=== PATIENT | female | born 1945 | race Caucasian/White ===

== ENCOUNTER → 2016-11-12 | Outpatient (CLI) | payer MEDICARE ==
--- NOTE | 2016-11-12 16:31 | MR ---
EXAMINATION TYPE: MR lumbar spine wo con DATE OF EXAM: 11/12/2016 3:52 PM COMPARISON: NONE HISTORY: 71-year-old female INTERVERTEBRAL DISC DISORDER RADICULOPATHY. TECHNIQUE: Multiplanar, multisequence images of the lumbar spine were acquired. Contrast was not admi nistered as the exam was ordered without contrast. FINDINGS: Questionable large T2 hyperintense lesion partially visualized in the right hepatic lobe, axial T2 im age 30. This could be further evaluated with liver ultrasound. No prevertebral or paravertebral soft tissue abnormality. There is postsurgical change of L3-L5 posterior lumbar fusion. There is corresponding laminectomy and fixed grade 1 retrolisthesis at the fused L3-L4 level. Above the fusion at L2-L3, there is grade 1 retrolisthesis. Degenerative disc disease with bulging discs particularly above the fusion at L2-L3 and below the fus ion at L5-S1. Degenerative disc disease with desiccated and narrowed discs, particularly at L5-S1. Facet arthropathy at L2-L3 and L5-S1. Conus medullaris is normal. Vertebral body heights are preserved. Fatty matrix hemangioma within the T12 vertebral body without suspicious bone marrow replacement. At T12-L1, no spinal canal or neural foraminal stenosis. At L1-L2, minimal bulging disc without canal or foraminal stenosis. At L2-L3, there is grade 1 retrolisthesis with facet degenerative change and mild disc bulge. No sign ificant spinal canal stenosis. However, there appears to be kozq-hu-[id number] right neuroforaminal beni nosis. At L3, difficult to exclude some of the right transpedicular screw extending outside of the bone. Thi s appearance may be artifactual. At L3-L4, there is fixed retrolisthesis. Facet degenerative change with lateral disc osteophyte compl ex. This results in mild left and moderate right neuroforaminal stenosis. No spinal canal stenosis. L4, difficult to exclude some of the right transpedicular screw extending outside of the bone. It has a slight superior course and may minimally extend into the superior aspect of the right L4-L5 neurof oramen. At L4-L5, there is facet degenerative change with mild to moderate right and mild left neuroforaminal stenosis. No spinal canal stenosis. At L5, the left transpedicular screw may extend laterally outside of the bone and may extend into the superior aspect of the L5-S1 neuroforamen. At L5-S1, there is large diffuse disc bulge with ligamentum flavum thickening and facet degenerative change. Changes result in mild right and moderate left neural foraminal stenosis with mild spinal can al stenosis. IMPRESSION: 1. Status post L3-L5 posterior and interbody fusion with corresponding laminectomies. 2. Unable to adequately assess the hardware positioning by MRI. Some of the transpedicular screws may be extend slightly outside of the bone and a couple of the screws may minimally extend into the supe rior aspect of the neuroforamina. This appearance may be artifactual. CT could further evaluate if in dicated. 3. Degenerative changes above and below the fusion at L2-L3 and L5-S1. At L2-L3, there is a grade 1 r etrolisthesis with mild to moderate right neuroforaminal stenosis. 4. At L5-S1, there is mild spinal canal stenosis with moderate left neuroforaminal stenosis. 5. At the fused L3-L4 level, there is moderate right neuroforaminal stenosis and trau-ih-aslvythu on the right at the fused L4-L5 level. 6. There may be a large T2 hyperintense lesion within the right hepatic lobe only partially visualize d on the last image. Liver ultrasound recommended.
== END | disposition home or self-care (01) ==
LOC: RADMRIMAIN 15:02
PROVIDERS: ATTEND Emergency Medicine
DX: M48.07 Spinal stenosis, lumbosacral region (principal); M99.73 Connective tissue and disc stenosis of intervertebral foramina of lumbar region; M51.17 Intervertebral disc disorders with radiculopathy, lumbosacral region; M43.16 Spondylolisthesis, lumbar region; M47.27 Other spondylosis with radiculopathy, lumbosacral region; M43.26 Fusion of spine, lumbar region; Z98.890 Other specified postprocedural states; Z98.1 Arthrodesis status
CPT/HCPCS: 72148

== ENCOUNTER → 2016-11-18 | Outpatient (CLI) | payer MEDICARE ==
--- NOTE | 2016-11-18 14:00 | US ---
EXAMINATION TYPE: US abdomen limited DATE OF EXAM: 11/18/2016 12:37 PM COMPARISON: MRI lumbar spine 11/12/2016. CT abdomen and pelvis June 27, 2016 CLINICAL HISTORY: R93.8 ABN FINDINGS ON IMAGING/BODY STRUCTURES. EXAM MEASUREMENTS: Liver Length: 12.6 cm Gallbladder Wall: 0.2 cm CBD: 0.6 cm Right Kidney: 9.3 x 4.6 x 5.5 cm Pancreas: wnl Liver: Slight hyperechoic area right lobe; ?hemangioma vs technical artifact; borders are not well defined Gallbladder: No stones seen Evidence for sonographic Barton's sign: no CBD: wnl Right Kidney: No hydronephrosis or masses seen Pancreas is suboptimally evaluated on images saved secondary to shadowing from overlying bowel gas. V isualized liver is heterogeneous in appearance without evidence of worrisome intrahepatic mass or int rahepatic ductal dilatation. Evaluation for focal masses slightly suboptimal due to the heterogeneity . No large cyst is seen to correspond to the well-defined T2 hyperintense area on MRI, I suspect this likely reflects artifact as is only present on single axial image. IMPRESSION: No worrisome intrahepatic mass or intrahepatic ductal dilatation is seen to correlate to area of MRI concern inferior right hepatic lobe.
== END | disposition home or self-care (01) ==
LOC: RADUSWWP 12:12
PROVIDERS: ATTEND Internal Medicine
DX: R93.8 Abnormal findings on diagnostic imaging of other specified body structures (principal)
CPT/HCPCS: 76705

== ENCOUNTER → 2016-12-14 | Outpatient (CLI) | payer MEDICARE ==
--- NOTE | 2016-12-15 08:20 | CT ---
EXAMINATION TYPE: CT lumbar spine wo con DATE OF EXAM: 12/14/2016 6:59 PM COMPARISON: MRI 11/12/2016 HISTORY: Bilateral leg numbness after lumbar laminectomy CT DLP: 930 mGycm. Automated exposure control for dose reduction was used. TECHNIQUE: Unenhanced CT of the lumbar spine was performed. Bone and soft tissue window settings are submitted as well as coronal and sagittal reconstructions. FINDINGS: The bilateral pedicle fixation screws and spinal hardware is intact, without periprosthesis lucencies. The paraspinal soft tissues are negative for acute or subacute findings. There are no foc al skeletal lesions. No incidental extraspinal findings. Degenerative examination: L1-L2: Normal disc space height. No disc herniation protrusion or central stenosis. No facet joint arthropathy. No evidence for foraminal encroachment. L2-L3: The mild L2 retrolisthesis upon L3 which was seen on the November 12, 2016 MRI is unaltered. Modera tely diminished disc space height, with moderate circumferential disc bulge. Mild facet joint arthrop athy. No evidence for foraminal encroachment. L3-L4: Metallic disc spacer present. Moderate-marked loss of disc height. No focal disc extrusion/ pr otrusion, and no central stenosis. No evidence for foraminal encroachment. L4-L5: Metallic disc spacer present. Moderate-marked loss of disc height. No focal disc extrusion/ pr otrusion, and no central stenosis. No evidence for foraminal encroachment. L5-S1: There is marked disc space narrowing with moderate marked circumferential disc bulge and with bilateral ligamentum flavum hypertrophy and bilateral facet osteophytic spurring; these changes produ ce lateral recess and central canal stenosis at the lumbosacral junction. The disc bulge causes a bro ad-based anterior epidural defect, abutting the S1 nerve roots within their lateral recesses bilatera lly. There is also narrowing of the bilateral L5 neural foramen due to osteophytic spurring and disc bulging. Overall appearance is similar when compared to the MRI of November 12, 2016. IMPRESSION: 1. NO ACUTE PROCESS. 2. L5-S1 DEGENERATIVE DISC AND FACET CHANGES
== END | disposition home or self-care (01) ==
LOC: RADCTMAIN 18:38
PROVIDERS: ATTEND Specialist
DX: M51.17 Intervertebral disc disorders with radiculopathy, lumbosacral region (principal); M46.07 Spinal enthesopathy, lumbosacral region; M96.1 Postlaminectomy syndrome, not elsewhere classified
CPT/HCPCS: 72131

== ENCOUNTER → 2017-05-10 | Outpatient (CLI) | payer MEDICARE ==
--- NOTE | 2017-05-10 16:04 | XR ---
EXAMINATION TYPE: XR chest 2V DATE OF EXAM: 05/10/2017 COMPARISON: Chest x-ray 06/26/2016 HISTORY: Presurgical, lumbar radiculopathy TECHNIQUE: Frontal and lateral views of the chest are obtained. FINDINGS: Patient is post median sternotomy and cardiac valve replacement. Surgical clips present in the right paratracheal location. Postop change noted in the lumbar spine. Strand-like densities in t he left midlung are stable and likely represents scar. There is no evident pneumonia, pneumothorax, o r pleural effusion. Cardiac mediastinal silhouette, pulmonary vascularity and manuel are stable. IMPRESSION: No acute cardiopulmonary process.
== END | disposition home or self-care (01) ==
LOC: RADXRMAIN 15:03
PROVIDERS: ATTEND Physical Medicine & Rehabilitation
DX: Z01.810 Encounter for preprocedural cardiovascular examination (principal); M54.16 Radiculopathy, lumbar region
CPT/HCPCS: 71020; 93005

== ENCOUNTER → 2017-05-12 | Outpatient (CLI) | payer MEDICARE ==
[2017-05-12 11:45] LABS: CH 29.7; CHCM 32.2; HCT 40.4 % (34.0-46.0); HDW 2.24; HGB 13.1 gm/dL (11.4-16.0); MCH 29.9 pg (25.0-35.0); MCHC 32.3 g/dL (31.0-37.0); MCV 92.6 fL (80.0-100.0); Mean Platelet Volume 7.7; RBC 4.36 m/uL (3.80-5.40); RDW 14.2 % (11.5-15.5)
[2017-05-12 11:48] LABS: Appearance,Urine Clear (Clear); Bilirubin,Urine Negative (Negative); Glucose,Urine (UA) Negative (Negative); Ketones,Urine Negative (Negative); Leukocyte Esterase,Urine Negative (Negative); Nitrite,Urine Negative (Negative); PH, Urine 6.5 (5.0-8.0); Protein,Urine Negative (Negative); Specific Gravity,Urine 1.014 (1.001-1.035); UA Billing (MACRO vs. MICRO) CHEM; Urobilinogen,Urine <2.0 mg/dL (<2.0)
[2017-05-12 11:52] LABS: Prothrombin Time 9.9 sec (9.0-12.0)
[2017-05-12 11:57] LABS: Blood Urea Nitrogen 13 mg/dL (7-17); Non-African American GFR(MDRD) >60 (>60 ml/min/1.73 sqM)
[2017-05-12 14:17] LABS: Anion Gap 9 mmol/L; Carbon Dioxide 25 mmol/L (22-30); Chloride 106 mmol/L (98-107); Glucose 92 mg/dL (74-99); Potassium 4.2 mmol/L (3.5-5.1); Sodium 140 mmol/L (137-145)
[2017-05-12 14:48] LABS: Nucleated Red Blood Cells 0 /100 WBC (0-0); Total Cells Counted 100
[2017-05-12 14:49] LABS: RBC Morphology Normal
== END | disposition home or self-care (01) ==
LOC: LABWHC1 10:45
PROVIDERS: ATTEND Specialist
DX: Z01.812 Encounter for preprocedural laboratory examination (principal); M54.16 Radiculopathy, lumbar region
CPT/HCPCS: 36415; 80051; 81003; 82565; 82947; 84520; 85027; 85610; 85730; 87070; 87086

== ENCOUNTER → 2017-12-22 | Outpatient (CLI) | payer MEDICARE ==
--- NOTE | 2017-12-22 14:52 | BD ---
EXAMINATION TYPE: Axial Bone Density DATE OF EXAM: 12/22/2017 COMPARISON: 2001 CLINICAL HISTORY: post menopausal Height: 5'1 Weight: 128 FRAX RISK QUESTIONS: History of Fracture in Adulthood: y L spine : surgery 2014 Secondary Osteoporosis: 3. Menopause before 43: y RISK FACTORS HISTORY OF: Postmenopausal woman: y Lost more than 2 inches in height since high school: y MEDICATIONS: Additional Medications: reflux, heart, Additional History: drop foot EXAM MEASUREMENTS: Bone mineral densitometry was performed using the [employer] System. Bone mineral density about the R hip (g/cm2): 0.800 Bone mineral density about the L hip (g/cm2): 0.827 T Score values are as follows: -----R Neck: -1.7 -----L Neck: -1.5 -----R Total: -0.9 -----L Total: -1.0 Bone mineral density has: Decreased -14.5% since study of: 10/04/2001 Bone mineral density about the L Wrist (g/cm2): 0.491 T Score values are as follows: -----Dist. R+U: -2.7 -----Prox. R+U: -2.6 -----Radius total: -3.0 IMPRESSION: Osteoporosis (T Score less than -2.5). There is increased fracture risk and therapy is usually indicated based on age. Re-Screen 1-2 years. NOTE: T-SCORE=SD OF THE YOUNG ADULT MEAN.
--- NOTE | 2017-12-23 14:17 | MM ---
Reason for exam: screening (asymptomatic). Last mammogram was performed 1 year and 10 months ago. History: Patient is postmenopausal. Family history of premenopausal breast cancer in mother at age 38. Benign stereotactic core biopsy of the right breast, April 06, 2003. Took estrogen for 20 years 9 months. Physical Findings: A clinical breast exam by your physician is recommended on an annual basis and results should be correlated with mammographic findings. MG Screening Mammo w CAD Bilateral CC and MLO view(s) were taken. Prior study comparison: February 14, 2016, bilateral MG screening mammo w CAD. February 07, 2015, bilateral MG screening mammo w CAD. The breast tissue is extremely dense which could obscure a lesion on mammography. Previous mammotome biopsy in the right breast, stable adjacent grouped calcifications. No significant changes when compared with prior studies. ASSESSMENT: Benign, BI-RAD 2 RECOMMENDATION: Routine screening mammogram of both breasts in 1 year.
== END | disposition home or self-care (01) ==
LOC: RADMAMWWP 10:17
PROVIDERS: ATTEND Internal Medicine
DX: Z12.31 Encounter for screening mammogram for malignant neoplasm of breast (principal); M81.0 Age-related osteoporosis without current pathological fracture; Z78.0 Asymptomatic menopausal state
CPT/HCPCS: 77067; 77080

== ENCOUNTER 2018-09-19 10:24 | Observation (INO) | payer MEDICARE ==
[2018-09-19] MEDS ORDERED: ASPIRIN 81 MG PO STA (11:17)
[2018-09-19] MEDS ORDERED: NITROGLYCERIN OINT 1 INCH/GM PACKET TOPICAL STA (11:17)
[2018-09-19] MEDS ORDERED: HEPARIN SODIUM,PORCINE 5,000 UNIT/ML 1 ML VIAL IV STA (11:17)
[2018-09-19] MEDS ORDERED: DILTIAZEM 125 MG in SODIUM CHLORIDE 0.9% 100 ML IV SCH (11:30)
[2018-09-19] MEDS ORDERED: HEPARIN SOD,PORK IN 0.45% NACL 25,000 UNIT in 0.45% NACL 1 250ML.BAG IV SCH (11:30)
[2018-09-19 11:53] LABS: Basophils % (A) 1 %; Eosinophils # (A) 0.1 k/uL (0-0.7); Eosinophils % (A) 2 %; HCT 48.2 % (34.0-46.0); HGB 15.5 gm/dL (11.4-16.0); Lymphocytes # (A) 2.1 k/uL (1.0-4.8); Lymphocytes % (A) 39 %; MCH 29.1 pg (25.0-35.0); MCHC 32.1 g/dL (31.0-37.0); MCV 90.7 fL (80.0-100.0); Mean Platelet Volume 6.6; Monocytes # (A) 0.2 k/uL (0-1.0); Monocytes % (A) 5 %; Neutrophils # (A) 2.8 k/uL (1.3-7.7); Neutrophils % (A) 53 %; Platelet Count 210 k/uL (150-450); RBC 5.32 m/uL (3.80-5.40); RDW 14.6 % (11.5-15.5); WBC 5.3 k/uL (3.8-10.6)
--- NOTE | 2018-09-19 12:02 | ED ---
Chest Pain HPI - General Chief Complaint: Chest Pain Stated Complaint: chest pain/SOB Source: patient Mode of arrival: ambulatory - History of Present Illness Initial Comments: This 73-year-old white female presents with a complaint of some intermittent chest pain over the last week. She states that it feels like a pressure type sensation in her left chest that usually only lasts several seconds. It will occur with exertion but will also occur at rest. It does not radiate. It is associated with some shortness of breath but she denies any palpitations. She does relate a history of previous coronary artery disease as well as valve replacement and atrial fibrillation. She states that she has had 2 ablations done for atrial fibrillation. She is not normally in atrial fibrillation. She previously was on blood thinners but these were stopped as she became anemic. She sees Dr. Bolivar from cardiology. She denies any leg pain or swelling. No other complaints or modifying factors. - Related Data Home Medications Medication Instructions Recorded Confirmed Diltiazem HCl [Cardizem Cd] 360 mg PO DAILY 08/02/15 09/19/18 Temazepam 30 mg PO HS PRN 02/26/16 09/19/18 Ibandronate Sodium 150 mg PO Q30D 09/19/18 09/19/18 Omeprazole [PriLOSEC] 20 mg PO DAILY 09/19/18 09/19/18 Red Yeast Rice 600 mg PO DAILY 09/19/18 09/19/18 Allergies Allergy/AdvReac Type Severity Reaction Status Date / Time atenolol Allergy VERY LOW Verified 09/19/18 12:25 PULSE, LOW BLOOD PRESSURE Influenza Virus Vaccines AdvReac Severe Rapid Verified 09/19/18 12:25 Heart Rate sertraline [From Zoloft] AdvReac Mild bad dreams Verified 09/19/18 12:25 BETA BLOCKERS Allergy LOW BLOOD Uncoded 10/08/16 10:18 PRESSURE,LOW HEART RATE Review of Systems ROS Statement: Those systems with pertinent positive or pertinent negative responses have been documented in the HPI. ROS Other: All systems not noted in ROS Statement are negative. Past Medical History Past Medical History: Atrial Fibrillation, Coronary Artery Disease (CAD), GERD/Reflux, Hyperlipidemia, Musculoskeletal Disorder, Osteoarthritis (OA), Supraventricular Tachycardia (SVT) Additional Past Medical History / Comment(s): Recent admission to [facility] w/ Hbg of 5,Coronary artery disease, aortic valve replacement for aortic stenosis, migraine headaches, GI bleed,nephrolithiasis History of Any Multi-Drug Resistant Organisms: None Reported Past Surgical History: Back Surgery, Coronary Bypass/CABG, Hysterectomy, Orthopedic Surgery Additional Past Surgical History / Comment(s): LEFT HAND SURGERY, BACK SURGERY X2, coronary artery bypass surgery and aortic valve replacement and repair of a cardiac hole/defect, probably a PFO, EGD and colonoscopy that was done in June 2016 Past Anesthesia/Blood Transfusion Reactions: No Reported Reaction Additional Past Anesthesia/Blood Transfusion Reaction / Comment(s): Was confused when waking up from open-heart surgery. Past Psychological History: No Psychological Hx Reported Smoking Status: Former smoker Past Alcohol Use History: None Reported Past Drug Use History: None Reported - Past Family History Mother Family Medical History: No Reported History Father Additional Family Medical History / Comment(s): embolism General Exam - General Exam Comments Initial Comments: GENERAL: The patient is well nourished and well hydrated. VITAL SIGNS: Heart rate, blood pressure, respiratory rate reviewed as recorded in nurse's notes. EYES: Pupils are round and reactive. Extraocular movements are intact. No conjunctival / lid redness or swelling. ENT: No external evidence of injury, swelling, or ecchymosis. Airway is patent. Throat is clear. NECK: Nontender. No swelling or evidence of injury. No subcutaneous emphysema. Trachea is midline. No thyroid mass. HEART: Tachycardic irregular rhythm noted at 110. Good peripheral pulses. LUNGS/CHEST: Breath sounds clear and equal bilaterally. No rales, rhonchi, or wheezes. No ecchymosis, subcutaneous emphysema, or tenderness. ABDOMEN: Abdomen soft without tenderness. No palpable masses or organomegaly. No peritoneal signs. No abdominal wall swelling or ecchymosis. EXTREMITIES: No extremity tenderness. Normal muscle tone and function. No thoracolumbar tenderness. NEUROLOGIC: Sensation is grossly intact. Cranial nerve exam reveals face is symmetrical, tongue is midline, speech is clear. SKIN: No abrasions or ecchymosis is noted. No induration or masses noted. PSYCHIATRIC: Alert and oriented. Appropriate behavior and judgment. Course Vital Signs 09/19/18 09/19/18 09/19/18 10:34 10:56 11:00 Temperature 97.4 F L Pulse Rate 81 125 H 90 Pulse Rate [ Scientific Editor ] Respiratory 18 15 19 Rate Blood Pressure 115/70 145/92 O2 Sat by Pulse 99 98 99 Oximetry 09/19/18 09/19/18 09/19/18 11:32 11:34 12:00 Temperature Pulse Rate 93 96 Pulse Rate [ 105 H Scientific Editor ] Respiratory 18 16 Rate Blood Pressure 109/81 O2 Sat by Pulse 99 99 Oximetry 09/19/18 13:00 Temperature Pulse Rate 78 Pulse Rate [ Scientific Editor ] Respiratory 16 Rate Blood Pressure 141/89 O2 Sat by Pulse 96 Oximetry Chest Pain MDM - MDM The patient was seen and examined. All diagnostics were reviewed. EKG shows atrial fibrillation at a rate of 109. There is no acute ST-T wave changes noted. The QRS duration is 82 and the QTc interval is 476. An IV is established and she does receive heparin intravenously. She was going to have Cardizem started but her heart rate came down spontaneously to between 70-80 bpm. The laboratories reviewed and is unremarkable. The chest x-ray does not show any acute processes. She is doing well on recheck and is chest pain-free. The case is discussed with Dr. Reveles and he is agreeable with admission with cardiology to consult. Disposition Clinical Impression: Atrial fibrillation with rapid ventricular response, Chest pain, Dyspnea, Unstable angina Disposition: ADMITTED IP TO THIS HOSP Condition: Fair Is patient prescribed a controlled substance at d/c from ED?: No Referrals: Enoch Reveles MD [Primary Care Provider] - 1-2 days Time of Disposition: 13: Decision Date: 09/19/18 Decision Time: :34
[2018-09-19 12:03] LABS: Albumin 4.8 g/dL (3.5-5.0); Calcium 9.7 mg/dL (8.4-10.2); Magnesium 2.1 mg/dL (1.6-2.3); Potassium 4.4 mmol/L (3.5-5.1); Total Bilirubin 0.7 mg/dL (0.2-1.3); Total Protein 8.4 g/dL (6.3-8.2)
[2018-09-19 12:15] LABS: INR 0.9 (<1.2); Partial Thromboplastin Time 22.8 sec (22.0-30.0); Prothrombin Time 9.8 sec (9.0-12.0)
--- NOTE | 2018-09-19 13:15 | XR ---
EXAMINATION TYPE: XR chest 1V portable DATE OF EXAM: 09/19/2018 COMPARISON: Prior chest x-ray 05/10/2017 HISTORY: Chest pain, irregular heartbeat TECHNIQUE: Single frontal view of the chest is obtained. FINDINGS: There is been interval placement of a thoracic cord stimulator is overlying the midthoraci c spine. Patient is post median sternotomy, paratracheal density surgical clips are again noted. No e vident airspace disease, pneumothorax, or pleural effusion. Postop changes are noted to the lumbar sp ine. Stimulator is present over the right abdomen. 2 metallic density superimposed over the approxima te T10 vertebral body. Patient is rotated. There are cardiac leads. IMPRESSION: No acute process.
[2018-09-19] MEDS ORDERED: NITROGLYCERIN SL TABS 0.4 MG TAB SUBLINGUAL PRN (13:35)
[2018-09-19] MEDS ORDERED: TEMAZEPAM 30 MG CAP PO PRN (13:39)
[2018-09-19] MEDS: NITROGLYCERIN OINT 1 INCH/GM PACKET TOPICAL SCH (20:44)
--- NOTE | 2018-09-19 21:43 | HP ---
HISTORY AND PHYSICAL Lakesha is a 73-year-old female who presented with chief complaint of chest pain. HISTORY OF PRESENT ILLNESS: The patient who does have cardiac history, 73, presented with intermittent chest discomfort, mostly left-sided. The pain though came and went fairly quickly, usually over the past 24-48 hours. The day before on the morning of admission though she was also complaining of lightheadedness, weakness, shortness of breath along with this pain. The pain did come on with exertion and rest. It did not seem to escalate further with exertion though and not associated with any nausea, vomiting. The patient did not have any palpitations. PAST MEDICAL HISTORY: Patient does have a history of previous atrial fibrillation and previous ablated therapies and with a history of previous gastrointestinal bleeding. She was able to be taken off of her blood thinners and seemed to be remaining in sinus rhythm. Other significant past medical history: She does have history of replacement of bicuspid aortic valve and has had some surgery previously for atrial septal defect which was closed also in the past wound. She has had some bypass surgery for coronary artery disease with the HARPER to the LAD and a patch angioplasty with repair of the right-sided superior vena cava. This procedure was done back in 2016 in [place]. She has a history of hypertension and hyperlipidemia. She has also had previous lumbar surgeries for which she has had problems with some chronic pain and history of underlying depression. No history of diabetes or stroke. HOME MEDICATIONS: She does have insomnia and takes temazepam 30 mg at HS that works to some extent. She is also on red yeast rice as she has had problems with statins for cholesterol and she is on 600 mg daily, omeprazole 200 mg daily, ibandronate sodium 150 mg every month for osteoporosis and Cardizem CD 360 mg daily. ALLERGIES: She has had increased sensitivity with low heart rates and blood pressure with atenolol. She has had rapid heart rates with influenza virus vaccine. Sertraline, she has had problems with nightmares. REVIEW OF SYSTEMS: As mentioned in the history of present illness with no unusual headache or no nausea, vomiting. No fever, chills, or cough. No urinary or bowel symptoms. No blood per stool. She does have some chronic trace to 1+ edema intermittently. FAMILY HISTORY: Noncontributory. SOCIAL HISTORY: She is a former smoker, but quit over 20 years ago. She does live locally with her in the [facility]. Only occasional alcohol and once again she does not smoke at this time. PHYSICAL EXAMINATION: She is sitting up in bed in her room. Does not appear to be in any acute distress at this time. VITAL SIGNS: Show a temperature of 97.4 with a pulse of 82 now, which is regular. Respirations are 18. In the emergency room her pulse had gone up to 110 and was irregular and showed atrial fib on the monitor and EKG. Her blood pressure is 143/75, and she is 96% saturated on room air. HEENT is unremarkable. Extraocular movements are intact. Neck is not stiff. There is no definite bruits or adenopathy detected. Lungs were clear. Heart tones were at this time, regular. No definite murmurs or rubs appreciated. Breasts and pelvic exam is deferred. Abdomen is soft and nontender without rebound, guarding, or masses. Extremities reveal some trace pedal edema. The legs are warm. No ulcerations. Neurologically she is alert and oriented. Cranial nerves intact. No focal weakness of the peripheral extremities noted. LABORATORY TESTING: Revealed a white count of 5.3, hemoglobin 15.5 and a platelet count of 210. Her INR was 0.9. Sodium 141 with potassium 4.4. CO2 content of 23. Random blood sugar was 100. She has had troponins done x2 which have been less than 0.012. Total protein is slightly high at 8.4 and albumin 4.8. Liver function tests were good. Chest x-ray showed no acute process. The EKG shows atrial fibrillation rhythm with a very rapid ventricular response but no definite ischemic changes noted in ST-T wave. IMPRESSION: Overall impression is this 73-year-old female presented with chest pain, dizziness, weakness, some increasing shortness of breath over the past 24-48 hours and found to be in atrial fibrillation with a rapid ventricular response which has presently converted to sinus. She did have some left-sided chest pain which has been rather fleeting in nature. There is no reproducible tenderness to the chest wall at this time. She does have a past medical history as stated above with a history of aortic valve replacement and coronary artery disease with bypass surgery along with closure of atrial septal defect and history of hypercholesterolemia and hypertension in the past. as risk factors presently. At this time plans are to monitor the patient. She has been placed on heparin. We will continue her troponin evaluations and cardiology consult has been placed for further evaluation and recommendations regarding her paroxysmal atrial fibrillation. MMODL / IJN: [id number] / CONCEPCION
[2018-09-20] MEDS: NITROGLYCERIN OINT 1 INCH/GM PACKET TOPICAL SCH ×2 (00:18→06:15)
[2018-09-20 01:14] LABS: Cholesterol 239 mg/dL (<200); HDL Cholesterol 78 mg/dL (40-60); LDL Cholesterol,Calculated 138 mg/dL (0-99); Triglycerides 114 mg/dL (<150)
[2018-09-20] MEDS ORDERED: IBANDRONATE SODIUM 150 MG PO SCH (06:00)
[2018-09-20] MEDS ORDERED: PANTOPRAZOLE 40 MG TABLET PO SCH (07:30)
--- NOTE | 2018-09-20 07:40 | P.PN ---
Progress Note - Text Patient is a 73 year old female who presented with chest pain along with increasing shortness of breath and dizziness. She was found to be in atrial fibrillation with a rapid ventricular response. The patient yesterday evening did convert to a sinus rhythm. She is not complaining of any further chest pain at this point. She is easily aroused and in no acute distress this morning. Vital signs show temperature 97.9 with a pulse in the 50s up to 67. Sinus rhythm on monitor pattern. Respiratory rate of 14 and blood pressure 118/78. She is 97% saturated on room air. Lungs are generally clear. Heart tones were regular. No unusual edema. No focal neurological changes. Laboratory Patient is on heparin and her PTT is 67. Troponins less than 0.012. Impression and plans Patient did present with recurrence of her atrial fibrillation but is now in sinus rhythm. She does have underlying coronary artery disease along with previous septal defect closure and other risk factors as delineated in the H&P. She has had previous aortic valve replacement. We'll await for further recommendations from cardiology today regarding further evaluation, treatment and disposition.
[2018-09-20 07:58] VITALS: BP 94/54; PULSE 63; RESP 18; TEMP 97.6
[2018-09-20] MEDS ORDERED: APIXABAN 2.5 MG TABLET PO SCH (09:00)
[2018-09-20] MEDS ORDERED: NON-FORMULARY DRUG (Red Yeast Rice [Red Yeast Rice] 600 MG) PO SCH (09:00)
[2018-09-20] MEDS ORDERED: ASPIRIN 325 MG TAB PO SCH (09:00)
[2018-09-20] MEDS ORDERED: ATORVASTATIN 20 MG TAB PO SCH (09:00)
[2018-09-20] MEDS ORDERED: DILTIAZEM CD 180 MG CAP.ER.24H PO SCH (09:00)
--- NOTE | 2018-09-20 11:17 | CONS ---
CONSULTATION Mrs. Lakesha Sebastian is a 73-year-old lady with a known history of a bicuspid aortic valve and atrial septal defect. Several years ago, she underwent closure of atrial septal defect, but bicuspid aortic valve was addressed about 5 years ago, approximately when she underwent aortic valve replacement with a tissue valve with some repair and enlargement of the aortic outflow tract as well. She also had at that time a MAZE procedure performed as well and a single-vessel bypass to LAD was performed. This lady has history of atrial fibrillation for which she underwent ablation on [address] Soto. She is severely intolerant of beta blockers. She has also had severe GI bleeding requiring multiple units of blood transfusion and since then her anticoagulation was withheld. Her cardiac catheterization was performed in 2014 and she underwent aortocoronary bypass surgery at that time at [facility] with aortic valve replacement as well. She had a single graft placed at the LAD, which was the HARPER graft. She came in yesterday with a 2-day history of having uncomfortable feeling in the chest with a sensation of palpitations and also some chest discomfort. She was found to be in atrial fibrillation with a moderate ventricular rate and she was has been hospitalized. Her [place] troponins are negative, and after she came into the ER while they were preparing to give her Cardizem intravenously, she had a slower heart rate and then converted to sinus rhythm. She feels well has no chest pain at this time. She is in sinus rhythm, asymptomatic at the time of my evaluation. PAST MEDICAL HISTORY: 1. Remarkable for bicuspid aortic valve in ASD. More than 20 years ago she had a ASD repair performed. She had aortic valve replacement and a HARPER to LAD performed in 2014 at [facility]. 2. History of atrial fibrillation status post ablation. 3. Severe intolerance to beta blockers. 4. History of GI bleeding and had anticoagulation was held about 1-1/2 or 2 years ago. MEDICATIONS: At home include Cardizem CD 360 mg daily, she takes Prilosec 20 mg daily. She also takes some temazepam 30 mg at bedtime. ALLERGIES: She is allergic or intolerant of BETA BLOCKERS. She is allergic to ZOLOFT. PHYSICAL EXAMINATION: Blood pressure is 118/70, pulse rate is about 70, sinus. HEENT: Unremarkable. Fundus was not examined by me. Neck is supple. No JVD. I do not hear a carotid bruit. Heart exam reveals S1, S2 with a short systolic murmur at the base. Second heart sound is preserved. Lungs revealed decent air entry. Abdomen is soft, nontender. Lower extremities reveal palpable pulses. No edema. Central nervous system is normal. EKG revealed initially atrial fib moderate ventricular rate. Repeat EKG revealed a sinus mechanism with nonspecific ST changes. IMPRESSION: 1. Paroxysmal atrial fibrillation, back in sinus rhythm. 2. History of aortic valve replacement and single-vessel bypass surgery for bicuspid aortic valve as well as repair of ASD performed surgically more than 25 years ago. 3. History of atrial fibrillation, status post pulmonary vein isolation by Dr. Soto on 2 occasions. 4. Intolerance to beta blockers. RECOMMENDATIONS: Patient is back in sinus rhythm. I am recommending that we start her on Eliquis and after much discussion I will start it at a lower dose of 2.5 mg b.i.d. mainly because of patient's concern about GI bleeding and previous significant bleeding requiring transfusion, which is more than 2 years ago. I will not add any other medications. She has been intolerant of amiodarone and also beta blockers. I will leave her on Cardizem CD 360 mg daily, Eliquis 2.5 mg b.i.d., stop aspirin. She can be discharged and I will see her in the office in 2 weeks. I discussed my thoughts in detail with the patient and we will provide her with some Eliquis samples. Thank you very much for the consult. DAPHNIEL / IJN: [id number] /
--- NOTE | 2018-09-20 11:53 | ECHOF ---
Referral Reason:cp, a-fib MEASUREMENTS -------- HEIGHT: 160.0 cm WEIGHT: 59.0 kg BP: 141/89 RVIDd: 2.8 cm (< 3.3) IVSd: 1.0 cm (0.6 - 1.1) LVIDd: 3.7 cm (3.9 - 5.3) LVPWd: 1.0 cm (0.6 - 1.1) IVSs: 1.5 cm LVIDs: 2.6 cm LVPWs: 1.5 cm LA Diam: 4.3 cm (2.7 - 3.8) LAESV Index (A-L): 35.27 ml/m Ao Diam: 2.6 cm (2.0 - 3.7) MV EXCURSION: 13.536 mm (> 18.000) MV EF SLOPE: 46 mm/s (70 - 150) EPSS: 0.3 cm AV maxP.95 mmHg AV meanP.03 mmHg RAP: 5.00 mmHg RVSP: 29.26 mmHg FINDINGS -------- Atrial fibrillation. This was a technically adequate study. The left ventricular size is normal. Left ventricular wall thickness is normal. Overall left vent ricular systolic function is normal with, an EF between 60 - 65 %. The right ventricle is normal in size. LA is moderately dilated 34-39 ml/m2 The right atrium is normal in size. Peak/mean gradient across the Aortic Valve is 37.95mmHg / 17.03mmHg. There is mild stenosis of the bioprosthetic aortic valve. There is trace mitral regurgitation. Mild tricuspid regurgitation present. Right ventricular systolic pressure is normal at < 35 mmHg. The pulmonic valve was not well visualized. The aortic root size is normal. Normal inferior vena cava with normal inspiratory collapse consistent with estimated right atrial pre ssure of 5 mmHg. There is no pericardial effusion. CONCLUSIONS -------- 1. Atrial fibrillation. 2. This was a technically adequate study. 3. The left ventricular size is normal. 4. Left ventricular wall thickness is normal. 5. Overall left ventricular systolic function is normal with, an EF between 60 - 65 %. 6. The right ventricle is normal in size. 7. LA is moderately dilated 34-39 ml/m2 8. The right atrium is normal in size. 9. Peak/mean gradient across the Aortic Valve is 37.95mmHg / 17.03mmHg. 10. There is mild stenosis of the bioprosthetic aortic valve. 11. There is trace mitral regurgitation. 12. Mild tricuspid regurgitation present. 13. Right ventricular systolic pressure is normal at < 35 mmHg. 14. The pulmonic valve was not well visualized. 15. The aortic root size is normal. 16. Normal inferior vena cava with normal inspiratory collapse consistent with estimated right atrial pressure of 5 mmHg. 17. There is no pericardial effusion. CASING MAN: Ann Marie Fernandes RDCS
--- NOTE | 2018-09-21 09:42 | DS ---
DISCHARGE SUMMARY Mrs. Sebastian is a 73-year-old female who presented to [facility] Emergency Room with chest pain, shortness of breath and dizziness with lightheadedness. She was found to be in atrial fibrillation with a rapid ventricular response requiring IV heparin therapy and further management of her medications. She was seen in consultation with Cardiology. The patient did convert to sinus rhythm. Chest pain and shortness of breath and lightheadedness cleared. She was able to be ambulated. The laboratory values were fairly unremarkable with normal troponins, somewhat elevated BNP value in the , but otherwise were essentially unremarkable. She did have the echocardiogram that was consistent with atrial fibrillation, normal LV size and thickness. The ejection fraction was 60%-65%. Peak gradient across the aortic valve was 37.9 mm and there was mild stenosis across the cyst that she has had. No effusion noted. Patient as mentioned was seen by Cardiology and please refer to their consultation. The plan was for patient to resume taking Eliquis 2.5 twice a day and also lovastatin for cholesterol 10 mg tablets half-tablet daily. Other medications will be her diltiazem or Cardizem 360 mg daily for her osteoporosis. She is on ibandronate 150 mg every 30 days, Prilosec 20 mg daily for reflux. She is on red yeast rice 600 mg daily, temazepam 30 mg at bedtime for sleep. Her cholesterol values revealed a cholesterol of 239. LDL cholesterol was 138 and HDL was 78. Her albumin was 4.8, sodium 141 with potassium 4.1, BUN of 16, with creatinine 1.02, given her GFR of 54, blood sugar was 100. Liver function tests were satisfactory and as mentioned troponins x3 were less than 0.012. CBC unremarkable with a white count 5 3, hemoglobin 15.5, and a platelet count of 210. Chest x-ray revealed no acute disease. Her EKG showed atrial fibrillation with a rapid ventricular response. FINAL DISCHARGE DIAGNOSES: 1. Atrial fibrillation with a rapid ventricular response with resulting shortness of breath, chest pain, and lightheadedness with dizziness. 2. History of a previous atrial septal defect and subsequent aortic bio prosthesis and single-vessel bypass to the LAD with history of previous atrial fibrillation and difficult tolerance to beta blockers. 3. History of gastrointestinal bleeding 1-2 years ago for which anticoagulants were initially held at that time. Previous pulmonary vein isolation by Cardiology. 4. Hypertension. 5. Hyperlipidemia. 6. Previous lumbar surgeries and chronic pain syndrome. 7. History of depression. Patient will follow up with myself and Cardiology and associates over this and next week and return to the ER for any worsening symptoms or call office. Prognosis overall is fair. DAPHNIEL / IJN: [id number] / MTDD
== END 2018-09-20 11:00 | disposition home or self-care (01) ==
LOC: EC 10:24 → 1SOBS 13:42
PROVIDERS: ADMIT Internal Medicine; ATTEND Internal Medicine
DX: I48.0 Paroxysmal atrial fibrillation (principal); Z87.19 Personal history of other diseases of the digestive system; I10 Essential (primary) hypertension; E78.5 Hyperlipidemia, unspecified; G89.4 Chronic pain syndrome; F32.9 Major depressive disorder, single episode, unspecified; Z95.2 Presence of prosthetic heart valve; I25.10 Atherosclerotic heart disease of native coronary artery without angina pectoris; M81.0 Age-related osteoporosis without current pathological fracture; G47.00 Insomnia, unspecified; K21.9 Gastro-esophageal reflux disease without esophagitis; M19.90 Unspecified osteoarthritis, unspecified site; I47.1 Supraventricular tachycardia; Z79.899 Other long term (current) drug therapy; Z88.8 Allergy status to other drugs, medicaments and biological substances; Z88.7 Allergy status to serum and vaccine; Z87.442 Personal history of urinary calculi; Z95.1 Presence of aortocoronary bypass graft; Z87.891 Personal history of nicotine dependence; Z83.2 Family history of diseases of the blood and blood-forming organs and certain disorders involving the immune mechanism
CPT/HCPCS: 96366 ×3; 96376; 96365; 99285; 36415; 93005; 93306; 83880; 80061; 80053; 83735; 84484; 85025; 85610; 85730 ×2; 71045; G0378 ×2; J1644 ×2

== ENCOUNTER → 2019-08-03 | Outpatient (CLI) | payer MEDICARE ==
--- NOTE | 2019-08-03 12:36 | CT ---
EXAMINATION TYPE: CT brain wo con DATE OF EXAM: 08/03/2019 HISTORY: Right sided shooting pain today. Recent tooth biopsy CT DLP: 1054.2 mGycm. Automated Exposure Control for Dose Reduction was Utilized. TECHNIQUE: CT scan of the head is performed without contrast. COMPARISON: CT brain August 02, 2015. FINDINGS: There is no acute intracranial hemorrhage or midline shift identified. There is diffuse v entricular and sulcal prominence consistent with diffuse age-related cerebral atrophy. There is low- attenuation in the periventricular white matter consistent with chronic small vessel ischemic change. The globes are intact and the visualized sinuses are clear. Patchy opacification right mastoid air cells redemonstrated similar to prior. IMPRESSION: No acute intracranial hemorrhage or midline shift. There is mild diffuse age-related ce rebral atrophy and chronic small vessel ischemic change redemonstrated. Possible right-sided mastoid itis versus retained fluid. Correlate clinically. No significant change from prior study.
== END | disposition home or self-care (01) ==
LOC: RADCTMAIN 12:00
PROVIDERS: ATTEND Family Medicine
DX: G31.1 Senile degeneration of brain, not elsewhere classified (principal); I67.82 Cerebral ischemia
CPT/HCPCS: 70450

== ENCOUNTER → 2020-06-18 | Outpatient (CLI) | payer MEDICARE ==
[2020-06-18 11:55] VITALS: BP 161/73; PULSE 50; RESP 18; TEMP 98.3
--- NOTE | 2020-06-18 12:19 | P.GSHP ---
History of Present Illness H&P Date: 06/18/20 Chief Complaint: mass right breast Lakesha is a 75 year old white female with a complaint of a mass in her right breast, last mammogram was approximately 2 and half years ago. She was noting some discomfort in her left breast and therefore the mammogram was done. On mammogram she was noted to have some distortion and an ultrasound was performed on the ultrasound approximately 1-1.2 cm lesion in the right breast was identified. She does complain of some left breast pain which has been present for approximately 3 months. The pain starts in the upper inner area of the breast and radiates laterally. She has not had any fever or chills. she has not changed any medications. She does not feel any lumps masses or nodules in either breast. The pain is annoying aching in nature. It is at 3 which goes up to about a 5. Nothing seems to make it better but movement makes it worse. She was scheduled for a computed tomography scan tomorrow to evaluate whether this may be musculoskeletal in nature. Family History Mother of breast cancer when patient was to Brother colon cancer Hormonal history: Menarche: 14 , breast fed positive First. H 20 Menopause in her 40s, hysterectomy at 23 was removed was left Control pills approximately 5 years Medical history: 1. Congenital heart defect Aortic stenosis Reflux High cholesterol Surgical history: Congenital heart defect patch 2016 repair aortic valve Back surgery 2 4 cardiac ablations for atrial fib Social history: Smokes stopped 40 years ago Alcohol: Social not now Drugs: Negative - Constitutional Constitutional: Denies chills, Denies fever - EENT Eyes: denies blurred vision, denies pain Ears: bilateral: decreased hearing, deny: tinnitus Ears, nose, mouth and throat: Reports headache, Denies sore throat - Breasts Breasts: bilateral: as per HPI - Cardiovascular Cardiovascular: Reports as per HPI - Respiratory Respiratory: Denies cough, Denies 7 - Gastrointestinal Gastrointestinal: Denies abdominal pain, Denies diarrhea, Denies nausea, Denies vomiting - Genitourinary (Female) Comment: kidney stones seen on x ray in past but not treated Genitourinary: Reports kidney stones, Denies dysuria, Denies hematuria - Menstruation Menstruation: Reports post hysterectomy - Musculoskeletal Comment: Osteoarthritis, osteoporosis Musculoskeletal: Reports leg numbness/tingling - Integumentary Integumentary: Reports pruritus, Denies rash - Neurological Neurological: Reports numbness, Reports weakness - Psychiatric Psychiatric: Reports anxiety, Reports depression - Endocrine Endocrine: Reports weight change - Hematologic/Lymphatic Comment: on eliquis Hematologic/Lymphatic: Reports as per HPI - Allergic/Immunologic Allergic/Immunologic: Reports as per HPI Past Medical History Past Medical History: Atrial Fibrillation, Coronary Artery Disease (CAD), GERD/Reflux, Hyperlipidemia, Musculoskeletal Disorder, Osteoarthritis (OA), Supraventricular Tachycardia (SVT) Additional Past Medical History / Comment(s): Recent admission to [facility] w/ [facility] 5,Coronary artery disease, aortic valve replacement for aortic stenosis, migraine headaches, GI bleed,nephrolithiasis History of Any Multi-Drug Resistant Organisms: None Reported Past Surgical History: Back Surgery, Coronary Bypass/CABG, Hysterectomy, Orthopedic Surgery Additional Past Surgical History / Comment(s): LEFT HAND SURGERY, BACK SURGERY X2, coronary artery bypass surgery and aortic valve replacement and repair of a cardiac hole/defect, probably a PFO, EGD and colonoscopy that was done in June 2016 Past Anesthesia/Blood Transfusion Reactions: No Reported Reaction Additional Past Anesthesia/Blood Transfusion Reaction / Comment(s): Was confused when waking up from open-heart surgery. Past Psychological History: No Psychological Hx Reported Past Alcohol Use History: None Reported Additional Past Alcohol Use History / Comment(s): Quit smoking 1979,started smoking as a teenager. Smoked less than 1 PPD. Past Drug Use History: None Reported - Past Family History Mother Family Medical History: No Reported History Father Additional Family Medical History / Comment(s): embolism Medications and Allergies Home Medications Medication Instructions Recorded Confirmed Type Diltiazem HCl [Cardizem Cd] 360 mg PO DAILY 08/02/15 09/19/18 History Temazepam 30 mg PO HS PRN 02/26/16 09/19/18 History Ibandronate Sodium 150 mg PO Q30D 09/19/18 09/19/18 History Omeprazole [PriLOSEC] 20 mg PO DAILY 09/19/18 09/19/18 History Red Yeast Rice 600 mg PO DAILY 09/19/18 09/19/18 History Apixaban [Eliquis] 2.5 mg PO BID #30 tab 09/20/18 Rx Rosuvastatin [Crestor] 5 mg PO DAILY #30 tablet 09/20/18 Rx Allergies Allergy/AdvReac Type Severity Reaction Status Date / Time atenolol Allergy VERY LOW Verified 09/19/18 12:25 PULSE, LOW BLOOD PRESSURE Influenza Virus Vaccines AdvReac Severe Rapid Verified 09/19/18 12:25 Heart Rate sertraline [From Zoloft] AdvReac Mild bad dreams Verified 09/19/18 12:25 BETA BLOCKERS Allergy LOW BLOOD Uncoded 10/08/16 10:18 PRESSURE,LOW HEART RATE Surgical - Exam BMI 27.1 - General well developed, well nourished, no distress - Eyes normal ocular movement - ENT normal pinna, normal nares - Neck no masses, trachea midline - Respiratory normal expansion, normal respiratory effort, clear to auscultation - Cardiovascular Systolic ejection murmur, atrial fib Heart Sounds: normal: S1, S2 - Abdomen Abdomen: soft, non tender, bowel sounds, no guarding, no rigid, no rebound - Integumentary well healed scar from heart surgery - Neurologic no disoriented, no combative - Musculoskeletal normal gait, normal posture - Psychiatric oriented to time, oriented to person, oriented to place, speech is normal, mem ory intact breast exam: BRA 34B Inspection: Grade 2 ptosis bilaterally Palpation: Right breast: Multi-positional exam fibrocystic changes, approximately 1 cm fullness in the upper outer quadrant area corresponding to that seen radiographically Right axilla: No adenopathy of concern Left breast: Multiple positional exam fibrocystic changes no dominant masses or nodules of concern Left axilla: No adenopathy of concern Results Mammogram and ultrasound reviewed with Dr. Hopper Assessment and Plan Assessment: Impression: 1. Palpable mass right breast upper quadrant 2. Radiographic abnormality right breast BIRADS 5 3. Mastodynia left breast/chest wall 4. Atrial fibrillation 5. Patient on our course 6. Congenital heart defect status post surgery Plan: 1. Cardiac clearance, ultrasound biopsy right breast 2. Follow-up after ultrasound core biopsy right breast 3. Patient will check with blood bank booking clerk as to whether they would recommend any antibiotic prophylaxis Risk and benefits of the procedure discussed with the patient. She understands she was given a prescription for Valium Mrs. makes her anxious and she will proceed with the biopsy and follow-up afterwards Cc: Dr. Rojas encounter 50 minutes, > 50% of time in planning and counselling
== END | disposition home or self-care (01) ==
LOC: WWCWWP 11:31
PROVIDERS: ATTEND Surgery
DX: Z53.9 Procedure and treatment not carried out, unspecified reason (principal)

== ENCOUNTER → 2020-06-18 | Outpatient (CLI) | payer MEDICARE ==
--- NOTE | 2020-06-18 14:49 | MM ---
Reason for exam: clinical finding. Last mammogram was performed 2 years and 6 months ago. History: Patient is postmenopausal. Family history of premenopausal breast cancer in mother at age 38. Benign stereotactic core biopsy of the right breast, April 06, 2003. Took estrogen for 20 years 9 months. Physical Findings: Nurse Summary: 1 x 1.5cm nodule in the right breast at 11 o'clock (nurse ts). MG 3D Diag Mammo W/Cad JUAN Bilateral CC and MLO view(s) were taken. XCCL view(s) were taken of the left breast. Prior study comparison: December 22, 2017, bilateral MG screening mammo w CAD. February 14, 2016, bilateral MG screening mammo w CAD. The breast tissue is heterogeneously dense. This may lower the sensitivity of mammography. Developing distortion upper outer quadrant. Patient complains of left breast. Ultrasound recommended. These results were verbally communicated with the patient and result sheet given to the patient on 06/18/20. ASSESSMENT: Incomplete: need additional imaging evaluation, BI-RAD 0 RECOMMENDATION: Ultrasound of both breasts.
--- NOTE | 2020-06-18 14:52 | USB ---
Reason for exam: additional evaluation requested from abnormal screening. History: Patient is postmenopausal. Family history of premenopausal breast cancer in mother at age 38. Benign stereotactic core biopsy of the right breast, April 06, 2003. Took estrogen for 20 years 9 months. US Breast Limited BILAT Technologist: Kaleigh Grier Right limited breast ultrasound including focal area of concern, retroareolar and axilla demonstrates a 1.1 x 1.5 x 1.1cm spiculated lesion at 11 o'clock. Left limited breast ultrasound including focal area of concern, retroareolar and axilla demonstrates no cystic or solid lesion seen. Negative for cystic or solid lesion at area of pain. These results were verbally communicated with the patient and result sheet given to the patient on 06/18/20. ASSESSMENT: Highly suggestive of malignancy, BI-RAD 5 RECOMMENDATION: Ultrasound core biopsy of the right breast. (11 o'clock zone B/C) Called Dr. Steiner's office with mammographic findings and has scheduled an appointment for the patient for 06/18/[address] Nair. Biopsy scheduled for 07/01/20 at 10:30. PRELIMINARY REPORT CALLED AND FAXED TO DR. NAIR ON 06/18/20. [facility]
== END | disposition home or self-care (01) ==
LOC: RADMAMWWP 09:31
PROVIDERS: ATTEND Family Medicine
DX: N64.4 Mastodynia (principal); R92.8 Other abnormal and inconclusive findings on diagnostic imaging of breast
CPT/HCPCS: 77066; 76642; G0279; 77062

== ENCOUNTER → 2020-06-19 | Outpatient (CLI) | payer MEDICARE ==
--- NOTE | 2020-06-19 15:02 | CT ---
EXAMINATION TYPE: CT chest wo con DATE OF EXAM: 06/19/2020 COMPARISON: Chest CT February 28, 2015 HISTORY: Dyspnea, chest pain CT DLP: 173.4 mGycm. Automated Exposure Control for Dose Reduction was Utilized. TECHNIQUE: CT scan of the thorax is performed without IV contrast. FINDINGS: LUNGS: There is azygos lobe/fissure redemonstrated. Focal mild to moderate anterior right middle lob e and lingular scarring is redemonstrated. Focal mild bibasilar linear scarring is again seen. No ple ural effusion or pneumothorax noted bilaterally. No suspicious nodules or masses. MEDIASTINUM: Post CABG changes with mediastinal clips and sternal wires is redemonstrated Lack of IV contrast is noted to limit evaluation for mediastinal and especially hilar adenopathy. There are no d efinitive new greater than 1 cm hilar or mediastinal lymph nodes. There is new metallic aortic valve from 2015 CT. No cardiomegaly or pericardial effusion is seen. Ascending aorta measures up to 3.5 cm diameter axial image 25 OTHER: Mild overall fat replaced atrophy of pancreas with more moderate atrophy in the head. S shaped scoliosis. Spinal stimulator posterior to thoracic spinal canal noted on current exam. There is pers istent hemangioma involving the T12 vertebra. IMPRESSION: Chronic changes without new suspicious acute pulmonary process.
== END | disposition home or self-care (01) ==
LOC: RADCTMAIN 14:19
PROVIDERS: ATTEND Family Medicine
DX: R06.00 Dyspnea, unspecified (principal)
CPT/HCPCS: 71250

== ENCOUNTER → 2020-07-01 | Day surgery (SDC) | payer MEDICARE ==
[2020-07-01 09:47] VITALS: BP 130/74; PULSE 57; RESP 16; TEMP 97.6
--- NOTE | 2020-07-01 11:31 | USB ---
EXAMINATION TYPE: US biopsy breast VAD RT, MG diagnostic mammo RT wo CAD DATE OF EXAM: 07/01/2020 CLINICAL HISTORY: R92.8 Abnormal Mammogram. Abnormal ultrasound. TECHNIQUE: Ultrasound guided core biopsy of right breast with clip placement and follow-up diagnostic two-view mammogram. COMPARISON: Prior mammogram and ultrasound June 18, 2020 and older studies. FINDINGS: The procedure of ultrasound guided core biopsy was explained to the patient. Benefits, alternatives, and risks were discussed. An informed consent was then obtained. The patient was placed in supine positioning for imaging and for the procedure. Preprocedure ultrasound redemonstrates irregular hypoechoic shadowing roughly 1.5 cm lesion in the 11 o'clock position zone BC right breast. The overlying skin was prepped and draped in usual sterile fashion. Lidocaine is used as anesthetic into the skin and subcutaneous tissue. Lidocaine is used as anesthetic in the deeper tissue up to area of concern in the right breast. Under ultrasound guidance, a 12-gauge vacuum assisted biopsy gun device was used to obtain 3 core samples. Following this, a biopsy clip was left in lesion. The patient tolerated the procedure well without any immediate complication. The patient was kept in the radiology department for short stay after the procedure and then discharged home in stable condition. Postprocedure mammogram shows successful deployment of clip corresponding to area of mammogram abnormality. IMPRESSION: Successful, uncomplicated ultrasound guided core biopsy of area of concern in the right breast, full pathology results to follow. High index of suspicion noted at time of procedure. Pathology Results: Malignant RIGHT BREAST, 11:00, ULTRASOUND GUIDED CORE BIOPSY: Invasive lobular carcinoma. See Surgical Pathology Cancer Case Summary and Comment. Recommendation Surgical consult of the right breast. CONCEPCION
== END ==
LOC: RADUSWWP 09:29
PROVIDERS: ATTEND Surgery
DX: C50.911 Malignant neoplasm of unspecified site of right female breast (principal); Z17.0 Estrogen receptor positive status [ER+]; Z88.7 Allergy status to serum and vaccine; Z88.8 Allergy status to other drugs, medicaments and biological substances
CPT/HCPCS: 19083; 88305; 88342; 88341; 77065; A4648; J2001

== ENCOUNTER → 2020-07-11 | Outpatient (CLI) | payer MEDICARE ==
[2020-07-11 14:28] VITALS: BP 124/62; PULSE 58; RESP 18; TEMP 98.7
--- NOTE | 2020-07-11 15:15 | P.PN ---
Subjective Progress Note Date: 07/11/20 Principal diagnosis: right breast cancer Lakesha is a 75 year old white female status post ultrasound-guided core biopsy of the right breast at the 11 o'clock position. This revealed invasive lobular carcinoma. This is a grade 1 ER/ID positive HER-2/mario - lesion. The patient alonso d a CAT scan of the chest performed on [id number] which did not show any new suspicious acute pulmonary process. The patient post core biopsy of the right breast did have some ecchymosis and a small hematoma at the site. 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 The patient is presently on eloquis. Objective - Vital Signs Vital signs: Vital Signs Temp 98.7 F 07/11/20 14:23 Pulse 58 L 07/11/20 14:23 Resp 18 07/11/20 14:23 BP 124/62 07/11/20 14:23 Pulse Ox 97 07/11/20 14:23 Intake & Output 07/10/20 07/11/20 07/11/20 18:59 06:59 18:59 Weight 67.132 kg - Exam BMI 27.5 - Constitutional General appearance: Present: average body habitus - EENT Eyes: Present: EOMI ENT: Present: hearing grossly normal - Neck Neck: Present: normal ROM - Respiratory Respiratory: bilateral: CTA - Cardiovascular Rhythm: regular - Gastrointestinal General gastrointestinal: Present: normal bowel sounds, soft - Integumentary Integumentary: Present: normal turgor - Musculoskeletal Musculoskeletal: Present: gait normal - Psychiatric Psychiatric: Present: A&O x's 3 - Additional findings Additional findings: right breast: Mild ecchymosis at biopsy site Assessment and Plan Assessment: Impression: 1. Stage IA right breast invasive lobular carcinoma 2. Mastodynia left breast/chest wall computed tomography scan was negative 3. Atrial fibrillation 4. Patient on anticoagulation/L [place] 5. Congenital heart defect status post surgery Plan: 1. Cardiac clearance 2. Needle localization partial mastectomy right breast, sentinel node biopsy, sentinel node injection, possible axillary node dissection, possible hyperplastic tissue transfer, possible mastopexy incision 3. Cardiac recommendation as to whether antibiotics would be necessary, and when to stop the anticoagulation 4. Presentation of case at tumor board. Options of lumpectomy versus mastectomy were discussed with the patient. Risks and benefits of both were discussed. Risks include but are not limited to bleeding, infection, reaction to the anesthetic. Additionally the patient understands if margins were to be positive on a lumpectomy may be necessary for a further resection. We discussed sentinel node biopsy discussed with the patient. As well as risk of axillary dissection. Risks include bleeding, inf ection, reaction to the anesthetic. The also include the possibility of numbness to the inner arm, injury to the thoracodorsal or long thoracic nerve, or lymphedema. The patient understands and wishes to proceed. Of concern is the patient's anxiety regarding needle localization before she is asleep. We will recommend patient be given something prior to this being done.
== END | disposition home or self-care (01) ==
LOC: WWCWWP 13:46
PROVIDERS: ATTEND Surgery
DX: Z53.9 Procedure and treatment not carried out, unspecified reason (principal)

== ENCOUNTER 2020-07-30 09:19 | Day surgery (SDC) | payer MEDICARE ==
--- NOTE | 2020-07-25 16:37 | P.PN ---
Subjective Progress Note Date: 07/25/20 Principal diagnosis: right breast stage 1A invasive lobular cancer Lakesha is a 75 year old white female with a complaint of a mass in her right breast, last mammogram was approximately 2 and half years ago. She was noting some discomfort in her left breast and therefore the mammogram was done. On mammogram she was noted to have some distortion and an ultrasound was performed on the ultrasound approximately 1-1.2 cm lesion in the right breast was identified. She does complain of some left breast pain which has been present for approximately 3 months. The pain starts in the upper inner area of the breast and radiates laterally. She has not had any fever or chills. she has not changed any medications. She does not feel any lumps masses or nodules in either breast. The pain is annoying aching in nature. It is at least a 3 which goes up to about a 5. Nothing seems to make it better but movement makes it worse. She was scheduled for a computed tomography scan tomorrow to evaluate whether this may be musculoskeletal in nature. She underwent ultrasound-guided core biopsy of the right breast at the 11 o'clock position. This revealed an invasive lobular carcinoma. It was a grade 1 year. Positive HER-2 and negative lesion. She had a CAT scan of the chest performed on [id number] which did not show any new suspicious acute pulmonary process. The patient post core biopsy of the right breast has some ecchymosis and a small hematoma at this site. Of importance is the fact that the patient has a congenital heart defect and in 2016 she had repair of an aortic valve and has had 4 cardiac ablations for atrial fibrillation. The patient presently is on eloquis. Treatment options were discussed in detail with the patient and initially she was considering a lumpectomy. However she called back and states she would like to have a bilateral mastectomy. Her case was presented at tumor board and again I recommendation was for lumpectomy. The patient was contacted with Marquita monique and after extensive conversation she is very adamant about wanting bilateral mastectomy. She understands that it is a bigger operation and that she would require hospitalization afterwards and despite this she wishes a bilateral mastectomy with a right breast SNB. Family History Mother of breast cancer when patient was to Brother colon cancer Hormonal history: Menarche: 14 , breast fed positive First. H 20 Menopause in her 40s, hysterectomy at 23 was removed was left Control pills approximately 5 years Medical history: 1. Congenital heart defect Aortic stenosis Reflux High cholesterol Surgical history: Congenital heart defect patch 2016 repair aortic valve Back surgery 2 4 cardiac ablations for atrial fib Social history: Smokes stopped 40 years ago Alcohol: Social not now Drugs: Negative - Constitutional Constitutional: Denies chills, Denies fever - EENT Eyes: denies blurred vision, denies pain Ears: bilateral: decreased hearing, deny: tinnitus Ears, nose, mouth and throat: Reports headache, Denies sore throat - Breasts Breasts: bilateral: as per HPI - Cardiovascular Cardiovascular: Reports as per HPI - Respiratory Respiratory: Denies cough - Gastrointestinal Gastrointestinal: Denies abdominal pain, Denies diarrhea, Denies nausea, Denies vomiting - Genitourinary (Female) Comment: kidney stones seen on x ray in past but not treated Genitourinary: Reports kidney stones, Denies dysuria, Denies hematuria - Menstruation Menstruation: Reports post hysterectomy - Musculoskeletal Comment: Osteoarthritis, osteoporosis Musculoskeletal: Reports leg numbness/tingling - Integumentary Integumentary: Reports pruritus, Denies rash - Neurological Neurological: Reports numbness, Reports weakness - Psychiatric Psychiatric: Reports anxiety, Reports depression - Endocrine Endocrine: Reports weight change - Hematologic/Lymphatic Comment: on eliquis Hematologic/Lymphatic: Reports as per HPI - Allergic/Immunologic Allergic/Immunologic: Reports as per HPI Objective - Exam BMI 27.1 - Constitutional General appearance: Present: average body habitus - EENT Eyes: Present: EOMI ENT: Present: hearing grossly normal - Neck Neck: Present: normal ROM - Respiratory Respiratory: bilateral: CTA - Cardiovascular Heart sounds: normal: S1, S2 Abnormal Heart Sounds: Present: systolic murmur - Gastrointestinal Gastrointestinal Comment(s): no guarding or rebound General gastrointestinal: Present: soft - Integumentary Integumentary: Present: normal turgor - Musculoskeletal Musculoskeletal: Present: gait normal - Psychiatric Psychiatric: Present: A&O x's 3, appropriate affect, intact judgment & insight - Additional findings Additional findings: Breast exam: BRA: 34B inspection: 2 ptosis bilateral Palpation: Right breast: multi-positional exam fibrocystic changes, approximately 1 cm fullness in the upper outer quadrant area corresponding to what was seen radiographically, mild ecchymosis at biopsy site Right axilla: No adenopathy of concern Left breast: Multi-positional exam fibrocystic changes no dominant masses or nodules of concern Left axilla: No adenopathy of concern Assessment and Plan Assessment: Impression: 1. Stage IA right breast invasive lobular carcinoma 2. Mastodynia left breast/chest wall CAT scan was negative 3. Atrial fibrillation 4. Patient on anticoagulation 5. Congenital heart defect Plan: 1. Cardiac clearance 2. After discussion with patient she wishes bilateral mastectomy with a right sentinel node biopsy possible axillary node dissection 3. Cardiac recommendation as to whether antibiotics are necessary and when to stop the anticoagulation 5. Case has been presented at tumor board recommendation was for lumpectomy patient is aware of this however she is adamant about wanting bilateral maste ctomy risk and benefits of the procedure have been discussed with the patient. Risk include but are not limited to bleeding, infection, reaction to the anesthetic. She understands she'll have drains in place there required to have a hospital stay. She also understands risk of the possibility of numbness to the inner arm, injury to the thoracodorsal and long thoracic nerve, or lymphedema. The patient was given the option of meeting with radiation oncology prior to surgery to further discuss a possible lumpectomy and she refused. CC: Crystal
[2020-07-26 09:19] VITALS: BMI 27.5
[~2020-07-30 09:19] MED LIST: DEXAMETHASONE SOD PHOSPHATE 4 MG/ML 1 ML VIAL IV ONE; HEPARIN SODIUM,PORCINE 5,000 UNIT/ML 1 ML VIAL SQ PRN; HYDROmorphone 0.5 MG/0.5 ML SYRINGE IVP PRN; LACTATED RINGERS 1,000 ML IV SCH; LIDOCAINE 1% (10MG/ML) FOR IV START INTRADERMA PRN; MIDAZOLAM 2 MG/2 ML VIAL IV PRN; ONDANSETRON 4 MG/2 ML VIAL IVP ONE; Pre Op ABX Message 1 EACH MISC MISCELLANE ONE
--- NOTE | 2020-07-30 10:35 | P.NAPBC ---
NAPBC Queries - NAPBC Queries Was patient's case review presented at [facility] tumor board? If no, comment.: Yes Was patient's pathology reviewed at [facility]? If no, comment.: Yes Was breast conservation surgery offered? If no, comment.: Yes (PPatient insisted on bilateral mastecotomy. ) Was sentinel node biopsy offered? If no, comment.: Yes Was diagnosis confirmed by percutaneous core biopsy? If no, comment.: Yes Is patient mastectomy patient?: Yes Was a preop referral to reconstructive surgeon offered?: Yes Clinical Stage: stage IA invasive lobular
[2020-07-30] MEDS ORDERED: PROPOFOL 10 MG/ML 20 ML VIAL IV ONE (11:11)
[2020-07-30] MEDS ORDERED: LIDOCAINE 1% INJ 10MG/ML (20 ML MDV) ONE (11:11)
[2020-07-30] MEDS ORDERED: HYDROmorphone (PF) 1 MG/ML ONE (11:11)
[2020-07-30] MEDS ORDERED: ePHEDrine SULFATE/0.9% NACL/PF 50 MG/5 ML SYRINGE IV ONE (11:11)
[2020-07-30] MEDS ORDERED: fentaNYL (PF) 50 MCG/ML 2 ML AMP ONE (11:11)
[2020-07-30] MEDS ORDERED: SUCCINYLCHOLINE CHLORIDE VIAL 200 MG/10 ML VIAL IV ONE (11:11)
[2020-07-30] MEDS ORDERED: SODIUM CHLORIDE 0.9% 100 ML with ceFAZolin 2,000 MG IV ONE ×2 (11:30)
--- NOTE | 2020-07-30 12:01 | NM ---
EXAMINATION TYPE: NM sentinel node injection DATE OF EXAM: 07/30/2020 COMPARISON: NONE HISTORY: RIGHT BREAST CANCER TECHNIQUE AND FINDINGS: The procedure of sentinel lymph node injection was explained to the patient. The benefits, alternatives, and risks were discussed. An informed consent was then obtained. Overlying skin is cleaned with sterile alcohol. Following this, 509 uCi Tc99m Tilmanocept was inject ed in the upper outer aspect of the right nipple intradermally. The patient tolerated the procedure well without any immediate complication. The patient was kept in the radiology department for short stay after the procedure and then taken to surgery for surgical p rocedure what is presumed intraoperative gamma probe will be used for sentinel lymph node detection. IMPRESSION: RIGHT breast radiotracer injection for sentinel node localization as above.
[2020-07-30] MEDS ORDERED: LACTATED RINGERS 1,000 ML IV ONE (12:36)
[2020-07-30] MEDS ORDERED: HYDROmorphone 1 MG/ML 1 ML SYRINGE IVP PRN (14:41)
[2020-07-30] MEDS ORDERED: NALOXONE 0.4 MG/ML 1 ML VIAL IV PRN (14:41)
[2020-07-30] MEDS ORDERED: ONDANSETRON 4 MG/2 ML VIAL IVP PRN (14:41)
[2020-07-30] MEDS ORDERED: HYDROcodone/APAP 5-325MG 1 EACH TAB PO PRN (14:41)
--- NOTE | 2020-07-30 14:41 | P.OP ---
Date of Procedure: 07/30/20 Preoperative Diagnosis: Right breast invasive lobular carcinoma Postoperative Diagnosis: Right breast invasive lobular carcinoma Procedure(s) Performed: Bilateral mastectomy, right sentinel node biopsy Anesthesia: ALEX Surgeon: Marguerite Nair Estimated Blood Loss (ml): 25 IV fluids (ml): 1,100 Pathology: other (Bilateral breast, right sentinel node) Condition: stable Disposition: floor Indications for Procedure: Right breast invasive lobular carcinoma, patient encouraged to undergo lumpectomy but she was very interested in having bilateral mastectomy Operative Findings: Fibrofatty breast tissue, sentinel lymph node negative for metastatic disease Description of Procedure: The patient is a 75-year-old white female diagnosed with invasive lobular carcinoma of the right breast. She was encouraged undergo a lumpectomy however she was insistent undergoing bilateral mastectomy with sentinel node biopsy. Risks and benefits of the procedure were discussed with the patient and she wished to proceed. The patient was taken to the operating room, and following induction of general anesthesia the neoprobe was utilized to interrogate the axilla and increased radioactivity was identified. The left breast was approached first. The skin was marked for superior and inferior skin flaps. The superior flap was developed down to the chest wall. The inferior flap was then developed. The breast was brought off the pectoralis muscle from medial to lateral using the electrocautery device as well as the Harmonic scalpel. Any vessels of concern were suture ligated. Additional skin was removed from a superior and inferior flap. The wound was well examined for hemostasis. The wound was irrigated and after we were assured that hemostasis was attained Surgicel in powder form was placed. Following this 2 HELADIO drains were placed. The drains were secured using nylon suture. The subcutaneous tissues were closed using 3-0 Vicryl suture. The skin was reapproximated using a 4-0 Monocryl. Following this the right breast was approached The right breast was marked for superior and inferior skin flaps. The superior flap was developed down to the chest wall. The inferior flap was then developed. The breast was taken off the pectoralis muscle using the electrocautery device as well as ligating any vessels of concern. The axilla was approached. Using the neoprobe the area of greatest radioactivity was identified. The lymph node was identified and removed using the Harmonic scalpel. This was sent for frozen section evaluation and this was negative for malignancy. The wound was well irrigated and examined for hemostasis. 2 HELADIO drains were placed. 3-0 Vicryl sutures were placed in the subcutaneous tissue. 4-0 Monocryl sutures were placed in the subcuticular tissue. Steri-Strips were placed on each side. The breasts were marked with a short suture superiorly and long suture laterally for each side. The specimens were sent to pathology. The patient tolerated the procedure in stable condition. All instrument and sponge counts were correct at the end of the case.
[2020-07-30] MEDS ORDERED: diphenhydrAMINE 50 MG/ML 1 ML VIAL IVP ONE (15:23)
[2020-07-30] MEDS ORDERED: LABETALOL SYRINGE 5 MG/ML IVP ONE (15:38)
[2020-07-30] MEDS ORDERED: LABETALOL 5 MG/ML VIAL MDV IVP SCH (15:45)
[2020-07-30] MEDS ORDERED: GABAPENTIN 400 MG CAP PO PRN (17:09)
[2020-07-30] MEDS: SODIUM CHLORIDE 0.9% 1,000 ML IV SCH (17:28)
[2020-07-30] MEDS: HEPARIN SODIUM,PORCINE 5,000 UNIT/ML 1 ML VIAL SQ SCH (18:13)
[2020-07-30] MEDS ORDERED: ZOLPIDEM 5 MG TAB PO SCH (21:00)
[2020-07-31] MEDS ORDERED: ZOLPIDEM 5 MG TAB PO PRN (00:13)
[2020-07-31] MEDS: SODIUM CHLORIDE 0.9% 1,000 ML IV SCH ×2 (01:09→10:55)
[2020-07-31] MEDS: HEPARIN SODIUM,PORCINE 5,000 UNIT/ML 1 ML VIAL SQ SCH ×2 (01:14→10:01)
--- NOTE | 2020-07-31 03:47 | P.CONS ---
History of Present Illness - Reason for Consult Consult date: 07/30/20 medical management post op Requesting physician: Marguerite Nair - Chief Complaint scheduled for bialteral mastectomy - History of Present Illness 75 year old female with hypertension , afib on eliquis s/p ablation , history of CAD s/p CABG, she comes in for scheduled bilateral mastectomy due to recent diagnosis of right breast cancer. she tolerated procedure well, with no observed immediate complications, she is happy that pain is well tolerated and controlled, she is breathing comfortably denies any chest pain or fever, she tolerated PO intake . she has held her eliquis for 5 days in anticipation for surgery currently has no physical complaints, and requesting her night time medications to help her sleep patient denies any URI symptoms , denies any GI symptoms, denies any GI bleeding Review of Systems Pertinent positives as noted in HPI. All other systems were reviewed and are negative Past Medical History Past Medical History: Atrial Fibrillation, Coronary Artery Disease (CAD), Cancer, GERD/Reflux, Hyperlipidemia, Musculoskeletal Disorder, Osteoarthritis (OA), Supraventricular Tachycardia (SVT) Additional Past Medical History / Comment(s): breast ca, aortic valve replacement for aortic stenosis, hx migraine headaches, hx of low HBG, possible GI bleed, hx of kidney stone on xray, no tx for it. Has nerve stimulator rt side of back with remote control, neuropathy wil feet, insomnia History of Any Multi-Drug Resistant Organisms: None Reported Past Surgical History: Back Surgery, Breast Surgery, Cardiac Ablation, Coronary Bypass/CABG, Hysterectomy, Orthopedic Surgery Additional Past Surgical History / Comment(s): LEFT HAND SURGERY, BACK SURGERY X2, (laminectomy and fusion) coronary artery bypass surgery and aortic valve replacement 2016, and repair of a cardiac hole/defect, probably a PFO with a patch, EGD and colonoscopy, sx to remove "black spot on lip" benign, breast bx, wil cataracts Past Anesthesia/Blood Transfusion Reactions: Previous Problems w/ Anesthesia Additional Past Anesthesia/Blood Transfusion Reaction / Comm: after heart sx "had delirium for 3 days post op" (12 hr surgery, lots of pain and pain meds) states "very hard IV start" Past Psychological History: No Psychological Hx Reported Smoking Status: Former smoker Past Alcohol Use History: None Reported Additional Past Alcohol Use History / Comment(s): Quit smoking 1979,started smoking as a teenager. Smoked less than 1 PPD. Past Drug Use History: None Reported - Past Family History Mother Family Medical History: Cancer Additional Family Medical History / Comment(s): breast ca Father Family Medical History: Deep Vein Thrombosis (DVT) Additional Family Medical History / Comment(s): embolism, Medications and Allergies Home Medications Medication Instructions Recorded Confirmed Type Ibandronate Sodium 150 mg PO Q30D 09/19/18 07/30/20 History Omeprazole [PriLOSEC] 20 mg PO QAM 09/19/18 07/30/20 History Apixaban [Eliquis] 2.5 mg PO BID #30 tab 09/20/18 07/30/20 Rx Acetaminophen-Codeine 300-30mg 1 - 2 tab PO DAILY PRN 06/18/20 07/30/20 History [Tylenol w/codeine #3] Cholecalciferol [Vitamin D3 (25 2,000 unit PO QAM 06/18/20 07/30/20 History Mcg = 1000 Iu)] Furosemide [Lasix] 40 mg PO QAM PRN 06/18/20 07/30/20 History Gabapentin [Neurontin] 400 mg PO QID PRN 06/18/20 07/30/20 History Multivitamins, Thera [Multivitamin 1 tab PO QAM 06/18/20 07/30/20 History (formulary)] Potassium Chloride [Klor-Con 10] 10 meq PO QAM PRN 06/18/20 07/30/20 History Rosuvastatin [Crestor] 5 mg PO QAM 06/18/20 07/30/20 History Zolpidem Tartrate [Zolpidem 12.5 mg PO HS 06/18/20 07/30/20 History Tartrate ER] Calcium Carbonate [Calcium] 1,200 mg PO DAILY 07/26/20 07/30/20 History Cholecalciferol [Vitamin D3 (25 50 mcg PO DAILY 07/26/20 07/30/20 History Mcg = 1000 Iu)] Diltiazem HCl [Diltiazem HCl 24Hr 360 mg PO QAM 07/26/20 07/30/20 History ER] Vitamin B-12 1 oz PO QAM 07/26/20 07/30/20 History Allergies Allergy/AdvReac Type Severity Reaction Status Date / Time atenolol Allergy VERY LOW Verified 07/30/20 09:51 PULSE, LOW BLOOD PRESSURE Influenza Virus Vaccines AdvReac Severe Rapid Verified 07/30/20 09:51 Heart Rate sertraline [From Zoloft] AdvReac Mild bad dreams Verified 07/30/20 09:51 BETA BLOCKERS Allergy Intermediate LOW BLOOD Uncoded 07/30/20 09:51 PRESSURE,LOW HEART RATE Physical Exam Vitals: Vital Signs Temp Pulse Resp BP BP BP BP 07/31/20 02:00 98 F 66 16 153/73 07/30/20 19:25 68 18 159/68 07/30/20 18:25 82 18 174/75 07/30/20 17:55 75 18 171/74 07/30/20 17:25 85 18 175/73 07/30/20 17:10 73 18 164/61 07/30/20 16:55 79 18 173/76 07/30/20 16:40 98.7 F 80 18 157/81 07/30/20 15:59 67 16 148/77 07/30/20 15:43 61 14 154/76 07/30/20 15:33 197/83 07/30/20 15:30 83 16 159/71 07/30/20 15:15 86 14 150/68 07/30/20 15:00 84 16 147/66 07/30/20 14:50 97.0 F L 103 H 16 144/66 07/30/20 10:51 58 L 16 115/69 07/30/20 10:16 98.3 F 110 H 18 187/81 Pulse Ox 07/31/20 02:00 96 07/30/20 19:25 98 07/30/20 18:25 98 07/30/20 17:55 97 07/30/20 17:25 97 07/30/20 17:10 97 07/30/20 16:55 97 07/30/20 16:40 97 07/30/20 15:59 100 07/30/20 15:43 96 07/30/20 15:33 07/30/20 15:30 98 07/30/20 15:15 95 07/30/20 15:00 96 07/30/20 14:50 94 L 07/30/20 10:51 96 07/30/20 10:16 99 Intake and Output 07/30/20 07/30/20 07/31/20 14:59 22:59 06:59 Intake Total 1500 120 Output Total 25 375 260 Balance 6359 -448 -217 Intake: IV 1500 Oral 120 Output: Drainage 60 B 30 D 30 Urine 375 200 Estimated Blood Loss 25 Other: Voiding Method Toilet # Voids 1 Weight 67.4 kg 67.4 kg Constitutional: No acute distress, conversant, pleasant Eyes: Anicteric sclerae, moist conjunctiva, Pupils equal round reactive to light ENMT: NC/AT Oropharynx clear, no erythema, or exudates Neck: Supple, FROM, no masses, or JVD No carotid bruits No thyromegaly Lungs: Clear to auscultation Clear to percussion Normal respiratory effort, no accessory muscle use Cardiovascular: Heart regular in rate and rhythm, loud systolic murmur , no gallops, or rubs No peripheral edema Abdominal: Soft Nontender, no guarding, rebound or rigidity Abdomen moving with respiration Normoactive bowel sounds No hepatomegaly, No splenomegaly No palpable mass No abdominal wall hernia noted Skin: Normal temperature, tone, texture, turgor No induration No subcutaneous nodules No rash, lesions No ulcers Extremities: No digital cyanosis No clubbing Pedal pulses intact and symmetrical Radial pulses intact and symmetrical No calf tenderness Psychiatric: Alert and oriented to person, place and time Appropriate affect fair judgement Neuro Muscles Strength 4/5 in all 4 extremities Sensation to light touch grossly present throughout Cranial nerves II-XII grossly intact No focal sensory deficits Lymphatics: no palpable cervical or supraclavicular , or inguinal lymph nodes HELADIO drain in place post surgery Assessment and Plan Assessment: right breast cancer , s/p bilateral mastectomy POD zero management per surgery pain control and DVT ppx chronic conditions P. afib s/p ablation , eliquis on hold for surgery , resume when cleared by surgery hypertension , resume home meds GERD , on PPI PRN ambien for insomnia history of CAD s/p CABG HLD , resume statin follow up CBC, and CMP encourage to use incentive spirometry Thank you for allowing us to participate in the care of this patient. Do not hesitate to contact us with questions. Someone can be reached from the [facility] hospitalist group at all hours of the day at [phone].
[2020-07-31] MEDS ORDERED: LORazepam 2 MG/ML INJ IV STA (03:50)
[2020-07-31 05:15] LABS: Basophils % (A) 0 %; Eosinophils # (A) 0.1 k/uL (0-0.7); Eosinophils % (A) 0 %; HCT 34.8 % (34.0-46.0); HGB 11.9 gm/dL (11.4-16.0); Lymphocytes # (A) 1.7 k/uL (1.0-4.8); Lymphocytes % (A) 14 %; MCH 31.4 pg (25.0-35.0); MCHC 34.2 g/dL (31.0-37.0); MCV 91.8 fL (80.0-100.0); Mean Platelet Volume 7.7; Monocytes # (A) 0.6 k/uL (0-1.0); Monocytes % (A) 5 %; Neutrophils % (A) 81 %; Platelet Count 147 k/uL (150-450); RBC 3.79 m/uL (3.80-5.40); RDW 13.4 % (11.5-15.5); WBC 12.3 k/uL (3.8-10.6)
[2020-07-31 05:35] LABS: ALT 15 U/L (4-34); AST 28 U/L (14-36); African American GFR (CKD) >90 (>60 ml/min/1.73 sqM); Albumin 3.6 g/dL (3.5-5.0); Alkaline Phosphatase 72 U/L (38-126); Anion Gap 5 mmol/L; Blood Urea Nitrogen 14 mg/dL (7-17); Calcium 8.7 mg/dL (8.4-10.2); Carbon Dioxide 27 mmol/L (22-30); Chloride 105 mmol/L (98-107); Glucose 142 mg/dL (74-99); Non-African American GFR(CKD) 85 (>60 ml/min/1.73 sqM); Sodium 137 mmol/L (137-145); Total Bilirubin 0.4 mg/dL (0.2-1.3); Total Protein 6.6 g/dL (6.3-8.2)
[2020-07-31] MEDS ORDERED: PANTOPRAZOLE 40 MG TABLET PO SCH (07:30)
--- NOTE | 2020-07-31 08:35 | P.PN ---
Subjective Progress Note Date: 07/31/20 Principal diagnosis: right breast stage 1A invasive lobular cancer, postop day #1 bilateral mastectomy with sentinel node biopsy Patient is a 75-year-old white female postop day #1 bilateral mastectomy and right sentinel node biopsy. Postoperatively she is doing well without complaints. Her pain is well-controlled. She is tolerating her diet without difficulty. Her HELADIO output bilateral is serous in nature. Hemoglobin 11.9. She was seen in consultation by medicine follow-up CBC and CMP recommended and encouraged to use incentive spirometry Objective - Vital Signs Vital signs: Vital Signs Temp 98 F 07/31/20 02:00 Pulse 66 07/31/20 02:00 Resp 16 07/31/20 02:00 BP 153/73 07/31/20 02:00 Pulse Ox 96 07/31/20 02:00 Intake & Output 07/30/20 07/31/20 07/31/20 18:59 06:59 18:59 Intake Total 1620 Output Total 400 260 Balance 1220 -260 Weight 67.4 kg Intake: IV 1500 Oral 120 Output: Drainage 60 B 30 D 30 Urine 375 200 Estimated Blood Loss 25 Other: Voiding Method Toilet Toilet # Voids 1 - Constitutional General appearance: Present: average body habitus - EENT Eyes: Present: EOMI ENT: Present: hearing grossly normal - Neck Neck: Present: normal ROM - Respiratory Respiratory: bilateral: CTA - Cardiovascular Heart sounds: normal: S1, S2 - Integumentary Integumentary Comment(s): Incisions clean and dry bilateral No evidence of infection or hematoma HELADIO drainage 30 mL from each side serous in nature for a total of 60 mL documented, two of the HELADIO drains have minimal output - Labs CBC & Chem 7: 07/31/20 04:34 07/31/20 04:34 Labs: Abnormal Lab Results - Last 24 Hours (Table) 07/31/20 07/31/20 Range/Units 04:34 04:34 WBC 12.3 H (3.8-10.6) k/uL RBC 3.79 L (3.80-5.40) m/uL Plt Count 147 L (150-450) k/uL Neutrophils # 10.0 H (1.3-7.7) k/uL Glucose 142 H (74-99) mg/dL Assessment and Plan Assessment: Impression: 1. Stage IA right breast invasive lobular carcinoma 2. Mastodynia left breast/chest wall CAT scan was negative 3. Atrial fibrillation 4. Patient on anticoagulation 5. Congenital heart defect 6. Postop day #1 bilateral mastectomy with right sentinel node biopsy patient doing well Plan: 1. Dressing changed at bedside 2. Patient ready for discharge if okay with medicine and cardiology 3. Teach patient drain care 4. Home health care to help with dressing change and drain care
--- NOTE | 2020-07-31 08:40 | P.DS ---
Providers Date of admission: 07-30-20 Expected date of discharge: 07/31/20 Attending physician: Marguerite Nair Consults: 07/30/20 14:47 Consult Physician Routine Consulting Provider: Luke Mullen Consult Reason/Comments: cardiac managment Do you want consulting provider notified?: Yes 07/31/20 07:28 Consult Physician Routine Consulting Provider: Antonio Mcelroy Consult Reason/Comments: med management Do you want consulting provider notified?: Yes Primary care physician: [place] Hospital Course: Patient is a 75-year-old white female status post bilateral mastectomy and right sentinel node biopsy. She is postop day #1. She has done well with no complaints. She is seen postoperatively by medicine and will be seen by cardiology prior to discharge. She is followed by cardiology and has been on eliquis preoperatively and this will be started as per cardiology and surgery postoperatively. Procedures: Bilateral mastectomy with right sentinel node biopsy Plan - Discharge Summary Discharge Rx Participant: No New Discharge Prescriptions: No Action Omeprazole [PriLOSEC] 20 mg PO QAM Ibandronate Sodium 150 mg PO Q30D Apixaban [Eliquis] 2.5 mg PO BID #30 tab Rosuvastatin [Crestor] 5 mg PO QAM Acetaminophen-Codeine 300-30mg [Tylenol w/codeine #3] 1 - 2 tab PO DAILY PRN PRN Reason: Pain Furosemide [Lasix] 40 mg PO QAM PRN PRN Reason: Edema Potassium Chloride [Klor-Con 10] 10 meq PO QAM PRN PRN Reason: Hypokalemia Multivitamins, Thera [Multivitamin (formulary)] 1 tab PO QAM Cholecalciferol [Vitamin D3 (25 Mcg = 1000 Iu)] 2,000 unit PO QAM Gabapentin [Neurontin] 400 mg PO QID PRN PRN Reason: Pain Zolpidem Tartrate [Zolpidem Tartrate ER] 12.5 mg PO HS Cholecalciferol [Vitamin D3 (25 Mcg = 1000 Iu)] 50 mcg PO DAILY Calcium Carbonate [Calcium] 1,200 mg PO DAILY Diltiazem HCl [Diltiazem HCl 24Hr ER] 360 mg PO QAM Vitamin B-12 1 oz PO QAM Discharge Medication List Ibandronate Sodium 150 mg PO Q30D 09/19/18 [History] Omeprazole [PriLOSEC] 20 mg PO QAM 09/19/18 [History] Apixaban [Eliquis] 2.5 mg PO BID #30 tab 09/20/18 [Rx] Acetaminophen-Codeine 300-30mg [Tylenol w/codeine #3] 1 - 2 tab PO DAILY PRN 06/18/20 [History] Cholecalciferol [Vitamin D3 (25 Mcg = 1000 Iu)] 2,000 unit PO QAM 06/18/20 [History] Furosemide [Lasix] 40 mg PO QAM PRN 06/18/20 [History] Gabapentin [Neurontin] 400 mg PO QID PRN 06/18/20 [History] Multivitamins, Thera [Multivitamin (formulary)] 1 tab PO QAM 06/18/20 [History] Potassium Chloride [Klor-Con 10] 10 meq PO QAM PRN 06/18/20 [History] Rosuvastatin [Crestor] 5 mg PO QAM 06/18/20 [History] Zolpidem Tartrate [Zolpidem Tartrate ER] 12.5 mg PO HS 06/18/20 [History] Calcium Carbonate [Calcium] 1,200 mg PO DAILY 07/26/20 [History] Cholecalciferol [Vitamin D3 (25 Mcg = 1000 Iu)] 50 mcg PO DAILY 07/26/20 [History] Diltiazem HCl [Diltiazem HCl 24Hr ER] 360 mg PO QAM 07/26/20 [History] Vitamin B-12 1 oz PO QAM 07/26/20 [History] Follow up Appointment(s)/Referral(s): Marguerite Nair MD [STAFF PHYSICIAN] - 1 Week Activity/Diet/Wound Care/Special Instructions: teach patient drain care, drain and record HELADIO output twice a day and as needed Dressing change daily Do not drive until seen by Dr. Montgomery Patient may shower after 48 hours Discharge Disposition: HOME WITH HOME HEALTH SERVICES
[2020-07-31] MEDS ORDERED: MULTIVITAMINS, THERA 1 EACH TAB PO SCH (09:00)
[2020-07-31] MEDS ORDERED: ATORVASTATIN 10 MG TAB PO SCH (09:00)
[2020-07-31] MEDS ORDERED: DILTIAZEM CD 180 MG CAP.ER.24H PO SCH (09:00)
[2020-07-31 09:07] VITALS: RESP 20; TEMP 98.3
--- NOTE | 2020-07-31 09:59 | P.CRDCN ---
History of Present Illness Consult date: 07/31/20 History of present illness: CHIEF COMPLAINT: Cardiac management HISTORY OF PRESENT ILLNESS: This is a 75-year-old female with a past medical history significant for atrial fibrillation with previous ablations, closure of atrial septal defect, coronary artery disease with previous CABG with HARPER to LAD and aortic valve replacement secondary to bicuspid aortic valve, GERD, hyperlipidemia, and former nicotine dependence. Patient follows in the office with Dr. Mullen. We have been asked to see the patient in consultation for cardiac management. Patient is status post bilateral mastectomy secondary to right breast carcinoma with Dr. Nair. Postop day #1. Patient examined this morning at the bedside. Patient reports chest discomfort secondary to surgery but states she has not been having any chest pain prior to her surgical intervention. She denies shortness of breath. Denies dizziness or lightheadedness. Vital signs stable. She is on room air with oxygen saturations greater than 92%. DIAGNOSTICS: Laboratory data: WBC 12.3. Hemoglobin 11.9. Platelet count 147. Sodium 137. Potassium 4.0. B UN 14. Creatinine 0.67. Current home cardiac medications include Crestor 5 mg daily, Lasix 40 mg daily as needed, diltiazem ER 360 mg daily, Eliquis 2.5 mg twice a day Echocardiogram completed in 2019 revealed ejection fraction 60-65%, mild stenosis of bioprosthetic aortic valve, trace mitral regurgitation, mild tricuspid regurgitation REVIEW OF SYSTEMS: At the time of my exam: CONSTITUTIONAL: Denies fever or chills. HEENT: Denies blurred vision, vision changes, or eye pain. Denies hemoptysis CARDIOVASCULAR: Denies chest pain, orthopnea, PND or palpitations RESPIRATORY: No shortness of breath. GASTROINTESTINAL: Denies abdominal pain. Denies nausea or vomiting. HEMATOLOGIC: Denies bleeding disorders. GENITOURINARY: Denies any blood in urine. SKIN: Denies pruitis. Denies rash. PHYSICAL EXAM: VITAL SIGNS: Reviewed. GENERAL: Well-developed in no acute distress. HEENT: Head is normocephalic. Pupils are equal, round. Sclerae anicteric. Mucous membranes of the mouth are moist. Neck supple. No JVD or thyromegaly LUNGS: Respirations even and unlabored. Lungs essentially clear to auscultation bilaterally. HEART: Regular rate and rhythm. S1 and S2 heard. Systolic murmur noted. Dressing noted to chest clean dry intact. Bilateral HELADIO drains with evidence of old blood. ABDOMEN: Soft. Nondistended. Nontender. EXTREMITIES: Normal range of motion. No clubbing or cyanosis. Peripheral pulses intact. No lower extremity edema NEUROLOGIC: Awake and alert. Oriented x 3. ASSESSMENT: Right breast cancer, status post bilateral mastectomy Paroxysmal atrial fibrillation, on anticoagulation with Eliquis History of cardiac ablations History of closure of atrial septal defect Coronary artery disease with previous CABG 1, HARPER to LAD History of aortic valve replacement secondary to bicuspid aortic valve Hyperlipidemia GERD Former nicotine dependence PLAN: Patient is stable for discharge from a cardiac perspective. She is to resume all of her previous cardiac medications. Patient instructed to hold her Eliquis for today and resume it tomorrow morning. This was discussed with Dr. Ulises Haley at the bedside as well. She is to follow up outpatient with Dr. Mullen. Nurse practitioner note has been reviewed by physician. Signing provider agrees with the documented findings, assessment, and plan of care. Past Medical History Past Medical History: Atrial Fibrillation, Coronary Artery Disease (CAD), Cancer, GERD/Reflux, Hyperlipidemia, Musculoskeletal Disorder, Osteoarthritis (OA), Supraventricular Tachycardia (SVT) Additional Past Medical History / Comment(s): breast ca, aortic valve replacement for aortic stenosis, hx migraine headaches, hx of low HBG, possible GI bleed, hx of kidney stone on xray, no tx for it. Has nerve stimulator rt side of back with remote control, neuropathy wil feet, insomnia History of Any Multi-Drug Resistant Organisms: None Reported Past Surgical History: Back Surgery, Breast Surgery, Cardiac Ablation, Coronary Bypass/CABG, Hysterectomy, Orthopedic Surgery Additional Past Surgical History / Comment(s): LEFT HAND SURGERY, BACK SURGERY X2, (laminectomy and fusion) coronary artery bypass surgery and aortic valve replacement 2016, and repair of a cardiac hole/defect, probably a PFO with a patch, EGD and colonoscopy, sx to remove "black spot on lip" benign, breast bx, wil cataracts Past Anesthesia/Blood Transfusion Reactions: Previous Problems w/ Anesthesia Additional Past Anesthesia/Blood Transfusion Reaction / Comment(s): after heart sx "had delirium for 3 days post op" (12 hr surgery, lots of pain and pain med s) states "very hard IV start" Past Psychological History: No Psychological Hx Reported Smoking Status: Former smoker Past Alcohol Use History: None Reported Additional Past Alcohol Use History / Comment(s): Quit smoking 1979,started smoking as a teenager. Smoked less than 1 PPD. Past Drug Use History: None Reported - Past Family History Mother Family Medical History: Cancer Additional Family Medical History / Comment(s): breast ca Father Family Medical History: Deep Vein Thrombosis (DVT) Additional Family Medical History / Comment(s): embolism, Medications and Allergies Home Medications Medication Instructions Recorded Confirmed Type Ibandronate Sodium 150 mg PO Q30D 09/19/18 07/30/20 History Omeprazole [PriLOSEC] 20 mg PO QAM 09/19/18 07/30/20 History Apixaban [Eliquis] 2.5 mg PO BID #30 tab 09/20/18 07/30/20 Rx Acetaminophen-Codeine 300-30mg 1 - 2 tab PO DAILY PRN 06/18/20 07/30/20 History [Tylenol w/codeine #3] Cholecalciferol [Vitamin D3 (25 2,000 unit PO QAM 06/18/20 07/30/20 History Mcg = 1000 Iu)] Furosemide [Lasix] 40 mg PO QAM PRN 06/18/20 07/30/20 History Gabapentin [Neurontin] 400 mg PO QID PRN 06/18/20 07/30/20 History Multivitamins, Thera [Multivitamin 1 tab PO QAM 06/18/20 07/30/20 History (formulary)] Potassium Chloride [Klor-Con 10] 10 meq PO QAM PRN 06/18/20 07/30/20 History Rosuvastatin [Crestor] 5 mg PO QAM 06/18/20 07/30/20 History Zolpidem Tartrate [Zolpidem 12.5 mg PO HS 06/18/20 07/30/20 History Tartrate ER] Calcium Carbonate [Calcium] 1,200 mg PO DAILY 07/26/20 07/30/20 History Cholecalciferol [Vitamin D3 (25 50 mcg PO DAILY 07/26/20 07/30/20 History Mcg = 1000 Iu)] Diltiazem HCl [Diltiazem HCl 24Hr 360 mg PO QAM 07/26/20 07/30/20 History ER] Vitamin B-12 1 oz PO QAM 07/26/20 07/30/20 History Allergies Allergy/AdvReac Type Severity Reaction Status Date / Time atenolol Allergy VERY LOW Verified 07/30/20 09:51 PULSE, LOW BLOOD PRESSURE Influenza Virus Vaccines AdvReac Severe Rapid Verified 07/30/20 09:51 Heart Rate sertraline [From Zoloft] AdvReac Mild bad dreams Verified 07/30/20 09:51 BETA BLOCKERS Allergy Intermediate LOW BLOOD Uncoded 07/30/20 09:51 PRESSURE,LOW HEART RATE Physical Exam Vitals: Vital Signs Temp Pulse Resp BP BP BP BP 07/31/20 08:36 98.3 F 59 L 20 07/31/20 02:00 98 F 66 16 153/73 07/30/20 19:25 68 18 159/68 07/30/20 18:25 82 18 174/75 07/30/20 17:55 75 18 171/74 07/30/20 17:25 85 18 175/73 07/30/20 17:10 73 18 164/61 07/30/20 16:55 79 18 173/76 07/30/20 16:40 98.7 F 80 18 157/81 07/30/20 15:59 67 16 148/77 07/30/20 15:43 61 14 154/76 07/30/20 15:33 197/83 07/30/20 15:30 83 16 159/71 07/30/20 15:15 86 14 150/68 07/30/20 15:00 84 16 147/66 07/30/20 14:50 97.0 F L 103 H 16 144/66 07/30/20 10:51 58 L 16 115/69 07/30/20 10:16 98.3 F 110 H 18 187/81 Pulse Ox 07/31/20 08:36 96 07/31/20 02:00 96 07/30/20 19:25 98 07/30/20 18:25 98 07/30/20 17:55 97 07/30/20 17:25 97 07/30/20 17:10 97 07/30/20 16:55 97 07/30/20 16:40 97 07/30/20 15:59 100 07/30/20 15:43 96 07/30/20 15:33 07/30/20 15:30 98 07/30/20 15:15 95 07/30/20 15:00 96 07/30/20 14:50 94 L 07/30/20 10:51 96 07/30/20 10:16 99 Intake and Output 07/30/20 07/31/20 07/31/20 22:59 06:59 14:59 Intake Total 120 540 Output Total 375 260 Balance -255 -260 540 Intake: Oral 120 540 Output: Drainage 60 B 30 D 30 Urine 375 200 Other: Voiding Method Toilet # Voids 1 1 Weight 67.4 kg Results 07/31/20 04:34 07/31/20 04:34 Cardiac Enzymes 07/31/20 Range/Units 04:34 AST 28 (14-36) U/L CBC 07/31/20 Range/Units 04:34 WBC 12.3 H (3.8-10.6) k/uL RBC 3.79 L (3.80-5.40) m/uL Hgb 11.9 (11.4-16.0) gm/dL Hct 34.8 (34.0-46.0) % Plt Count 147 L (150-450) k/uL Comprehensive Metabolic Panel 07/31/20 Range/Units 04:34 Sodium 137 (137-145) mmol/L Potassium 4.0 (3.5-5.1) mmol/L Chloride 105 (98-107) mmol/L Carbon Dioxide 27 (22-30) mmol/L BUN 14 (7-17) mg/dL Creatinine 0.67 (0.52-1.04) mg/dL Glucose 142 H (74-99) mg/dL Calcium 8.7 (8.4-10.2) mg/dL AST 28 (14-36) U/L ALT 15 (4-34) U/L Alkaline Phosphatase 72 (38-126) U/L Total Protein 6.6 (6.3-8.2) g/dL Albumin 3.6 (3.5-5.0) g/dL Current Medications Generic Name Dose Route Start Last Admin Trade Name Freq PRN Reason Stop Dose Admin Hydrocodone Bitart/Acetaminophen 1 each 07/30/20 14:41 07/30/20 23:28 Hydrocodone/Apap 5-325mg 1 Each Tab PO 08/29/20 14:42 1 each Q4HR PRN Administration Moderate Pain Atorvastatin Calcium 10 mg 07/31/20 09:00 Atorvastatin 10 Mg Tab PO QAM RAYMON Diltiazem HCl 360 mg 07/31/20 09:00 Diltiazem Cd 180 Mg Cap.Er.24h PO QAM RAYMON Gabapentin 400 mg 07/30/20 17:09 Gabapentin 400 Mg Cap PO QID PRN Pain Heparin Sodium (Porcine) 5,000 unit 07/30/20 18:00 07/31/20 01:14 Heparin Sodium,Porcine 5,000 Unit/Ml 1 Ml Vial SQ 08/29/20 18:01 5,000 unit Q8H RAYMON Administration Hydromorphone HCl 1 mg 07/30/20 14:41 07/31/20 00:06 Hydromorphone 1 Mg/Ml 1 Ml Syringe IVP 08/29/20 14:42 1 mg Q3HR PRN Administration Severe Pain Sodium Chloride 1,000 mls @ 100 mls/hr 07/30/20 14:45 07/31/20 01:09 Saline 0.9% IV 08/29/20 14:46 100 mls/hr .Q10H RAYMON Administration Cefazolin Sodium 1,000 mg/ 50 mls @ 100 mls/hr 07/30/20 20:00 07/31/20 04:34 Sodium Chloride IVPB 100 mls/hr Q8H RAYMON Administration Lidocaine HCl 0.1 ml 07/30/20 05:48 07/30/20 10:19 Lidocaine 1% (10mg/Ml) For Iv Start INTRADERMA 08/29/20 05:49 0.1 ml PER PROTOCOL PRN Administration IV Start Multivitamins 1 each 07/31/20 09:00 Multivitamins, Thera 1 Each Tab PO QAM RAYMON Naloxone HCl 0.2 mg 07/30/20 14:41 Naloxone 0.4 Mg/Ml 1 Ml Vial IV 08/29/20 14:42 Q2M PRN Opioid Reversal Ondansetron HCl 4 mg 07/30/20 14:41 Ondansetron 4 Mg/2 Ml Vial IVP 08/29/20 14:42 Q8HR PRN Nausea And Vomiting Pantoprazole Sodium 40 mg 07/31/20 07:30 07/31/20 06:35 Pantoprazole 40 Mg Tablet PO 40 mg [id number] RAYMON Administration Zolpidem Tartrate 5 mg 07/30/20 21:00 07/30/20 21:14 Zolpidem 5 Mg Tab PO 5 mg HS RAYMON Administration Zolpidem Tartrate 7.5 mg 07/31/20 00:13 07/31/20 01:08 Zolpidem 5 Mg Tab PO 08/01/20 00:00 7.5 mg ONCE PRN Administration Insomnia Intake and Output 07/30/20 07/31/20 07/31/20 22:59 06:59 14:59 Intake Total 120 540 Output Total 375 260 Balance -255 -260 540 Intake: Oral 120 540 Output: Drainage 60 B 30 D 30 Urine 375 200 Other: Voiding Method Toilet # Voids 1 1 Weight 67.4 kg 07/31/20 04:34 07/31/20 04:34
[2020-07-31 10:03] VITALS: BP 173/80; PULSE 76
--- NOTE | 2020-07-31 11:36 | P.PN ---
Subjective Progress Note Date: 07/31/20 Principal diagnosis: Bilateral mastectomy secondary to right breast carcinoma Hospital course: Patient is a 75-year-old female with a past medical history of CAD with CABG HARPER to LAD, atrial fibrillation on Eliquis status post ablation, hyperlipidemia, and right breast carcinoma. Patient is status post a double m astectomy completed yesterday by Dr. Georgiana Nair for right-sided breast carcinoma with sentinel node biopsy. We have been asked to see the patient for consultation for medical management. Today is postoperative day 1, patient was seen and fully evaluated at the bedside. She reports feeling great this morning. She is ambulatory in her room without difficulties. Surgical dressing was just changed and is intact with no signs of seepage. HELADIO drains x [address] with serosanguineous fluid in collection chambers. Pt reports experiencing mild post-operative pain worse with movement, but states it is currently controlled. Pt denies any dizzines, lightheadedness, nausea/vomiting, chest pain /palpitations, shortness of breath, dyspnea with exertion, or experiencing any swelling/numbness/weakness/tingling in extremities. Patient discharged by primary surgical team this morning and after evaluation, pt is stable and medically cleared for discharge at this time. Physical exam: General: non toxic, no distress, appears at stated age Derm: Skin is warm and dry with pink undertones. Surgical incision reported to be intact and closed with sutures and Steri-Strips. Postsurgical Dressing just changed and currently intact with no signs of seepage. [address] with serosanguineous fluid in collection chambers. Head: Atraumatic, normocephalic, symmetric Eyes: no lid lag, anicteric sclera Mouth: no lip lesion, mucus membranes moist Cardiovascular: Regular rate and rhythm, positive murmur. Positive posterior tibial pulses bilaterally, cap refill < 2 seconds. Lungs: Respirations even, regular, and unlabored on room air. Lungs CTA bilaterally, no rhonchi, no rales, no wheezes no accessory muscle useage. Abdominal: soft, nontender to palpation, no guarding, no appreciable organomegaly Ext: no gross muscle atrophy, no edema, no contractures Neuro: CN II-XI grossly intact, no focal neuro deficits Psych: Alert, oriented, appropriate affect Assessment and Plan of Care: Status post Bilateral mastectomy secondary to right breast carcinoma -Dressing changes, wound care and drain management as per primary surgical team. -Pain management per primary surgical team. -DVT prophylaxis per primary surgical team. -Follow up with PCP, oncology, and Gen. surgery as directed upon discharge. Insomnia -Continue daily medication regimen with Ambien 12.5 mg nightly. GERD -Continue daily omeprazole 20 mg each morning. Chronic conditions: CAD with CABG, Atrial fibrillation, and hyperlipidemia. -Per cardiology, resume Eliquis on 08/01/20. -Patient to continue her simvastatin, Lasix, and Cardizem as prescribed. -Continue to follow up outpatient as scheduled with cardiology. Discussed with: Patient and RN Anticipated discharge date: today Anticipated discharge place: Home with home care A total of 35 minutes was spent on the care of this complex patient more than 50% of the time was spent in counseling and care coordination. Thank you for allowing us to participate in the care of this pleasant patient. Someone can be reached from the [facility] hospitalist group all hours of the day at [phone] or via [facility]. Objective - Vital Signs Vital signs: Vital Signs Temp 98.3 F 07/31/20 08:36 Pulse 76 07/31/20 10:02 Resp 20 07/31/20 08:36 BP 173/80 07/31/20 10:02 Pulse Ox 96 07/31/20 08:36 Intake & Output 07/30/20 07/31/20 07/31/20 18:59 06:59 18:59 Intake Total 1620 540 Output Total 400 260 Balance 1220 -260 540 Weight 67.4 kg Intake: IV 1500 Oral 120 540 Output: Drainage 60 B 30 D 30 Urine 375 200 Estimated Blood Loss 25 Other: Voiding Method Toilet Toilet # Voids 1 1 - Labs CBC & Chem 7: 07/31/20 04:34 07/31/20 04:34 Labs: Abnormal Lab Results - Last 24 Hours (Table) 07/31/20 07/31/20 Range/Units 04:34 04:34 WBC 12.3 H (3.8-10.6) k/uL RBC 3.79 L (3.80-5.40) m/uL Plt Count 147 L (150-450) k/uL Neutrophils # 10.0 H (1.3-7.7) k/uL Glucose 142 H (74-99) mg/dL
== END 2020-07-31 11:33 | disposition home health service (06) ==
LOC: OR 09:19 → 6PED 14:50 → OR 07-31 11:33
PROVIDERS: ATTEND Surgery
DX: C50.911 Malignant neoplasm of unspecified site of right female breast (principal); Z98.890 Other specified postprocedural states; N64.4 Mastodynia; I48.0 Paroxysmal atrial fibrillation; I25.10 Atherosclerotic heart disease of native coronary artery without angina pectoris; Z95.1 Presence of aortocoronary bypass graft; Z95.2 Presence of prosthetic heart valve; K21.9 Gastro-esophageal reflux disease without esophagitis; E78.5 Hyperlipidemia, unspecified; G62.9 Polyneuropathy, unspecified; E87.6 Hypokalemia; I10 Essential (primary) hypertension; R60.0 Localized edema; G47.00 Insomnia, unspecified; M19.90 Unspecified osteoarthritis, unspecified site; Z87.891 Personal history of nicotine dependence; I47.1 Supraventricular tachycardia; G43.909 Migraine, unspecified, not intractable, without status migrainosus; Z96.82 Presence of neurostimulator; Z87.442 Personal history of urinary calculi; Z90.710 Acquired absence of both cervix and uterus; Z98.1 Arthrodesis status; Z98.42 Cataract extraction status, left eye; Z98.41 Cataract extraction status, right eye; Z80.3 Family history of malignant neoplasm of breast; Z82.49 Family history of ischemic heart disease and other diseases of the circulatory system; Z97.2 Presence of dental prosthetic device (complete) (partial); Z79.01 Long term (current) use of anticoagulants; Z79.891 Long term (current) use of opiate analgesic; Z79.899 Other long term (current) drug therapy; Z88.7 Allergy status to serum and vaccine; Z88.8 Allergy status to other drugs, medicaments and biological substances
CPT/HCPCS: 80053; 85025; 38792; 19303; 38525; A9520; J2250; J1200; J1644 ×2; J1100; J2405; J0690 ×2; J1170 ×2

== ENCOUNTER → 2020-08-09 | Outpatient (CLI) | payer MEDICARE ==
[2020-08-09 13:26] VITALS: BP 132/76; PULSE 69; RESP 16; TEMP 97.8
--- NOTE | 2020-08-09 13:48 | P.PN ---
Progress Note - Text Progress Note Date: 08/09/20 Lakesha is a 75-year-old white female status post bilateral mastectomy and sentinel node biopsy. The patient's left breast simple mastectomy was benign the patient's right breast simple mastectomy had a 1.8 cm invasive lobular carcinoma. There was multifocal lobular carcinoma present. All margins were negative. The uninvolved breast focal atypical ductal hyperplasia and focal flat epithelial atypia. The closest margin to the cancer was the posterior margins and it was 5 mm. The patient is doing well postoperative with no complaints. HELADIO drains: drain A: No output drain B: < 20 cc/day drain C: no drainage drain D: < 20 cc/day Physical Exam: Lungs: Clear Heart: S1 and S2, systolic ejection murmur Incisions bilateral clean and dry no evidence of infection or seroma Impression: Patient status post bilateral mastectomy with sentinel node biopsy on the right Patient doing well at this time she will follow with medical oncology she will follow here in 3 months Cc:
== END | disposition home or self-care (01) ==
LOC: WWCWWP 13:01
PROVIDERS: ATTEND Surgery
DX: Z53.9 Procedure and treatment not carried out, unspecified reason (principal)

== ENCOUNTER → 2020-11-07 | Outpatient (CLI) | payer MEDICARE ==
[2020-11-07 12:52] VITALS: BP 135/74; PULSE 67; RESP 16; TEMP 97.9
--- NOTE | 2020-11-07 13:23 | P.PN ---
Subjective Progress Note Date: 11/07/20 Principal diagnosis: bilateral mastectomy, right breast invasive lobular cancer Lakesha is a 75-year-old white female status post bilateral mastectomy and sentinel node biopsy. The patient's left breast simple mastectomy was benign in the right breast simple mastectomy had a 1.8 cm invasive lobular carcinoma. This was multifocal lobular carcinoma. All margins were negative. The uninvolved breast had focal atypical ductal hyperplasia. The patient is doing well at this time with no complaints. She is presently on an aromatase inhibitor, letrazole as per medical oncology. She is not having any problems related to this. She did not have any radiation therapy. She is going to have her bone density closely followed as per medical oncology. She had an oncotype test done and was told she did not need chemotherapy. Family History Mother of breast cancer when patient was 1 Brother colon cancer Hormonal history: Menarche: 14 , breast fed positive First. H 20 Menopause in her 40s, hysterectomy at 23 was removed was left Control pills approximately 5 years Medical history: 1. Congenital heart defect Aortic stenosis Reflux High cholesterol Surgical history: Congenital heart defect patch 2016 repair aortic valve Back surgery 2 4 cardiac ablations for atrial fib Social history: Smokes stopped 40 years ago Alcohol: Social not now Drugs: Negative - Constitutional Constitutional: Denies chills, Denies fever - EENT Eyes: denies blurred vision, denies pain Ears: bilateral: decreased hearing, deny: tinnitus Ears, nose, mouth and throat: Reports headache, Denies sore throat - Breasts Breasts: bilateral: as per HPI - Cardiovascular Cardiovascular: Reports as per HPI - Respiratory Respiratory: Denies cough - Gastrointestinal Gastrointestinal: Denies abdominal pain, Denies diarrhea, Denies nausea, Denies vomiting - Genitourinary (Female) Comment: kidney stones seen on x ray in past but not treated Genitourinary: Reports kidney stones, Denies dysuria, Denies hematuria - Menstruation Menstruation: Reports post hysterectomy - Musculoskeletal Comment: Osteoarthritis, osteoporosis Musculoskeletal: Reports leg numbness/tingling - Integumentary Integumentary: Reports pruritus, Denies rash - Neurological Neurological: Reports numbness, Reports weakness - Psychiatric Psychiatric: Reports anxiety, Reports depression - Endocrine Endocrine: Reports weight change - Hematologic/Lymphatic Comment: on eliquis Hematologic/Lymphatic: Reports as per HPI - Allergic/Immunologic Allergic/Immunologic: Reports as per HPI Objective - Vital Signs Vital signs: Vital Signs Temp 97.9 F 11/07/20 12:48 Pulse 67 11/07/20 12:48 Resp 16 11/07/20 12:48 BP 135/74 11/07/20 12:48 Pulse Ox 97 11/07/20 12:48 Intake & Output 11/06/20 11/07/20 11/07/20 18:59 06:59 18:59 Weight 63.503 kg - Exam BMI 26.9 - Constitutional General appearance: Present: average body habitus - EENT Eyes: Present: EOMI ENT: Present: hearing grossly normal - Respiratory Respiratory: bilateral: CTA - Cardiovascular Rhythm: regular Heart sounds: normal: S1, S2 Abnormal Heart Sounds: Present: systolic murmur - Integumentary Integumentary: Present: normal turgor - Musculoskeletal Musculoskeletal: Present: gait normal - Psychiatric Psychiatric: Present: A&O x's 3, appropriate affect, intact judgment & insight - Additional findings Additional findings: Chest wall: Bilateral incisions clean and dry no evidence of any recurrent disease or tumor on the chest wall Right axilla: No adenopathy of concern Left axilla: No adenopathy of concern Assessment and Plan Assessment: Impression: Congenital heart defect Aortic stenosis Reflux High cholesterol Right breast invasive lobular carcinoma/1.8 cm in greatest size, patient also had multifocal lobular carcinoma in situ No evidence of recurrent cancer Patient on an aromatase inhibitor Follow-up bone density as per medical oncology Plan: 1. Follow-up in 4 months for surveillance 2. Continue to follow with medical oncology 2. Follow up sooner if any questions or concerns Time 20 minutes, time spent physical examination, reviewing medical records, and counseling. Cc: Dr. Steiner, Dr. Graff
== END ==
LOC: WWCWWP 12:31
PROVIDERS: ATTEND Surgery
DX: C50.911 Malignant neoplasm of unspecified site of right female breast (principal); Q21.8 Other congenital malformations of cardiac septa; I35.0 Nonrheumatic aortic (valve) stenosis; K21.9 Gastro-esophageal reflux disease without esophagitis; E78.00 Pure hypercholesterolemia, unspecified; Z79.811 Long term (current) use of aromatase inhibitors; Z87.891 Personal history of nicotine dependence

== ENCOUNTER 2021-03-14 11:49 | Emergency (ER) | payer MEDICARE ==
--- NOTE | 2021-03-14 12:13 | ED ---
General Adult HPI - General Source: patient, RN notes reviewed Mode of arrival: ambulatory Limitations: no limitations <Luis Carlos Luu - Last Filed: 03/14/21 12:12> <Lacie Hinkle - Last Filed: 03/14/21 14:27> - General Stated complaint: High HR Time Seen by Provider: 03/14/21 12:12 - History of Present Illness Initial comments: This a 76-year-old female presents emergency Department chief complaint of high heart rate. Patient was sent in by Dr. Ulises Haley today after she was found to have a heart rate elevated in the 130s. Patient's does have a history of A. fib and is on Eliquis currently. Patient states she's felt symptoms since yesterday. Denies any chest pain denies any abdominal pain no leg swelling no leg pain (Luis Carlos Luu) The patient is a 76-year-old female that presents to the emergency department from Dr. Naik office for rapid heart rate. She has had a double mastecomy and was in the office for routine follow-up when they took her vital signs and her heart rate was elevated. She has a history of A. fib on Eliquis and Cardizem. She has had 2 ablations - last of which was possibly a decade ago. States she takes her medications as directed but continues to have episodes once per month of palpiations. She sees Dr. Mullen. Begin having palpitations yesterday morning. States that this is the longest her palpitations have lasted. She has felt wildly dizzy. Denies any chest pain. Patient also history of replacement and single coronary bypass. No recent illnesses. No medication changes. States she normally does not come in for an episode like this but Dr. Ulises haley made her. No other alleviating, precipitating or modifying factors (Lacie Hinkle) - Related Data Home Medications Medication Instructions Recorded Confirmed Ibandronate Sodium 150 mg PO Q30D 09/19/18 03/14/21 Omeprazole [PriLOSEC] 20 mg PO DAILY 09/19/18 03/14/21 Cholecalciferol [Vitamin D3 (25 2,000 unit PO DAILY 06/18/20 03/14/21 Mcg = 1000 Iu)] Furosemide [Lasix] 40 mg PO DAILY PRN 06/18/20 03/14/21 Gabapentin [Neurontin] 400 mg PO TID 06/18/20 03/14/21 Multivitamins, Thera [Multivitamin 1 tab PO DAILY 06/18/20 03/14/21 (formulary)] Potassium Chloride [Klor-Con 10 ER] 10 meq PO DAILY PRN 06/18/20 03/14/21 Zolpidem Tartrate [Zolpidem 12.5 mg PO HS PRN 06/18/20 03/14/21 Tartrate ER] Calcium Carbonate [Calcium] 1,200 mg PO DAILY 07/26/20 03/14/21 Diltiazem HCl [Diltiazem HCl 24Hr 360 mg PO DAILY 07/26/20 03/14/21 ER] Vitamin B-12 1 oz PO DAILY 07/26/20 03/14/21 Letrozole [Femara] 2.5 mg PO DAILY 11/07/20 03/14/21 Apixaban [Eliquis] 2.5 mg PO BID 03/14/21 03/14/21 Escitalopram [Lexapro] 5 mg PO DAILY 03/14/21 03/14/21 Losartan Potassium [Cozaar] 25 mg PO DAILY 03/14/21 03/14/21 Rosuvastatin Calcium [Crestor] 5 mg PO DAILY 03/14/21 03/14/21 Allergies Allergy/AdvReac Type Severity Reaction Status Date / Time atenolol Allergy VERY LOW Verified 03/14/21 13:20 PULSE, LOW BLOOD PRESSURE Influenza Virus Vaccines AdvReac Severe Rapid Verified 03/14/21 13:20 Heart Rate sertraline [From Zoloft] AdvReac Mild bad dreams Verified 03/14/21 13:20 BETA BLOCKERS Allergy Intermediate LOW BLOOD Uncoded 03/14/21 12:16 PRESSURE,LOW HEART RATE Review of Systems ROS Other: All systems not noted in ROS Statement are negative. <Luis Carlos Luu - Last Filed: 03/14/21 12:12> ROS Other: All systems not noted in ROS Statement are negative. <Lacie Hinkle - Last Filed: 03/14/21 14:27> ROS Statement: Those systems with pertinent positive or pertinent negative responses have been documented in the HPI. Past Medical History Past Medical History: Atrial Fibrillation, Coronary Artery Disease (CAD), Cancer, GERD/Reflux, Hyperlipidemia, Musculoskeletal Disorder, Osteoarthritis (OA), Supraventricular Tachycardia (SVT) Additional Past Medical History / Comment(s): breast ca; aortic valve replacement for aortic stenosis; hx migraine headaches; hx of low HBG; possible GI bleed; hx of kidney stone on xray no tx for it; Has nerve stimulator rt side of back with remote control; neuropathy wil feet; insomnia; History of Any Multi-Drug Resistant Organisms: None Reported Past Surgical History: Back Surgery, Breast Surgery, Cardiac Ablation, Coronary Bypass/CABG, Hysterectomy, Orthopedic Surgery Additional Past Surgical History / Comment(s): LEFT HAND SURGERY; BACK SURGERY X2 (laminectomy and fusion); coronary artery bypass surgery and aortic valve replacement 2015 and repair of a cardiac hole/defect; probably a PFO with a patch; EGD and colonoscopy; sx to remove "black spot on lip" benign; breast bx; wil cataracts; bilateral mastectomy 07/30/20; Past Anesthesia/Blood Transfusion Reactions: Previous Problems w/ Anesthesia Additional Past Anesthesia/Blood Transfusion Reaction / Comment(s): after heart sx "had delirium for 3 days post op" (12 hr surgery, lots of pain and pain meds) states "very hard IV start" Past Psychological History: No Psychological Hx Reported Smoking Status: Former smoker Past Alcohol Use History: None Reported Additional Past Alcohol Use History / Comment(s): Quit smoking 1979, started smoking as a teenager. Smoked less than 1 PPD. Past Drug Use History: None Reported - Past Family History Mother Family Medical History: Cancer Additional Family Medical History / Comment(s): breast ca Father Family Medical History: Deep Vein Thrombosis (DVT) Additional Family Medical History / Comment(s): embolism, <Luis Carlos Luu - Last Filed: 03/14/21 12:12> General Exam General appearance: alert, in no apparent distress Head exam: Present: atraumatic, normocephalic, normal inspection Eye exam: Present: normal appearance, PERRL, EOMI. Absent: scleral icterus, conjunctival injection, periorbital swelling ENT exam: Present: normal exam, mucous membranes moist Neck exam: Present: normal inspection. Absent: tenderness, meningismus, lymphad enopathy Respiratory exam: Present: normal lung sounds bilaterally. Absent: respiratory distress, wheezes, rales, rhonchi, stridor Cardiovascular Exam: Present: tachycardia, irregular rhythm, normal heart sounds. Absent: systolic murmur, diastolic murmur, rubs, gallop, clicks GI/Abdominal exam: Present: soft, normal bowel sounds. Absent: distended, tenderness, guarding, rebound, rigid Extremities exam: Present: normal inspection, full ROM, normal capillary refill. Absent: tenderness, pedal edema, joint swelling, calf tenderness Back exam: Present: normal inspection Neurological exam: Present: alert, oriented X3, CN II-XII intact Psychiatric exam: Present: normal affect, normal mood Skin exam: Present: warm, dry, intact, normal color. 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 fib with a rapid ventricular rate. Rate of 125. QRS 80. QTC of 476. No acute ST segment elevations or depressions <Lacie Hinkle - Last Filed: 03/14/21 14:27> Medical Decision Making - Lab Data Result diagrams: 03/14/21 12:44 03/14/21 12:44 <Lacie Hinkle - Last Filed: 03/14/21 14:27> - Medical Decision Making Upon arrival patient is placed in room 28. A thorough history and physical exam was performed. IV is established. Laboratory studies are conducted. Chest x- rays performed. I did review the patient's labs which are within normal limits. Chest x-ray demonstrates COPD changes. The patient is reevaluated and has converted to a normal rhythm. She remains in A. fib with a controlled rate. I did discuss diagnosis, differential and treatment options. Patient has a follow-up appointment with Dr. Mullen next week. States that she would prefer to follow up with him in regards to possible medication changes. I did offer to make a call to the on-call tack driller however the patient is not bothered by today's episode and states that she can speak with Dr. Mullen next week. I asked the patient to return for any new or worsening symptoms. Patient was discharged home in stable condition (Lacie Hinkle) - Lab Data Lab Results 03/14/21 03/14/21 03/14/21 Range/Units 12:44 12:44 12:44 WBC 8.2 (3.8-10.6) k/uL RBC 4.99 (3.80-5.40) m/uL Hgb 16.0 (11.4-16.0) gm/dL Hct 46.4 H (34.0-46.0) % MCV 92.9 (80.0-100.0) fL MCH 32.1 (25.0-35.0) pg MCHC 34.5 (31.0-37.0) g/dL RDW 12.9 (11.5-15.5) % Plt Count 209 (150-450) k/uL MPV 7.6 Neutrophils % 62 % Lymphocytes % 31 % Monocytes % 4 % Eosinophils % 1 % Basophils % 0 % Neutrophils # 5.0 (1.3-7.7) k/uL Lymphocytes # 2.5 (1.0-4.8) k/uL Monocytes # 0.4 (0-1.0) k/uL Eosinophils # 0.1 (0-0.7) k/uL Basophils # 0.0 (0-0.2) k/uL PT 10.0 (9.0-12.0) sec INR 0.9 (<1.2) APTT 24.2 (22.0-30.0) sec Sodium 137 (137-145) mmol/L Potassium 4.8 (3.5-5.1) mmol/L Chloride 104 (98-107) mmol/L Carbon Dioxide 23 (22-30) mmol/L Anion Gap 10 mmol/L BUN 15 (7-17) mg/dL Creatinine 0.91 (0.52-1.04) mg/dL Est GFR (CKD-EPI)AfAm 70 (>60 ml/min/1.73 sqM) Est GFR (CKD-EPI)NonAf 61 (>60 ml/min/1.73 sqM) Glucose 100 H (74-99) mg/dL Calcium 9.7 (8.4-10.2) mg/dL Magnesium 2.2 (1.6-2.3) mg/dL Total Bilirubin 0.9 (0.2-1.3) mg/dL AST 41 H (14-36) U/L ALT 16 (4-34) U/L Alkaline Phosphatase 111 (38-126) U/L Troponin I (0.000-0.034) ng/mL Total Protein 8.3 H (6.3-8.2) g/dL Albumin 4.6 (3.5-5.0) g/dL TSH 1.760 (0.465-4.680) mIU/L 03/14/21 Range/Units 12:44 WBC (3.8-10.6) k/uL RBC (3.80-5.40) m/uL Hgb (11.4-16.0) gm/dL Hct (34.0-46.0) % MCV (80.0-100.0) fL MCH (25.0-35.0) pg MCHC (31.0-37.0) g/dL RDW (11.5-15.5) % Plt Count (150-450) k/uL MPV Neutrophils % % Lymphocytes % % Monocytes % % Eosinophils % % Basophils % % Neutrophils # (1.3-7.7) k/uL Lymphocytes # (1.0-4.8) k/uL Monocytes # (0-1.0) k/uL Eosinophils # (0-0.7) k/uL Basophils # (0-0.2) k/uL PT (9.0-12.0) sec INR (<1.2) APTT (22.0-30.0) sec Sodium (137-145) mmol/L Potassium (3.5-5.1) mmol/L Chloride (98-107) mmol/L Carbon Dioxide (22-30) mmol/L Anion Gap mmol/L BUN (7-17) mg/dL Creatinine (0.52-1.04) mg/dL Est GFR (CKD-EPI)AfAm (>60 ml/min/1.73 sqM) Est GFR (CKD-EPI)NonAf (>60 ml/min/1.73 sqM) Glucose (74-99) mg/dL Calcium (8.4-10.2) mg/dL Magnesium (1.6-2.3) mg/dL Total Bilirubin (0.2-1.3) mg/dL AST (14-36) U/L ALT (4-34) U/L Alkaline Phosphatase (38-126) U/L Troponin I <0.012 (0.000-0.034) ng/mL Total Protein (6.3-8.2) g/dL Albumin (3.5-5.0) g/dL TSH (0.465-4.680) mIU/L Disposition <Luis Carlos Luu - Last Filed: 03/14/21 12:12> Is patient prescribed a controlled substance at d/c from ED?: No Time of Disposition: 14:14 <Lacie Hinkle - Last Filed: 03/14/21 14:27> Clinical Impression: Atrial fibrillation with RVR, Palpitations Disposition: HOME SELF-CARE Condition: Stable Instructions (If sedation given, give patient instructions): A-fib (Atrial Fibrillation) (ED) Additional Instructions: Please follow up with Dr. Mullen at your scheduled appointment next week. Tell him that you have having episodes of fast heart rate. He may want to make some medications changes. For now, take your same medications as directed. Return to the ED for any new or worsening symptoms. Referrals: Silvana Steiner MD [Primary Care Provider] - 1-2 days Luke Mullen MD [STAFF PHYSICIAN] - 1-2 days
[2021-03-14 13:03] LABS: Basophils % (A) 0 %; Eosinophils # (A) 0.1 k/uL (0-0.7); Eosinophils % (A) 1 %; HCT 46.4 % (34.0-46.0); Lymphocytes # (A) 2.5 k/uL (1.0-4.8); Lymphocytes % (A) 31 %; MCH 32.1 pg (25.0-35.0); MCHC 34.5 g/dL (31.0-37.0); MCV 92.9 fL (80.0-100.0); Mean Platelet Volume 7.6; Monocytes # (A) 0.4 k/uL (0-1.0); Monocytes % (A) 4 %; Neutrophils % (A) 62 %; Platelet Count 209 k/uL (150-450); RBC 4.99 m/uL (3.80-5.40); RDW 12.9 % (11.5-15.5); WBC 8.2 k/uL (3.8-10.6)
--- NOTE | 2021-03-14 13:06 | XR ---
EXAMINATION TYPE: XR chest 2V DATE OF EXAM: 03/14/2021 COMPARISON: 09/19/2018 TECHNIQUE: PA and lateral views submitted. HISTORY: Dysrhythmia FINDINGS: The lungs are clear and there is no pneumothorax, pleural effusion, or focal pneumonia. Hyperinflat ion suggests COPD. Stimulator device noted overlying the thoracic spine. Postsurgical changes noted. No overt failure. Hypertrophic and degenerative change of the spine. IMPRESSION: 1. No acute process. Correlate for COPD.
[2021-03-14 13:18] LABS: Albumin 4.6 g/dL (3.5-5.0); Calcium 9.7 mg/dL (8.4-10.2); Magnesium 2.2 mg/dL (1.6-2.3); Total Bilirubin 0.9 mg/dL (0.2-1.3); Total Protein 8.3 g/dL (6.3-8.2)
[2021-03-14 13:23] LABS: INR 0.9 (<1.2); Partial Thromboplastin Time 24.2 sec (22.0-30.0)
[2021-03-14 13:43] LABS: Potassium 4.8 mmol/L (3.5-5.1)
[2021-03-14 15:13] VITALS: BP 128/89; PULSE 59; RESP 19; TEMP 98
== END 2021-03-14 15:16 | disposition home or self-care (01) ==
LOC: EC 11:49
DX: I48.20 Chronic atrial fibrillation, unspecified (principal); R00.2 Palpitations; I25.10 Atherosclerotic heart disease of native coronary artery without angina pectoris; K21.9 Gastro-esophageal reflux disease without esophagitis; E78.5 Hyperlipidemia, unspecified; M19.90 Unspecified osteoarthritis, unspecified site; Z79.01 Long term (current) use of anticoagulants; Z88.7 Allergy status to serum and vaccine; Z85.3 Personal history of malignant neoplasm of breast; Z87.442 Personal history of urinary calculi; Z90.710 Acquired absence of both cervix and uterus; Z95.1 Presence of aortocoronary bypass graft; Z87.891 Personal history of nicotine dependence
CPT/HCPCS: 36415; 71046; 80053; 83735; 84443; 84484; 85025; 85610; 85730; 93005; 99285

== ENCOUNTER → 2021-03-14 | Outpatient (CLI) | payer MEDICARE ==
[2021-03-14 11:12] VITALS: BP 150/67; PULSE 65; RESP 18; TEMP 98
--- NOTE | 2021-03-14 11:47 | P.PN ---
Subjective Progress Note Date: 03/14/21 Principal diagnosis: Invasive lobular carcinoma right breast [id number]; stage IA Lakesha is a 76-year-old white female status post bilateral mastectomy and sentinel node biopsy on 07-30-20. The patient's left breast simple mastectomy was benign in the right breast simple mastectomy had a 1.8 cm invasive lobular carcinoma. This was multifocal lobular carcinoma. All margins were negative. The uninvolved breast had focal atypical ductal hyperplasia. The patient is doing well at this time with no complaints. She is presently on an aromatase inhibitor, letrazole as per medical oncology. She is not having any problems related to this. She did not have any radiation therapy. She is going to have her bone density closely followed as per medical oncology. She had an oncotype test done and was told she did not need chemotherapy. She has no complaints of any lumps masses or nodules of concern on her chest wall. The patient has had some intermittent episodes of palpitations and tachycardia since yesterday. Family History Mother of breast cancer when patient was 1 Brother colon cancer Hormonal history: Menarche: 14 , breast fed positive First. H 20 Menopause in her 40s, hysterectomy at 23 was removed was left Control pills approximately 5 years Medical history: 1. Congenital heart defect Aortic stenosis Reflux High cholesterol Surgical history: Congenital heart defect patch 2016 repair aortic valve Back surgery 2 4 cardiac ablations for atrial fib Social history: Smokes stopped 40 years ago Alcohol: Social not now Drugs: Negative - Constitutional Constitutional: Denies chills, Denies fever - EENT Eyes: denies blurred vision, denies pain Ears: bilateral: decreased hearing, deny: tinnitus Ears, nose, mouth and throat: Reports headache, Denies sore throat - Breasts Breasts: bilateral: as per HPI - Cardiovascular Cardiovascular: Reports as per HPI - Respiratory Respiratory: Denies cough - Gastrointestinal Gastrointestinal: Denies abdominal pain, Denies diarrhea, Denies nausea, Denies vomiting - Genitourinary (Female) Comment: kidney stones seen on x ray in past but not treated Genitourinary: Reports kidney stones, Denies dysuria, Denies hematuria - Menstruation Menstruation: Reports post hysterectomy - Musculoskeletal Comment: Osteoarthritis, osteoporosis Musculoskeletal: Reports leg numbness/tingling - Integumentary Integumentary: Reports pruritus, Denies rash - Neurological Neurological: Reports numbness, Reports weakness - Psychiatric Psychiatric: Reports anxiety, Reports depression - Endocrine Endocrine: Reports weight change - Hematologic/Lymphatic Comment: on eliquis Hematologic/Lymphatic: Reports as per HPI - Allergic/Immunologic Allergic/Immunologic: Reports as per HPI Objective - Vital Signs Vital signs: Vital Signs Temp 98.0 F 03/14/21 11:08 Pulse 65 03/14/21 11:08 Resp 18 03/14/21 11:08 BP 150/67 03/14/21 11:08 Pulse Ox 98 03/14/21 11:08 Intake & Output 03/13/21 03/14/21 03/14/21 18:59 06:59 18:59 Weight 62.142 kg - Exam BMI 26.3 - Constitutional General appearance: Present: cooperative - EENT Eyes: Present: EOMI ENT: Present: hearing grossly normal - Neck Neck: Present: normal ROM - Respiratory Respiratory: bilateral: CTA - Cardiovascular Rhythm: irregularly irregular Heart sounds: normal: S1, S2 - Gastrointestinal General gastrointestinal: Present: soft - Integumentary Integumentary: Present: normal turgor - Musculoskeletal Musculoskeletal: Present: gait normal - Psychiatric Psychiatric: Present: A&O x's 3, appropriate affect, intact judgment & insight - Additional findings Additional findings: Chest wall: Incision clean and dry bilateral No evidence of any recurrent cancer Right axilla: No adenopathy of concern Left axilla: No adenopathy Assessment and Plan Assessment: Impression: Congenital heart defect Aortic stenosis Reflux High cholesterol invasive lobular carcinoma Plan: 1. no recurrent cancer 2. tachycardia today with irregular heart beat 3. continue letrazole 4. follow up medical oncology 5. follow up in [address] Rojas with tachycardia recommend go the the ER CC: Dr. Steiner
== END ==
LOC: WWCWWP 11:04
PROVIDERS: ATTEND Surgery
DX: C50.911 Malignant neoplasm of unspecified site of right female breast (principal); Q21.9 Congenital malformation of cardiac septum, unspecified; K21.9 Gastro-esophageal reflux disease without esophagitis; E78.00 Pure hypercholesterolemia, unspecified; I35.0 Nonrheumatic aortic (valve) stenosis; Z87.891 Personal history of nicotine dependence; Z88.8 Allergy status to other drugs, medicaments and biological substances; Z88.7 Allergy status to serum and vaccine

== ENCOUNTER → 2021-04-10 | Outpatient (CLI) | payer MEDICARE ==
--- NOTE | 2021-04-10 15:22 | BD ---
EXAMINATION TYPE: Axial Bone Density DATE OF EXAM: 04/10/2021 COMPARISON: 2018 CLINICAL HISTORY: Postmenopausal screening Height: 61 Weight: 137.7 FRAX RISK QUESTIONS: Alcohol (3 or more units per day): no Family History (Parent hip fracture): no Glucocorticoids (More than 3mos): no (Ex: prednisone, prednisolone, methylprednisolone, dexamethasone, and hydrocortisone). History of Fracture in Adulthood: yes Secondary Osteoporosis: 1. Type 1 Diabetes: no 2. Hyperthyroidism: no 3. Menopause before 45: yes 4. Malnutrition: no 5. Chronic liver disease: no Rheumatoid Arthritis: no Current Tobacco Use: no RISK FACTORS HISTORY OF: Surgery to Spine/Hip(right/left)/Wrist (right/left): lumbar spine Family History of Osteoporosis: no Active: no Diet low in dairy products/other sources of calcium: yes Postmenopausal woman: yes Lost more than 2 inches in height since high school: yes MEDICATIONS: see pacs for list Additional History: pt has had breast cancer EXAM MEASUREMENTS: Bone mineral densitometry was performed using the [employer]. Bone mineral density about the R hip (g/cm2): 0.840 Bone mineral density about the L hip (g/cm2): 0.859 T Score values are as follows: -----R Neck: -1.4 -----L Neck: -1.3 -----R Total: -0.7 -----L Total: -0.8 Bone mineral density has: increased 3.1 % since study of: 12.22.2017 Bone mineral density about the L Wrist (g/cm2): 0.471 T Score values are as follows: -----Dist. R+U: -2.5 -----Prox. R+U: -3.0 -----Radius total: -3.4 Bone mineral density has: decreased -5.1 % since study of: 12.22.2017 IMPRESSION: Osteoporosis (T Score less than -2.5). There is increased fracture risk and therapy is usually indicated based on age. Re-Screen 1-2 years. NOTE: T-SCORE=SD OF THE YOUNG ADULT MEAN.
== END | disposition home or self-care (01) ==
LOC: RADBDWWP 09:43
PROVIDERS: ATTEND Internal Medicine Hematology & Oncology
DX: M81.0 Age-related osteoporosis without current pathological fracture (principal); M85.89 Other specified disorders of bone density and structure, multiple sites; Z78.0 Asymptomatic menopausal state
CPT/HCPCS: 77080

== ENCOUNTER → 2021-10-30 | Outpatient (CLI) | payer MEDICARE ==
[2021-10-30 13:23] VITALS: BP 163/88; PULSE 89; RESP 18; TEMP 98.6
--- NOTE | 2021-10-30 13:37 | P.PN ---
Subjective Progress Note Date: 10/30/21 Principal diagnosis: Invasive lobular carcinoma right breast [id number]; stage IA Invasive lobular carcinoma right breast [id number]; stage IA Lakesha is a 76-year-old white female status post bilateral mastectomy and sentinel node biopsy on 07-30-20. The patient's left breast simple mastectomy was benign in the right breast simple mastectomy had a 1.8 cm invasive lobular carcinoma. This was multifocal lobular carcinoma. All margins were negative. The uninvolved breast had focal atypical ductal hyperplasia. The patient is doing well at this time with no complaints. She is presently on an aromatase inhibitor, letrazole as per medical oncology. She is not having any problems related to this. She did not have any radiation therapy. She is going to have her bone density closely followed as per medical oncology. She had an oncotype test done and was told she did not need chemotherapy. She has no complaints of any lumps masses or nodules of concern on her chest wall. The patient was sent to the ER at her last visit and diagnosed with atrial fib., she was seen by Dr. Mullen and her medication was changed. She is doing well at this time. note from Dr. Graff 03-05-21 reviewed Family History Mother of breast cancer when patient was 1 Brother colon cancer Hormonal history: Menarche: 14 , breast fed positive First. H 20 Menopause in her 40s, hysterectomy at 23 was removed was left Control pills approximately 5 years Medical history: 1. Congenital heart defect Aortic stenosis Reflux High cholesterol atrial fibrillation on eliquis Surgical history: Congenital heart defect patch 2016 repair aortic valve Back surgery 2 4 cardiac ablations for atrial fib Social history: Smokes stopped 40 years ago Alcohol: Social not now Drugs: Negative - Constitutional Constitutional: Denies chills, Denies fever - EENT Eyes: denies blurred vision, denies pain Ears: bilateral: decreased hearing, deny: tinnitus Ears, nose, mouth and throat: Reports headache, Denies sore throat - Breasts Breasts: bilateral: as per HPI - Cardiovascular Cardiovascular: Reports as per HPI - Respiratory Respiratory: Denies cough - Gastrointestinal Gastrointestinal: Denies abdominal pain, Denies diarrhea, Denies nausea, Denies vomiting - Genitourinary (Female) Comment: kidney stones seen on x ray in past but not treated Genitourinary: Reports kidney stones, Denies dysuria, Denies hematuria - Menstruation Menstruation: Reports post hysterectomy - Musculoskeletal Comment: Osteoarthritis, osteoporosis Musculoskeletal: Reports leg numbness/tingling - Integumentary Integumentary: Reports pruritus, Denies rash - Neurological Neurological: Reports numbness, Reports weakness - Psychiatric Psychiatric: Reports anxiety, Reports depression - Endocrine Endocrine: Reports weight change - Hematologic/Lymphatic Comment: on eliquis Hematologic/Lymphatic: Reports as per HPI - Allergic/Immunologic Allergic/Immunologic: Reports as per HPI Objective - Vital Signs Vital signs: Vital Signs Temp 98.6 F 10/30/21 13:18 Pulse 89 10/30/21 13:18 Resp 18 10/30/21 13:18 BP 163/88 10/30/21 13:18 Pulse Ox 96 10/30/21 13:18 Intake & Output 10/29/21 10/30/21 10/30/21 18:59 06:59 18:59 Weight 83.915 kg - Exam BMI: 35.5 - Constitutional General appearance: Present: cooperative - EENT Eyes: Present: EOMI ENT: Present: hearing grossly normal - Neck Neck: Present: normal ROM - Respiratory Respiratory: bilateral: CTA - Cardiovascular Heart sounds: normal: S1, S2 Abnormal Heart Sounds: Present: systolic murmur - Integumentary Integumentary: Present: normal turgor - Musculoskeletal Musculoskeletal: Present: gait normal - Psychiatric Psychiatric: Present: A&O x's 3, appropriate affect, intact judgment & insight - Additional findings Additional findings: Chest Wall Exam: inspection: Incisions clean and dry bilateral well-healed Palpation: Right chest wall: No evidence of any disease Right axilla: No adenopathy of concern Left chest wall: No evidence of any disease Left axilla: No adenopathy of concern Assessment and Plan Assessment: Impression: Congenital heart defect Aortic stenosis Reflux High cholesterol atrial fibrillation on eliquis Bilateral mastectomy, left breast negative for cancer, right breast 1.8 cm invasive lobular carcinoma grade 1 margins negative, sentinel lymph node biopsy negative, Oncotype DX 11%, patient on resolved Plan: Follow up evaluation in 6 months continue to follow up with medical oncology CC: Kaleigh Boss
== END ==
LOC: WWCWWP 13:03
PROVIDERS: ATTEND Surgery
DX: C50.911 Malignant neoplasm of unspecified site of right female breast (principal); Q24.9 Congenital malformation of heart, unspecified; I35.0 Nonrheumatic aortic (valve) stenosis; K21.9 Gastro-esophageal reflux disease without esophagitis; E78.00 Pure hypercholesterolemia, unspecified; I48.91 Unspecified atrial fibrillation; Z79.01 Long term (current) use of anticoagulants; Z87.891 Personal history of nicotine dependence; Z90.13 Acquired absence of bilateral breasts and nipples; Z17.0 Estrogen receptor positive status [ER+]; Z88.7 Allergy status to serum and vaccine; Z88.8 Allergy status to other drugs, medicaments and biological substances

== ENCOUNTER → 2021-12-04 | Outpatient (CLI) | payer MEDICARE ==
[2021-12-04 18:14] LABS: HGB 12.9 g/dL (12.0-15.0); MCH 30.2 pg (27.0-32.0); MCHC 32.3 g/dL (32.0-37.0); MCV 93.7 fL (80.0-97.0); NRBC Per 100 WBC 0 /100 WBCS (0.0-0.0); Platelet Count 195 X 10*3/uL (140-440); RBC 4.27 X 10*6/uL (4.10-5.20); RDW 13.6 % (11.5-14.5); WBC 7.19 X 10*3/uL (4.50-10.00)
[2021-12-04 18:44] LABS: ALT 15 U/L (8-44); AST 23 U/L (13-35); Albumin 4.3 g/dL (3.8-4.9); Albumin/Globulin Ratio 1.59 (1.60-3.17); Alkaline Phosphatase 93 U/L (41-126); BUN/Creat Ratio 14.67 Ratio (12.00-20.00); Blood Urea Nitrogen 13.2 mg/dL (9.0-27.0); Calcium 9.3 mg/dL (8.7-10.3); Carbon Dioxide 22.5 mmol/L (20.0-27.5); Chloride 104 mmol/L (96-109); Chol/HDL Ratio 2.26 Ratio; Globulin 2.7 g/dL (1.6-3.3); Glucose 92 mg/dL (70-110); LDL Cholesterol,Calculated 77.1 mg/dL (0.0-131.0); Non-African American GFR(CKD) 61.2 (60.0-200.0); Potassium 4.3 mmol/L (3.5-5.5); Sodium 139 mmol/L (135-145); VLDL Calculation 13.78 mg/dL (5.00-40.00)
== END | disposition home or self-care (01) ==
LOC: LABWHC1 12:37
PROVIDERS: ATTEND Physician Assistant
DX: I10 Essential (primary) hypertension (principal); E78.5 Hyperlipidemia, unspecified; R73.02 Impaired glucose tolerance (oral); G62.9 Polyneuropathy, unspecified
CPT/HCPCS: 36415; 80053; 80061; 82607; 83036; 84443; 85027

== ENCOUNTER 2022-08-01 12:43 | Emergency (ER) | payer MEDICARE ==
[2022-08-01] MEDS ORDERED: SODIUM CHLORIDE 0.9% 2,000 ML IV STA (13:41)
[2022-08-01] MEDS ORDERED: PANTOPRAZOLE 40 MG/10 ML VIAL IVP STA (13:41)
[2022-08-01 14:15] LABS: Basophils % (A) 1 %; Eosinophils % (A) 0 %; HCT 44.5 % (34.0-46.0); HGB 14.9 gm/dL (11.4-16.0); Lymphocytes % (A) 26 %; MCH 30.2 pg (25.0-35.0); MCHC 33.6 g/dL (31.0-37.0); MCV 89.8 fL (80.0-100.0); Monocytes # (A) 0.3 k/uL (0-1.0); Monocytes % (A) 4 %; Neutrophils # (A) 5.1 k/uL (1.3-7.7); Neutrophils % (A) 67 %; Platelet Count 161 k/uL (150-450); RBC 4.95 m/uL (3.80-5.40); RDW 13.3 % (11.5-15.5); WBC 7.6 k/uL (3.8-10.6)
[2022-08-01 14:25] LABS: Albumin 4.2 g/dL (3.5-5.0); Calcium 9.3 mg/dL (8.4-10.2); Total Bilirubin 0.6 mg/dL (0.2-1.3); Total Protein 7.4 g/dL (6.3-8.2)
[2022-08-01 14:30] LABS: Partial Thromboplastin Time 22.5 sec (22.0-30.0); Prothrombin Time 10.5 sec (9.0-12.0)
--- NOTE | 2022-08-01 14:30 | XR ---
EXAMINATION TYPE: XR chest 2V DATE OF EXAM: 08/01/2022 2:11 PM COMPARISON: Chest x-ray 03/14/2021 TECHNIQUE: XR chest 2V CT chest 06/19/2020. CLINICAL INDICATION:Female, 77 years old with history of abdominal pain; FINDINGS: Lungs/Pleura: Prominent interstitial lung markings are seen scattered throughout the lungs. No eviden ce of focal consolidation, pneumothorax or pleural effusion. Emphysematous changes of the lung apices bilaterally. Pulmonary vascularity: Unremarkable. Heart/mediastinum: Cardiomediastinal silhouette is unremarkable. Postoperative changes are present i n the mediastinum. Sternotomy wires present. Musculoskeletal: No acute osseous pathology. Other findings: Spinal cord stimulator posterior to the mid thoracic vertebra. IMPRESSION: Chronic changes without acute pulmonary process. No significant change from prior.
--- NOTE | 2022-08-01 15:22 | ED ---
General Adult HPI - General Source: patient, family, RN notes reviewed, old records reviewed Mode of arrival: ambulatory Limitations: no limitations <Lennox Iraheta - Last Filed: 08/01/22 15:30> <Juve Anna - Last Filed: 08/01/22 17:05> - General Chief complaint: Nausea/Vomiting/Diarrhea Stated complaint: dehydration Time Seen by Provider: 08/01/22 13:00 - History of Present Illness Initial comments: Patient is a 77-year-old female who presents emergency Department complaining of a two-week history of persistent nausea, vomiting. Past medical history remarkable for A. fib on blood thinners, CAD, acid reflux. States she is having nonspecific abdominal discomfort as well as epigastric abdominal discomfort associated with nonbilious, bloody emesis on a daily basis. Multiple episodes per day. States she is unable to tolerate much in terms of oral intake. Denies any sick contacts. Denies any dysuria or hematuria. Denies diarrhea. Denies any chest pain or shortness of breath. States she hasn't been able to be fully compliant with her medications at home because of this. Presents for further evaluation at this time with her daughter. (Lennox Iraheta) - Related Data Home Medications Medication Instructions Recorded Confirmed Omeprazole [PriLOSEC] 20 mg PO DAILY 09/19/18 08/01/22 Zolpidem Tartrate [Zolpidem 12.5 mg PO HS PRN 06/18/20 08/01/22 Tartrate ER] Letrozole [Femara] 2.5 mg PO DAILY 11/07/20 08/01/22 Apixaban [Eliquis] 5 mg PO BID 03/14/21 08/01/22 Rosuvastatin Calcium [Crestor] 5 mg PO DAILY 03/14/21 08/01/22 Amiodarone [Cordarone] 200 mg PO Q48H 08/01/22 08/01/22 Donepezil [Aricept] 5 mg PO DAILY 08/01/22 08/01/22 Gabapentin 300 mg PO BID 08/01/22 08/01/22 Meclizine [Antivert] 12.5 mg PO BID PRN 08/01/22 08/01/22 Ondansetron Odt [Zofran Odt] 8 mg PO Q8HR PRN 08/01/22 08/01/22 Sulfamethox-Tmp 800-160Mg [Bactrim 1 tab PO DIRECTED 08/01/22 08/01/22 DS 800-160 mg] dilTIAZem HCL [Tiadylt ER] 240 mg PO DAILY 08/01/22 08/01/22 Allergies Allergy/AdvReac Type Severity Reaction Status Date / Time atenolol Allergy VERY LOW Verified 08/01/22 14:26 PULSE, LOW BLOOD PRESSURE Influenza Virus Vaccines AdvReac Severe Rapid Verified 08/01/22 14:26 Heart Rate sertraline [From Zoloft] AdvReac Mild bad dreams Verified 08/01/22 14:26 BETA BLOCKERS Allergy Intermediate LOW BLOOD Uncoded 10/30/21 13:23 PRESSURE,LOW HEART RATE Review of Systems ROS Other: All systems not noted in ROS Statement are negative. <Lennox Iraheta - Last Filed: 08/01/22 15:30> ROS Other: All systems not noted in ROS Statement are negative. <Juve Anna - Last Filed: 08/01/22 17:05> ROS Statement: Those systems with pertinent positive or pertinent negative responses have been documented in the HPI. Review of Systems: CONST: Denies fever EYES: Denies blurry vision ENT: Denies nasal congestion C/V: Denies Chest pain RESP: Denies shortness of breath GI: Endorses abdominal pain : Denies dysuria SKIN: Denies rash. MSK: Denies joint pain. NEURO: Denies headache (Lennox Iraheta) Past Medical History Past Medical History: Atrial Fibrillation, Coronary Artery Disease (CAD), Cancer, GERD/Reflux, Hyperlipidemia, Musculoskeletal Disorder, Osteoarthritis (OA), Supraventricular Tachycardia (SVT) Additional Past Medical History / Comment(s): breast ca; aortic valve replacement for aortic stenosis; hx migraine headaches; hx of low HBG; possible GI bleed; hx of kidney stone on xray no tx for it; Has nerve stimulator rt side of back with remote control; neuropathy wil feet; insomnia; History of Any Multi-Drug Resistant Organisms: None Reported Past Surgical History: Back Surgery, Breast Surgery, Cardiac Ablation, Coronary Bypass/CABG, Hysterectomy, Orthopedic Surgery Additional Past Surgical History / Comment(s): LEFT HAND SURGERY; BACK SURGERY X2 (laminectomy and fusion); coronary artery bypass surgery and aortic valve replacement 2015 and repair of a cardiac hole/defect; probably a PFO with a patch; EGD and colonoscopy; sx to remove "black spot on lip" benign; breast bx; wil cataracts; bilateral mastectomy 07/30/20; Past Anesthesia/Blood Transfusion Reactions: Previous Problems w/ Anesthesia Additional Past Anesthesia/Blood Transfusion Reaction / Comment(s): after heart sx "had delirium for 3 days post op" (12 hr surgery, lots of pain and pain me ds) states "very hard IV start" Past Psychological History: No Psychological Hx Reported Smoking Status: Former smoker Past Alcohol Use History: None Reported Past Drug Use History: None Reported - Past Family History Mother Family Medical History: Cancer Additional Family Medical History / Comment(s): breast ca Father Family Medical History: Deep Vein Thrombosis (DVT) Additional Family Medical History / Comment(s): embolism, <Lennox Iraheta - Last Filed: 08/01/22 15:30> General Exam Limitations: no limitations <Lennox Iraheta - Last Filed: 08/01/22 15:30> - General Exam Comments Initial Comments: General: Appears in no acute distress. HEAD: Normal with no signs of head trauma. EYES: PERRLA, EOMI, conjunctiva normal, no discharge. ENT: Hearing grossly intact, normal oropharynx. Mildly dry mucous membranes. RESPIRATORY: Clear breath sounds bilaterally. No wheezes, rales, or rhonchi. C/V: Regular rate and rhythm. S1 and S2 auscultated, no edema, peripheral pulses 2+ and intact throughout ABD: Abd is soft, nontender, nondistended. Minimal tenderness if any. No guarding. No rebound tenderness, no peritoneal signs. No CVA tenderness to percussion. EXT: Normal range of motion, no obvious deformity SKIN: No rashes or lesions observed on exposed skin. NEURO: Alert and oriented x 4. Cranial nerves II-XII intact. No focal sensory or strength deficits. (Lennox Iraheta) Course <Juve Anna - Last Filed: 08/01/22 17:05> Vital Signs 08/01/22 12:44 Temperature 97.8 F Pulse Rate 63 Respiratory 16 Rate Blood Pressure 148/70 O2 Sat by Pulse 98 Oximetry - Reevaluation(s) Reevaluation #1: 08/01/22 17:01 Patient states that her nausea/symptoms have improved with ED treatment, and she denies development of any new symptoms while in the ED. Patient is currently alert and breathing comfortably. Patient has a soft and nontender abdominal e xam at this time. Patient and daughter are aware the patient's test results, and they both feel comfortable with the patient being discharged home at this time. They were counseled about nausea and vomiting. They were clearly explained return and follow-up instructions. Patient was instructed to follow up closely with her primary care provider. (Juve Anna) Medical Decision Making - Lab Data Result diagrams: 08/01/22 14:07 08/01/22 14:07 - EKG Data -: EKG Interpreted by Me <Lennox Iraheta - Last Filed: 08/01/22 15:30> - Lab Data Result diagrams: 08/01/22 14:07 08/01/22 14:07 <Juev Anna - Last Filed: 08/01/22 17:05> - Medical Decision Making Was pt. sent in by a medical professional or institution (Dr. PA, NORMALIZER, urgent care, hospital, or residential...) When possible be specific @ -Yes, patient sent from PCPs office over concern for nausea, vomiting, weakness. Did you speak to anyone other than the patient for history (EMS, parent, family, police, friend...)? What history was obtained from this source @ -Yes, patient's daughter who provided patient's recent past medical history. Did you review nursing and triage notes (agree or disagree)? Why? @ -I reviewed and agree with nursing and triage notes Were old charts reviewed (outside hosp., previous admission, EMS record, old EKG, old radiological studies, urgent care reports/EKG's, residential records)? Report findings @ -Yes, charts from March 2021 were reviewed including EKG. Differential Diagnosis (chest pain, altered mental status, abdominal pain women, abdominal pain men, vaginal bleeding, weakness, fever, dyspnea, syncope, headache, dizziness, GI bleed, back pain, seizure, CVA, palpatations, mental health)? @ -Infection, dehydration, TROY, gastritis, gallbladder pathology, diverticulitis, UTI. This list is not all inclusive. EKG interpreted by me (3pts min.). @ -As above X-rays interpreted by me (1pt min.). @ -Chest X-ray revealed no acute cardio or process. CT interpreted by me (1pt min.). @ -Pending CT imaging of the abdomen and pelvis. U/S interpreted by me (1pt. min.). @ -None done What testing was considered but not performed or refused? (CT, X-rays, U/S, labs)? Why? @ -None What meds were considered but not given or refused? Why? @ -None Did you discuss the management of the patient with other professionals (professionals i.e. , PA, NORMALIZER, lab, RT, psych nurse, nursing home social worker, control chemist, teacher, combat information center officer, field nurse case manager)? Give summary @ -No Was smoking cessation discussed for >3mins.? @ -No Was critical care preformed (if so, how long)? @ -No Were there social determinants of health that impacted care today? How? (Homelessness, low income, unemployed, alcoholism, drug addiction, transportation, low edu. Level, literacy, decrease access to med. care, fpc, rehab)? @ -No Was there de-escalation of care discussed even if they declined (Discuss DNR or withdrawal of care, Hospice)? DNR status @ -No What co-morbidities impacted this encounter? (DM, HTN, Smoking, COPD, CAD, Cancer, CVA, ARF, Chemo, Hep., AIDS, mental health diagnosis, sleep apnea, morbid obesity)? @ -None Was patient admitted / discharged? Hospital course, mention meds given and route, prescriptions, significant lab abnormalities, going to OR and other pertinent info. @ - Based on the patient's presentation and physical exam, I'm concerned for dehydration as well as possible intra-abdominal process for current symptoms. Cannot rule out c atypical ACS presentation either. We will obtain EKG, chest x-rays, CT abdomen and pelvis as well as abdominal laboratory studies and troponin. Patient was in agreement this plan. Patient already received Rocephin prior to presentation today. I did offer the patient analgesia which she declined. She will receive IV Protonix and fluids. She was in agreement this plan. Vital signs within acceptable limits. EKG showed no signs of acute ischemia. Laboratory studies were remarkable for an undetectable troponin. Urinalysis and viral swabs still pending at this time. At this time it is the end of my shift. Care transitioned to Dr. Anna. (Lennox Iraheta) Patient was endorsed to me by ED physician Dr. Iraheta (secondary to shift change) with the patient's viral studies and CT abdomen/pelvis still pending. Patient's viral studies are all negative. Patient's CT abdomen/pelvis is nega tive for any acute abnormality. Patient's labs were all reviewed myself and are fairly unremarkable. Patient has a soft and nontender abdominal exam at this time. Patient is afebrile and without leukocytosis. Patient states that her symptoms have improved with ED treatment. I do not suspect an emergent medical or surgical condition at this time. Patient states that she has ODT Zofran at home. Patient was instructed to follow up closely with her primary care provider. Patient feels comfortable being discharged home at this time. Diagnosis/symptom? @ -[Nausea and vomiting] Acute, or Chronic, or Acute on Chronic? @ -[Acute] Uncomplicated (without systemic symptoms) or Complicated (systemic symptoms)? @ -[default] Side effects of treatment? @ -[No] Exacerbation, Progression, or Severe Exacerbation? @ -[No] Poses a threat to life or bodily function? How? (Chest pain, USA, AL, pneumonia, PE, COPD, DKA, ARF, appy, cholecystitis, CVA, Diverticulitis, Homicidal, Suicidal, threat to staff... and all critical care pts) @ -[No] (Juve Anna) - Lab Data Lab Results 08/01/22 08/01/22 08/01/22 Range/Units 14:07 14:07 14:07 WBC 7.6 (3.8-10.6) k/uL RBC 4.95 (3.80-5.40) m/uL Hgb 14.9 (11.4-16.0) gm/dL Hct 44.5 (34.0-46.0) % MCV 89.8 (80.0-100.0) fL MCH 30.2 (25.0-35.0) pg MCHC 33.6 (31.0-37.0) g/dL RDW 13.3 (11.5-15.5) % Plt Count 161 (150-450) k/uL MPV 8.0 Neutrophils % 67 % Lymphocytes % 26 % Monocytes % 4 % Eosinophils % 0 % Basophils % 1 % Neutrophils # 5.1 (1.3-7.7) k/uL Lymphocytes # 2.0 (1.0-4.8) k/uL Monocytes # 0.3 (0-1.0) k/uL Eosinophils # 0.0 (0-0.7) k/uL Basophils # 0.0 (0-0.2) k/uL PT 10.5 (9.0-12.0) sec INR 1.0 (<1.2) APTT 22.5 (22.0-30.0) sec Sodium 139 (137-145) mmol/L Potassium 4.0 (3.5-5.1) mmol/L Chloride 102 (98-107) mmol/L Carbon Dioxide 30 (22-30) mmol/L Anion Gap 7 mmol/L BUN 13 (7-17) mg/dL Creatinine 1.04 (0.52-1.04) mg/dL Est GFR (CKD-EPI)AfAm 59 (>60 ml/min/1.73 sqM) Est GFR (CKD-EPI)NonAf 51 (>60 ml/min/1.73 sqM) Glucose 107 H (74-99) mg/dL Plasma Lactic Acid Orestes (0.7-2.0) mmol/L Calcium 9.3 (8.4-10.2) mg/dL Total Bilirubin 0.6 (0.2-1.3) mg/dL AST 29 (14-36) U/L ALT 20 (4-34) U/L Alkaline Phosphatase 71 (38-126) U/L Troponin I (0.000-0.034) ng/mL Total Protein 7.4 (6.3-8.2) g/dL Albumin 4.2 (3.5-5.0) g/dL Amylase 54 (30-110) U/L Lipase 52 (23-300) U/L Urine Color Urine Appearance (Clear) Urine pH (5.0-8.0) Ur Specific Frederick (1.001-1.035) Urine Protein (Negative) Urine Glucose (UA) (Negative) Urine Ketones (Negative) Urine Blood (Negative) Urine Nitrite (Negative) Urine Bilirubin (Negative) Urine Urobilinogen (<2.0) mg/dL Ur Leukocyte Esterase (Negative) Influenza Type A (PCR) (Not Detectd) Influenza Type B (PCR) (Not Detectd) RSV (PCR) (Not Detectd) SARS-CoV-2 (PCR) (Not Detectd) 08/01/22 08/01/22 08/01/22 Range/Units 14:07 14:07 14:40 WBC (3.8-10.6) k/uL RBC (3.80-5.40) m/uL Hgb (11.4-16.0) gm/dL Hct (34.0-46.0) % MCV (80.0-100.0) fL MCH (25.0-35.0) pg MCHC (31.0-37.0) g/dL RDW (11.5-15.5) % Plt Count (150-450) k/uL MPV Neutrophils % % Lymphocytes % % Monocytes % % Eosinophils % % Basophils % % Neutrophils # (1.3-7.7) k/uL Lymphocytes # (1.0-4.8) k/uL Monocytes # (0-1.0) k/uL Eosinophils # (0-0.7) k/uL Basophils # (0-0.2) k/uL PT (9.0-12.0) sec INR (<1.2) APTT (22.0-30.0) sec Sodium (137-145) mmol/L Potassium (3.5-5.1) mmol/L Chloride (98-107) mmol/L Carbon Dioxide (22-30) mmol/L Anion Gap mmol/L BUN (7-17) mg/dL Creatinine (0.52-1.04) mg/dL Est GFR (CKD-EPI)AfAm (>60 ml/min/1.73 sqM) Est GFR (CKD-EPI)NonAf (>60 ml/min/1.73 sqM) Glucose (74-99) mg/dL Plasma Lactic Acid Orestes 1.4 (0.7-2.0) mmol/L Calcium (8.4-10.2) mg/dL Total Bilirubin (0.2-1.3) mg/dL AST (14-36) U/L ALT (4-34) U/L Alkaline Phosphatase (38-126) U/L Troponin I <0.012 (0.000-0.034) ng/mL Total Protein (6.3-8.2) g/dL Albumin (3.5-5.0) g/dL Amylase (30-110) U/L Lipase (23-300) U/L Urine Color Urine Appearance (Clear) Urine pH (5.0-8.0) Ur Specific Frederick (1.001-1.035) Urine Protein (Negative) Urine Glucose (UA) (Negative) Urine Ketones (Negative) Urine Blood (Negative) Urine Nitrite (Negative) Urine Bilirubin (Negative) Urine Urobilinogen (<2.0) mg/dL Ur Leukocyte Esterase (Negative) Influenza Type A (PCR) Not Detected (Not Detectd) Influenza Type B (PCR) Not Detected (Not Detectd) RSV (PCR) Not Detected (Not Detectd) SARS-CoV-2 (PCR) Not Detected (Not Detectd) 08/01/22 Range/Units 16:00 WBC (3.8-10.6) k/uL RBC (3.80-5.40) m/uL Hgb (11.4-16.0) gm/dL Hct (34.0-46.0) % MCV (80.0-100.0) fL MCH (25.0-35.0) pg MCHC (31.0-37.0) g/dL RDW (11.5-15.5) % Plt Count (150-450) k/uL MPV Neutrophils % % Lymphocytes % % Monocytes % % Eosinophils % % Basophils % % Neutrophils # (1.3-7.7) k/uL Lymphocytes # (1.0-4.8) k/uL Monocytes # (0-1.0) k/uL Eosinophils # (0-0.7) k/uL Basophils # (0-0.2) k/uL PT (9.0-12.0) sec INR (<1.2) APTT (22.0-30.0) sec Sodium (137-145) mmol/L Potassium (3.5-5.1) mmol/L Chloride (98-107) mmol/L Carbon Dioxide (22-30) mmol/L Anion Gap mmol/L BUN (7-17) mg/dL Creatinine (0.52-1.04) mg/dL Est GFR (CKD-EPI)AfAm (>60 ml/min/1.73 sqM) Est GFR (CKD-EPI)NonAf (>60 ml/min/1.73 sqM) Glucose (74-99) mg/dL Plasma Lactic Acid Orestes (0.7-2.0) mmol/L Calcium (8.4-10.2) mg/dL Total Bilirubin (0.2-1.3) mg/dL AST (14-36) U/L ALT (4-34) U/L Alkaline Phosphatase (38-126) U/L Troponin I (0.000-0.034) ng/mL Total Protein (6.3-8.2) g/dL Albumin (3.5-5.0) g/dL Amylase (30-110) U/L Lipase (23-300) U/L Urine Color Light Yellow Urine Appearance Clear (Clear) Urine pH 7.5 (5.0-8.0) Ur Specific [place] 1.024 (1.001-1.035) Urine Protein Negative (Negative) Urine Glucose (UA) Negative (Negative) Urine Ketones Trace H (Negative) Urine Blood Negative (Negative) Urine Nitrite Negative (Negative) Urine Bilirubin Negative (Negative) Urine Urobilinogen <2.0 (<2.0) mg/dL Ur Leukocyte Esterase Negative (Negative) Influenza Type A (PCR) (Not Detectd) Influenza Type B (PCR) (Not Detectd) RSV (PCR) (Not Detectd) SARS-CoV-2 (PCR) (Not Detectd) - EKG Data EKG Comments: 12-lead Electrocardiogram Interpretation Note EKG was reviewed and interpreted by myself. 12-lead ECG performed at 1434 is interpreted by me as revealing bradycardia at a rate of 50 beats per minute. Jal is normal. FL interval is 108 ms, QRS duration is 94 ms, QTc is 451 ms.. There were no acute ST or T wave abnormalities to suggest myocardial ischemia or injury. R wave progression across the precordium was satisfactory. By my interpretation this EKG is non-diagnostic for acute ischemia. When compared with EKG from September 2018, there is chronic T-wave inversion in lead V2 which is redemonstrated. (Lennox Iraheta) - Radiology Data CT abdomen/pelvis with IV contrast: 1. No acute intra-abdominal or intrapelvic process. 2. Colonic diverticulosis without evidence of diverticulitis. 3. Additional incidental findings as detailed above. (Juve Anna) Disposition <Lennox Iraheta - Last Filed: 08/01/22 15:30> Is patient prescribed a controlled substance at d/c from ED?: No Time of Disposition: 17:05 <Juve Anna - Last Filed: 08/01/22 17:05> Clinical Impression: Nausea and vomiting Disposition: HOME SELF-CARE Condition: Stable Instructions (If sedation given, give patient instructions): Acute Nausea and Vomiting (ED) Additional Instructions: Return to the ER immediately should you develop new or worsening pain, persistent vomiting, a fever, feeling dizzy or faint, shortness of breath, or new or worsening symptoms. Follow up closely with your primary care provider. Referrals: Jaxon Oscar MD [Primary Care Provider] - 1-2 days
--- NOTE | 2022-08-01 15:34 | CT ---
EXAMINATION TYPE: CT abdomen pelvis w con CT DLP: 645.3 mGycm, Automated exposure control for dose reduction was used. DATE OF EXAM: 08/01/2022 3:13 PM COMPARISON: CT chest 06/09/2020 CT abdomen pelvis most recent from CLINICAL INDICATION:Female, 77 years old with history of abdominal pain; abdominal pain, nausea. TECHNIQUE: Axial CT of the abdomen and pelvis. Sagittal and coronal reformats were created on a [employer] workstation. Contrast used:80ml mL of Isovue 300 with IV Contrast, Oral contrast used: without Oral Contrast FINDINGS: LOWER CHEST: Posterior dependent subsegmental atelectasis is noted. ABDOMEN LIVER: Focal fatty infiltration near the gallbladder fossa. Otherwise normal appearance of the liver. GALLBLADDER AND BILE DUCTS: Unremarkable. PANCREAS: Fatty infiltration of the pancreas. SPLEEN: Unremarkable. ADRENAL GLANDS: Unremarkable. KIDNEYS AND URETERS: No evidence of hydronephrosis or renal calculus. The ureters are unremarkable. Subcentimeter bilateral renal hypodensities, statistically renal cysts. PELVIS BLADDER: Unremarkable REPRODUCTIVE: Unremarkable. ABDOMEN & PELVIS STOMACH AND BOWEL: Small hiatal hernia, duodenum is unremarkable. Scattered diverticula are noted thr oughout the colon. No evidence of bowel obstruction. PERITONEUM: No evidence of pneumoperitoneum or free fluid. VASCULATURE: Moderate atherosclerotic calcifications are present throughout the abdominal aorta and i ts branches. No evidence of aortic aneurysm. MUSCULOSKELETAL: No acute osseous abnormalities. Moderate disc degeneration changes are present throu ghout the thoracolumbar spine. Postsurgical fusion hardware from L3 to L5 with intervertebral disc sp acers. Partially visualized thoracic spinal cord stimulator lead. LYMPH NODES: No gross evidence for lymphadenopathy. SOFT TISSUE/ABDOMINAL WALL: Spinal cord stimulator battery pack over the posterior right flank. Soft tissues are otherwise within normal limits. IMPRESSION: 1. No acute intra-abdominal or intrapelvic process. 2. Colonic diverticulosis without evidence for diverticulitis. 3. Additional incidental findings as detailed above.
[2022-08-01 16:39] LABS: Appearance,Urine Clear (Clear); Bilirubin,Urine Negative (Negative); Blood,Urine Negative (Negative); Color,Urine Light Yellow; Glucose,Urine (UA) Negative (Negative); Ketones,Urine Trace (Negative); Leukocyte Esterase,Urine Negative (Negative); Nitrite,Urine Negative (Negative); PH, Urine 7.5 (5.0-8.0); Protein,Urine Negative (Negative); Specific Gravity,Urine 1.024 (1.001-1.035); Urobilinogen,Urine <2.0 mg/dL (<2.0)
[2022-08-01 18:10] VITALS: BP 139/91; PULSE 101; RESP 18; TEMP 98.3
== END 2022-08-01 17:45 | disposition home or self-care (01) ==
LOC: EC 12:43
DX: R11.2 Nausea with vomiting, unspecified (principal); K57.30 Diverticulosis of large intestine without perforation or abscess without bleeding; I48.91 Unspecified atrial fibrillation; I25.10 Atherosclerotic heart disease of native coronary artery without angina pectoris; K21.9 Gastro-esophageal reflux disease without esophagitis; E78.5 Hyperlipidemia, unspecified; Z87.891 Personal history of nicotine dependence; Z20.822 Contact with and (suspected) exposure to COVID-19; Z88.7 Allergy status to serum and vaccine; Z79.899 Other long term (current) drug therapy; Z79.01 Long term (current) use of anticoagulants; Z88.8 Allergy status to other drugs, medicaments and biological substances
CPT/HCPCS: 36415; 93005; 80053; 82150; 83605; 83690; 84484; 85025; 85610; 85730; 81003; 87636; 71046; 74177; 99285; 96374; 96361 ×3; C9113; Q9967

== ENCOUNTER → 2023-06-08 | Outpatient (CLI) | payer MEDICARE ==
--- NOTE | 2023-06-09 08:51 | NM ---
EXAMINATION TYPE: NM DatScan Brain SPECT DATE OF EXAM: 06/08/2023 COMPARISON: NONE HISTORY: Tremors TECHNIQUE: 10 drops of Lugol's solution was administered 1 hour prior to injection as a thyroid bloc alyson agent. After the administration of 4.5 mCi I-123 Ioflupane DaTscan. Images obtained [address] injection. SPECT images of the brain were acquired with axial and coronal reconstructions. FINDINGS: The axial SPECT images demonstrate increased background activity and reduced activity withi n the bilateral striata. Z score analysis performed. IMPRESSION: Abnormal appearance highly suggestive of idiopathic Parkinson's disease or Parkinsonian s yndrome.
== END | disposition home or self-care (01) ==
LOC: RADNMMAIN 10:46
PROVIDERS: ATTEND Family Medicine
DX: R25.1 Tremor, unspecified (principal); R25.9 Unspecified abnormal involuntary movements
CPT/HCPCS: 78803; A9584

== ENCOUNTER 2023-07-09 13:42 | Observation (INO) | payer MEDICARE ==
--- NOTE | 2023-07-09 14:50 | ED ---
Weakness HPI - General Source: patient, RN notes reviewed Mode of arrival: wheelchair Limitations: no limitations <Luis Carlos Luu - Last Filed: 07/09/23 14:49> - General Source: patient, family, RN notes reviewed, old records reviewed <Lennox Iraheta - Last Filed: 07/09/23 23:38> - General Chief complaint: Weakness Stated complaint: Covid+ Time Seen by Provider: 07/09/23 14:49 - History of Present Illness Initial comments: 78-year-old female presents emergency Department with chief complaint of chest pain, weakness. Patient did recently just positive for COVID-19 daughter found her complaining of worsening chest pain. Patient does have significant cardiac history. Patient has a history A. fib, tachycardia, ablation. (Luis Carlos Luu) Patient is an 78-year-old female presents emergency Department complaining of weakness, dehydration for the last week or so. States that shortly after Jeanine she began expressing illness type symptoms. These include cough, nausea, diarrhea, decreased appetite, rhinorrhea. States she coughed and began expressing pain over the left side of her chest as well. This is only present when coughing. Believe she pulled a muscle. Patient's past medical history remarkable for cardiac surgery. Presents for further evaluation at this time. Tested positive for Covid at home this morning. Has a history of A. fib, ablation, tachycardia. Also history of valve repair. (Lennox Iraheta) - Related Data Home Medications Medication Instructions Recorded Confirmed Omeprazole [PriLOSEC] 20 mg PO DAILY 09/19/18 07/09/23 Zolpidem Tartrate [Zolpidem 12.5 mg PO HS PRN 06/18/20 07/09/23 Tartrate ER] Letrozole [Femara] 2.5 mg PO DAILY 11/07/20 07/09/23 Apixaban [Eliquis] 5 mg PO BID 03/14/21 07/09/23 Rosuvastatin Calcium [Crestor] 5 mg PO DAILY 03/14/21 07/09/23 Donepezil [Aricept] 5 mg PO DAILY 08/01/22 07/09/23 dilTIAZem HCL [Tiadylt ER] 240 mg PO DAILY 08/01/22 07/09/23 Alendronate Sodium [Fosamax] 10 mg PO FR 07/09/23 07/09/23 Amiodarone [Cordarone] 200 mg PO Q2D 07/09/23 07/09/23 Gabapentin 600 mg PO TID 07/09/23 07/09/23 Levothyroxine Sodium [Synthroid] 75 mcg PO DAILY 07/09/23 07/09/23 Meloxicam [Mobic] 15 mg PO DAILY 07/09/23 07/09/23 Venlafaxine HCl ER [Effexor Xr] 37.5 mg PO DAILY 07/09/23 07/09/23 Allergies Allergy/AdvReac Type Severity Reaction Status Date / Time Influenza Virus Vaccines AdvReac Severe Rapid Verified 07/09/23 17:44 Heart Rate sertraline [From Zoloft] AdvReac Mild bad dreams Verified 07/09/23 17:44 atenolol AdvReac VERY LOW Verified 07/09/23 17:44 PULSE, LOW BLOOD PRESSURE BETA BLOCKERS AdvReac Intermediate LOW BLOOD Uncoded 07/09/23 17:44 PRESSURE,LOW HEART RATE Review of Systems ROS Other: All systems not noted in ROS Statement are negative. <Luis Carlos Luu - Last Filed: 07/09/23 14:49> ROS Other: All systems not noted in ROS Statement are negative. <Lennox Iraheta - Last Filed: 07/09/23 23:38> ROS Statement: Those systems with pertinent positive or pertinent negative responses have been documented in the HPI. Review of Systems: CONST: Denies fever EYES: Denies blurry vision ENT: Denies nasal congestion C/V: Endorses chest wall pain RESP: Denies shortness of breath GI: Denies abdominal pain : Denies dysuria SKIN: Denies rash. MSK: Denies joint pain. NEURO: Endorses generalized weakness (Lennox Iraheta) Past Medical History Past Medical History: Atrial Fibrillation, Coronary Artery Disease (CAD), Cancer, GERD/Reflux, Hyperlipidemia, Musculoskeletal Disorder, Osteoarthritis (OA), Supraventricular Tachycardia (SVT) Additional Past Medical History / Comment(s): breast ca; aortic valve replacement for aortic stenosis; hx migraine headaches; hx of low HBG; possible GI bleed; hx of kidney stone on xray no tx for it; Has nerve stimulator rt side of back with remote control; neuropathy wil feet; insomnia; History of Any Multi-Drug Resistant Organisms: None Reported Past Surgical History: Back Surgery, Breast Surgery, Cardiac Ablation, Coronary Bypass/CABG, Hysterectomy, Orthopedic Surgery Additional Past Surgical History / Comment(s): LEFT HAND SURGERY; BACK SURGERY X2 (laminectomy and fusion); coronary artery bypass surgery and aortic valve replacement 2015 and repair of a cardiac hole/defect; probably a PFO with a patch; EGD and colonoscopy; sx to remove "black spot on lip" benign; breast bx; wil cataracts; bilateral mastectomy 07/30/20; Past Anesthesia/Blood Transfusion Reactions: Previous Problems w/ Anesthesia Additional Past Anesthesia/Blood Transfusion Reaction / Comment(s): after heart sx "had delirium for 3 days post op" (12 hr surgery, lots of pain and pain meds) states "very hard IV start" Past Psychological History: No Psychological Hx Reported Smoking Status: Former smoker Past Alcohol Use History: None Reported Past Drug Use History: None Reported - Past Family History Mother Family Medical History: Cancer Additional Family Medical History / Comment(s): breast ca Father Family Medical History: Deep Vein Thrombosis (DVT) Additional Family Medical History / Comment(s): embolism, <Luis Carlos Luu - Last Filed: 07/09/23 14:49> General Exam Limitations: no limitations <Luis Carlos Luu - Last Filed: 07/09/23 14:49> <Lennox Iraheta - Last Filed: 07/09/23 23:38> - General Exam Comments Initial Comments: Visual Physical Exam Vital signs reviewed General: Well-appearing, nontoxic, no acute distress. Head: Normocephalic, atraumatic Eyes: PERRLA, EOMI ENT: Airway patent Chest: Nonlabored breathing Skin: No visual rash, normal skin tone Neuro: Alert and oriented 3 Musculoskeletal: No gross abnormalities (Luis Carlos Luu) General: Appears in no acute distress. HEAD: Normal with no signs of head trauma. EYES: PERRLA, EOMI, conjunctiva normal, no discharge. ENT: Hearing grossly intact, normal oropharynx. Dry mucous membranes. RESPIRATORY: Clear breath sounds bilaterally. No wheezes, rales, or rhonchi. C/V: Regular rate and rhythm. S1 and S2 auscultated, peripheral pulses 2+ and intact throughout ABD: Abd is soft, nontender, nondistended EXT: Normal range of motion, no obvious deformity. Reproducible chest wall pain to palpation over the left mid ribs in the anterior axillary line. SKIN: No rashes or lesions observed on exposed skin. NEURO: Alert and oriented 4. (Lennox Iraheta) Course Vital Signs 07/09/23 07/09/23 07/09/23 14:45 15:18 15:19 Temperature 97.7 F 98.0 F Pulse Rate 58 L 49 L Pulse Rate [ 52 L Director Of Event Management ] Respiratory 16 18 Rate Blood Pressure 136/61 143/79 O2 Sat by Pulse 98 98 Oximetry 07/09/23 07/09/23 07/09/23 16:05 17:00 18:30 Temperature 98.4 F Pulse Rate 50 L 51 L 49 L Pulse Rate [ Director Of Event Management ] Respiratory 17 17 17 Rate Blood Pressure 153/70 147/57 135/58 O2 Sat by Pulse 95 96 97 Oximetry 07/09/23 20:00 Temperature 98.4 F Pulse Rate 44 L Pulse Rate [ Director Of Event Management ] Respiratory 18 Rate Blood Pressure 143/55 O2 Sat by Pulse 95 Oximetry Medical Decision Making <Luis Carlos Luu - Last Filed: 07/09/23 14:49> - Lab Data Result diagrams: 07/09/23 15:23 07/09/23 15:23 - EKG Data -: EKG Interpreted by Me <Lennox Iraheta - Last Filed: 07/09/23 23:38> - Medical Decision Making I completed the quick note portion of this chart signed Luis Carlos Luu PA-C (Luis Carlos Luu) Was pt. sent in by a medical professional or institution (, [facility], [facility], urgent care, hospital, or fci...) When possible be specific @ -No Did you speak to anyone other than the patient for history (EMS, parent, family, police, friend...)? What history was obtained from this source @ -No Did you review nursing and triage notes (agree or disagree)? Why? @ -I reviewed and agree with nursing and triage notes Were old charts reviewed (outside hosp., previous admission, EMS record, old EKG, old radiological studies, urgent care reports/EKG's, fci records)? Report findings @ -Old charts reviewed Differential Diagnosis (chest pain, altered mental status, abdominal pain women, abdominal pain men, vaginal bleeding, weakness, fever, dyspnea, syncope, headac he, dizziness, GI bleed, back pain, seizure, CVA, palpatations, mental health, musculoskeletal)? @ -Differential Weakness: Hypoglycemia, shock, sepsis, hyponatremia, anemia, infection, UT, ETOH, adverse medicine reaction, overdose, stroke, this is not meant to be an all-inclusive list. EKG interpreted by me (3pts min.). @ -As above X-rays interpreted by me (1pt min.). @ -Chest x-ray reveals no obvious acute cardiopulmonary process. CT interpreted by me (1pt min.). @ -None done U/S interpreted by me (1pt. min.). @ -None done What testing was considered but not performed or refused? (CT, X-rays, U/S, la bs)? Why? @ -None What meds were considered but not given or refused? Why? @ -None Did you discuss the management of the patient with other professionals (professionals i.e. , PA, [facility], lab, RT, psych nurse, social media strategist, manager technical support, teacher, first officer, pillowcase sewer)? Give summary @ -Spoke with Dr. Parada who accepted the patient.Dr. Oscar is being covered by this group. Was smoking cessation discussed for >3mins.? @ -No Was critical care preformed (if so, how long)? @ -No Were there social determinants of health that impacted care today? How? (Homelessness, low income, unemployed, alcoholism, drug addiction, transportation, low edu. Level, literacy, decrease access to med. care, longterm, rehab)? @ -No Was there de-escalation of care discussed even if they declined (Discuss DNR or withdrawal of care, Hospice)? DNR status @ -No What co-morbidities impacted this encounter? (DM, HTN, Smoking, COPD, CAD, Cancer, CVA, ARF, Chemo, Hep., AIDS, mental health diagnosis, sleep apnea, morbid obesity)? @ -None Was patient admitted / discharged? Hospital course, mention meds given and route , prescriptions, significant lab abnormalities, going to OR and other pertinent info. @ -Based on the patient's presentation and physical exam, patient presents complaining of weakness with recently document a Covid infection. She has been having symptoms for the last week. She does appear clinically dehydrated. Patient will be given IV fluids, IV Zofran, IV Toradol. We will obtain workup including EKG, Covid Swab, chest x-ray. Patient agreement this plan. Patient originally seen as a quick no. Vital signs are within acceptable limits. EKG shows no signs of acute ischemia. Chest x-ray reveals no obvious acute cardio pulmonary process.Patient's laboratory studies unremarkable. Patient is Covid positive. 1+ ketones in urine. At this time I did recommend admission for IV fluid hydration as patient is elderly, has no real support at home. They were in agreement this plan. I spoke with the admitting physician, Dr. Parada who accepted the patient. Dr. Oscar is being covered by this group. Undiagnosed new problem with uncertain prognosis? @ -No Drug Therapy requiring intensive monitoring for toxicity (Heparin, Nitro, Insulin, Cardizem)? @ -No Were any procedures done? @ -No Diagnosis/symptom? @ -COVID-19 infection, dehydration Acute, or Chronic, or Acute on Chronic? @ -Acute Uncomplicated (without systemic symptoms) or Complicated (systemic symptoms)? @ -Complicated Side effects of treatment? @ -none Exacerbation, Progression, or Severe Exacerbation] @ -no Poses a threat to life or bodily function? @ -Yes (Lennox Iraheta) - Lab Data Lab Results 07/09/23 07/09/23 07/09/23 Range/Units 15:23 15:23 15:23 WBC 5.0 (3.8-10.6) k/uL RBC 4.55 (3.80-5.40) m/uL Hgb 13.7 (11.4-16.0) gm/dL Hct 41.1 (34.0-46.0) % MCV 90.3 (80.0-100.0) fL MCH 30.1 (25.0-35.0) pg MCHC 33.3 (31.0-37.0) g/dL RDW 13.3 (11.5-15.5) % Plt Count 122 L (150-450) k/uL MPV 7.9 Neutrophils % 46 % Lymphocytes % 47 % Monocytes % 5 % Eosinophils % 0 % Basophils % 0 % Neutrophils # 2.3 (1.3-7.7) k/uL Lymphocytes # 2.3 (1.0-4.8) k/uL Monocytes # 0.2 (0-1.0) k/uL Eosinophils # 0.0 (0-0.7) k/uL Basophils # 0.0 (0-0.2) k/uL PT 10.7 (10.0-12.5) sec INR 1.0 (<1.2) APTT 26.8 (22.0-30.0) sec Sodium 138 (137-145) mmol/L Potassium 3.6 (3.5-5.1) mmol/L Chloride 103 (98-107) mmol/L Carbon Dioxide 21 L (22-30) mmol/L Anion Gap 14 mmol/L BUN 17 (7-17) mg/dL Creatinine 0.72 (0.52-1.04) mg/dL Est GFR (CKD-EPI)AfAm >90 (>60 ml/min/1.73 sqM) Est GFR (CKD-EPI)NonAf 80 (>60 ml/min/1.73 sqM) Glucose 93 (74-99) mg/dL Calcium 8.8 (8.4-10.2) mg/dL Magnesium 1.9 (1.6-2.3) mg/dL Total Bilirubin 0.7 (0.2-1.3) mg/dL AST 40 H (14-36) U/L ALT 20 (4-34) U/L Alkaline Phosphatase 75 (38-126) U/L Troponin I (0.000-0.034) ng/mL Total Protein 6.9 (6.3-8.2) g/dL Albumin 4.0 (3.5-5.0) g/dL Urine Color Urine Appearance (Clear) Urine pH (5.0-8.0) Ur Specific [place] (1.001-1.035) Urine Protein (Negative) Urine Glucose (UA) (Negative) Urine Ketones (Negative) Urine Blood (Negative) Urine Nitrite (Negative) Urine Bilirubin (Negative) Urine Urobilinogen (<2.0) mg/dL Ur Leukocyte Esterase (Negative) Urine WBC (0-5) /hpf Ur Squamous Epith Cells (0-4) /hpf Influenza Type A (PCR) (Not Detectd) Influenza Type B (PCR) (Not Detectd) RSV (PCR) (Not Detectd) SARS-CoV-2 (PCR) (Not Detectd) 07/09/23 07/09/23 07/09/23 Range/Units 15:23 16:05 17:48 WBC (3.8-10.6) k/uL RBC (3.80-5.40) m/uL Hgb (11.4-16.0) gm/dL Hct (34.0-46.0) % MCV (80.0-100.0) fL MCH (25.0-35.0) pg MCHC (31.0-37.0) g/dL RDW (11.5-15.5) % Plt Count (150-450) k/uL MPV Neutrophils % % Lymphocytes % % Monocytes % % Eosinophils % % Basophils % % Neutrophils # (1.3-7.7) k/uL Lymphocytes # (1.0-4.8) k/uL Monocytes # (0-1.0) k/uL Eosinophils # (0-0.7) k/uL Basophils # (0-0.2) k/uL PT (10.0-12.5) sec INR (<1.2) APTT (22.0-30.0) sec Sodium (137-145) mmol/L Potassium (3.5-5.1) mmol/L Chloride (98-107) mmol/L Carbon Dioxide (22-30) mmol/L Anion Gap mmol/L BUN (7-17) mg/dL Creatinine (0.52-1.04) mg/dL Est GFR (CKD-EPI)AfAm (>60 ml/min/1.73 sqM) Est GFR (CKD-EPI)NonAf (>60 ml/min/1.73 sqM) Glucose (74-99) mg/dL Calcium (8.4-10.2) mg/dL Magnesium (1.6-2.3) mg/dL Total Bilirubin (0.2-1.3) mg/dL AST (14-36) U/L ALT (4-34) U/L Alkaline Phosphatase (38-126) U/L Troponin I <0.012 (0.000-0.034) ng/mL Total Protein (6.3-8.2) g/dL Albumin (3.5-5.0) g/dL Urine Color Light Yellow Urine Appearance Clear (Clear) Urine pH 6.0 (5.0-8.0) Ur Specific [place] 1.006 (1.001-1.035) Urine Protein Negative (Negative) Urine Glucose (UA) Negative (Negative) Urine Ketones 1+ H (Negative) Urine Blood Negative (Negative) Urine Nitrite Negative (Negative) Urine Bilirubin Negative (Negative) Urine Urobilinogen <2.0 (<2.0) mg/dL Ur Leukocyte Esterase Negative (Negative) Urine WBC 1 (0-5) /hpf Ur Squamous Epith Cells <1 (0-4) /hpf Influenza Type A (PCR) Not Detected (Not Detectd) Influenza Type B (PCR) Not Detected (Not Detectd) RSV (PCR) Not Detected (Not Detectd) SARS-CoV-2 (PCR) Detected A (Not Detectd) - EKG Data EKG Comments: 12-lead Electrocardiogram Interpretation Note EKG was reviewed and interpreted by myself. 12-lead ECG performed at 1523 is interpreted by me as revealing sinus bradycardia at a rate of 49 beats per minute. [place] is normal. TX interval is 134 ms, QRS duration is 110 ms, QTc is 10/03/1953 milliseconds. Somewhat chronic T-wave inversion seen in the anterior precordial leads. This is seen in a prior EKG from July 2022.. There were no ST or T wave abnormalities to suggest myocardial ischemia or injury. R wave progression across the precordium was satisfactory. By my interpretation this EKG is non-diagnostic for acute ischemia. (Lennox Iraheta) Disposition <Luis Carlos Luu - Last Filed: 07/09/23 14:49> Time of Disposition: 17:35 <Lennox Iraheta - Last Filed: 07/09/23 23:38> Clinical Impression: COVID-19, Dehydration Disposition: ADMITTED IP TO THIS HOSP Condition: Stable
[2023-07-09 15:46] LABS: Basophils % (A) 0 %; Eosinophils % (A) 0 %; HCT 41.1 % (34.0-46.0); HGB 13.7 gm/dL (11.4-16.0); Lymphocytes # (A) 2.3 k/uL (1.0-4.8); Lymphocytes % (A) 47 %; MCH 30.1 pg (25.0-35.0); MCHC 33.3 g/dL (31.0-37.0); MCV 90.3 fL (80.0-100.0); Mean Platelet Volume 7.9; Monocytes # (A) 0.2 k/uL (0-1.0); Monocytes % (A) 5 %; Neutrophils # (A) 2.3 k/uL (1.3-7.7); Neutrophils % (A) 46 %; Platelet Count 122 k/uL (150-450); RBC 4.55 m/uL (3.80-5.40); RDW 13.3 % (11.5-15.5)
[2023-07-09] MEDS ORDERED: ONDANSETRON 4 MG/2 ML VIAL IVP STA (15:51)
[2023-07-09] MEDS ORDERED: KETOROLAC 15 MG/ML 1 ML VIAL IVP STA (15:51)
[2023-07-09] MEDS ORDERED: SODIUM CHLORIDE 0.9% 1,000 ML IV STA (15:51)
--- NOTE | 2023-07-09 15:54 | XR ---
EXAMINATION TYPE: XR chest 2V DATE OF EXAM: 07/09/2023 Comparison: Chest x-ray August 01, 2022 HISTORY: Chest pain TECHNIQUE: Frontal and lateral views of the chest are obtained. FINDINGS: There is no suspicious for new focal air space opacity, pleural effusion, or pneumothorax seen. The cardiac silhouette size is stable and within normal limits. Overlying sternal wires and me diastinal clips are redemonstrated. Metallic cardiac valve is redemonstrated. Midthoracic spinal stim ulator is seen. IMPRESSION: Chronic changes without acute pulmonary process. No significant change from prior.
[2023-07-09 16:38] LABS: Partial Thromboplastin Time 26.8 sec (22.0-30.0); Prothrombin Time 10.7 sec (10.0-12.5)
[2023-07-09 16:46] LABS: ALT 20 U/L (4-34); AST 40 U/L (14-36); African American GFR (CKD) >90 (>60 ml/min/1.73 sqM); Alkaline Phosphatase 75 U/L (38-126); Anion Gap 14 mmol/L; Blood Urea Nitrogen 17 mg/dL (7-17); Calcium 8.8 mg/dL (8.4-10.2); Carbon Dioxide 21 mmol/L (22-30); Chloride 103 mmol/L (98-107); Glucose 93 mg/dL (74-99); Magnesium 1.9 mg/dL (1.6-2.3); Non-African American GFR(CKD) 80 (>60 ml/min/1.73 sqM); Potassium 3.6 mmol/L (3.5-5.1); Sodium 138 mmol/L (137-145); Total Bilirubin 0.7 mg/dL (0.2-1.3); Total Protein 6.9 g/dL (6.3-8.2)
[2023-07-09 18:14] LABS: Squamous Epithelial Cell,Urine <1 /hpf (0-4); WBC,Urine 1 /hpf (0-5)
[2023-07-09] MEDS ORDERED: NALOXONE 0.4 MG/ML 1 ML VIAL IV PRN (18:29)
[2023-07-09] MEDS ORDERED: IBUPROFEN 400 MG TAB PO PRN (18:29)
[2023-07-09] MEDS ORDERED: ONDANSETRON 4 MG/2 ML VIAL IVP PRN (18:29)
[2023-07-09] MEDS: SODIUM CHLORIDE 0.9% 1,000 ML IV SCH (18:45)
[2023-07-09 19:09] LABS: Appearance,Urine Clear (Clear); Color,Urine Light Yellow; Specific Gravity,Urine 1.006 (1.001-1.035)
[2023-07-09 19:10] LABS: Bilirubin,Urine Negative (Negative); Blood,Urine Negative (Negative); Glucose,Urine (UA) Negative (Negative); Ketones,Urine 1+ (Negative); Protein,Urine Negative (Negative)
[2023-07-09 19:11] LABS: Leukocyte Esterase,Urine Negative (Negative); Nitrite,Urine Negative (Negative); Urobilinogen,Urine <2.0 mg/dL (<2.0)
[2023-07-10 09:23] LABS: Basophils # (A) 0.01 X 10*3/uL (0.00-0.10); Basophils % (A) 0.2 %; Eosinophils # (A) 0.02 X 10*3/uL (0.04-0.35); Eosinophils % (A) 0.4 %; HCT 39.1 % (37.2-46.3); HGB 12.9 g/dL (12.0-15.0); Lymphocytes # (A) 2.74 X 10*3/uL (0.90-5.00); Lymphocytes % (A) 50.5 %; MCH 29.9 pg (27.0-32.0); MCV 90.5 FL (80.0-97.0); Mean Platelet Volume 10.1 FL (9.5-12.2); Monocytes # (A) 0.45 X 10*3/uL (0.20-1.00); Monocytes % (A) 8.3 %; NRBC Per 100 WBC 0 X 10*3/uL (0.00-0.01); Neutrophils % (A) 40.4 %; Platelet Count 122 X 10*3/uL (140-440); RBC 4.32 X 10*6/uL (4.10-5.20); RDW 13.5 % (11.5-14.5); WBC 5.43 X 10*3/uL (4.50-10.00)
[2023-07-10 09:37] LABS: BUN/Creat Ratio 14.25 Ratio (12.00-20.00); Blood Urea Nitrogen 11.4 mg/dL (9.0-27.0); Calcium 8.4 mg/dL (8.7-10.3); Carbon Dioxide 23.9 mmol/L (21.6-31.8); Chloride 106 mmol/L (96-109); Glucose 97 mg/dL (70-110); Potassium 3.5 mmol/L (3.5-5.5); Sodium 142 mmol/L (135-145)
[2023-07-10] MEDS: SODIUM CHLORIDE 0.9% 1,000 ML IV SCH ×2 (10:19→23:12)
[2023-07-10] MEDS ORDERED: PANTOPRAZOLE 40 MG TABLET PO SCH (13:00)
[2023-07-10] MEDS: ATORVASTATIN 10 MG TAB PO SCH (14:51)
[2023-07-10] MEDS: APIXABAN 5 MG TAB PO SCH ×2 (14:51→21:47)
[2023-07-10] MEDS: PANTOPRAZOLE 40 MG/10 ML VIAL IVP SCH (14:51)
[2023-07-10] MEDS: AMIODARONE 200 MG TAB PO SCH (14:52)
--- NOTE | 2023-07-10 14:59 | P.HPIM ---
History of Present Illness H&P Date: 07/10/23 History of present illness; patient is 78-year-old lady with past medical hist ory significant for atrial fibrillation, hypothyroidism, hyperlipidemia who presented to the ER for complaints of generalized weakness and chest pain. Patient stated that after [place] she started having feeling of lethargy and weakness. Patient was having decreased appetite and runny nose. Patient also having nausea and diarrhea. Patient also complaining of cough. Following coughing, patient started having left-sided chest pain which she thinks she could've pulled a muscle. Patient at home checked herself for COVID-19 and found her to be positive. Because of the symptoms, patient came to the ER Initial lab work done in the ER showed WBC 5, hemoglobin 13.7, platelet count 122, sodium 1:30, potassium 3.6, BUN 17, creatinine 0.72 UA negative for infection Influenza A not detected Influenza B not detected RSV not detected COVID-19 detected EKG done in the ER showed heart rate of 49, no ST segment elevation or depression seen, no T-wave inversions seen. Chest x-ray done in the ER showed chronic changes without acute process Patient admitted to internal medicine service REVIEW OF SYSTEMS: CONSTITUTIONAL: As mentioned above HEENT: No recent visual problems or hearing problems. Denied any sore throat. CARDIOVASCULAR: No chest pain, orthopnea, PND, no palpitations, no syncope. PULMONARY: No shortness of breath, no cough, no hemoptysis. GASTROINTESTINAL: As mentioned above NEUROLOGICAL: No headaches, no weakness, no numbness. HEMATOLOGICAL: Denies any bleeding or petechiae. GENITOURINARY: Denies any burning micturition, frequency, or urgency. MUSCULOSKELETAL/RHEUMATOLOGICAL: Denies any joint pain, swelling, or any muscle pain. ENDOCRINE: Denies any polyuria or polydipsia. The rest of the 14-point review of systems is negative. PHYSICAL EXAMINATION: GENERAL: The patient is alert and oriented x3, not in any acute distress. Well developed, well nourished. HEENT: Pupils are round and equally reacting to light. EOMI. No scleral icterus. No conjunctival pallor. Normocephalic, atraumatic. No pharyngeal erythema. No thyromegaly. CARDIOVASCULAR: S1 and S2 present. No murmurs, rubs, or gallops. PULMONARY: Chest is clear to auscultation, no wheezing or crackles. ABDOMEN: Soft, nontender, nondistended, normoactive bowel sounds. No palpable organomegaly. MUSCULOSKELETAL: No joint swelling or deformity. EXTREMITIES: No cyanosis, clubbing, or pedal edema. NEUROLOGICAL: Gross neurological examination did not reveal any focal deficits. SKIN: No rashes. Assessment and plan Dehydration COVID-19 infection Generalized weakness History of atrial fibrillation Hypothyroidism Hyperlipidemia Monitor vital signs Monitor CBC Monitor CMP Continue telemetry monitoring Continue COVID-19 isolation precautions Continue IV fluids Patient at this time does not meet criteria for initiation for treatment for COVID-19 Resume home meds Consult ID Labs and medication were reviewed.. Continue same treatment. Continue with symptomatic treatment. Resume home medication. Monitor labs and vitals. DVT and GI prophylaxis. Further recommendations as per clinical course of the patient Dictation was produced using [employer] dictation software. please excuse any grammatical, word or spelling errors. Past Medical History Past Medical History: Atrial Fibrillation, Coronary Artery Disease (CAD), Cancer, GERD/Reflux, Hyperlipidemia, Musculoskeletal Disorder, Osteoarthritis (OA), Supraventricular Tachycardia (SVT) Additional Past Medical History / Comment(s): breast ca; aortic valve replacement for aortic stenosis; hx migraine headaches; hx of low HBG; possible GI bleed; hx of kidney stone on xray no tx for it; Has nerve stimulator rt side of back with remote control; neuropathy wil feet; insomnia; History of Any Multi-Drug Resistant Organisms: None Reported Past Surgical History: Back Surgery, Breast Surgery, Cardiac Ablation, Coronary Bypass/CABG, Hysterectomy, Orthopedic Surgery Additional Past Surgical History / Comment(s): LEFT HAND SURGERY; BACK SURGERY X2 (laminectomy and fusion); coronary artery bypass surgery and aortic valve replacement 2015 and repair of a cardiac hole/defect; probably a PFO with a patch; EGD and colonoscopy; sx to remove "black spot on lip" benign; breast bx; wil cataracts; bilateral mastectomy 07/30/20; Past Anesthesia/Blood Transfusion Reactions: Previous Problems w/ Anesthesia Additional Past Anesthesia/Blood Transfusion Reaction / Comment(s): after heart sx "had delirium for 3 days post op" (12 hr surgery, lots of pain and pain meds) states "very hard IV start" Past Psychological History: No Psychological Hx Reported Smoking Status: Former smoker Past Alcohol Use History: None Reported Additional Past Alcohol Use History / Comment(s): Quit smoking 1979, started smoking as a teenager. Smoked less than 1 PPD. Past Drug Use History: None Reported - Past Family History Mother Family Medical History: Cancer Additional Family Medical History / Comment(s): breast ca Father Family Medical History: Deep Vein Thrombosis (DVT) Additional Family Medical History / Comment(s): embolism, Medications and Allergies Home Medications Medication Instructions Recorded Confirmed Type Omeprazole [PriLOSEC] 20 mg PO DAILY 09/19/18 07/09/23 History Zolpidem Tartrate [Zolpidem 12.5 mg PO HS PRN 06/18/20 07/09/23 History Tartrate ER] Letrozole [Femara] 2.5 mg PO DAILY 11/07/20 07/09/23 History Apixaban [Eliquis] 5 mg PO BID 03/14/21 07/09/23 History Rosuvastatin Calcium [Crestor] 5 mg PO DAILY 03/14/21 07/09/23 History Donepezil [Aricept] 5 mg PO DAILY 08/01/22 07/09/23 History dilTIAZem HCL [Tiadylt ER] 240 mg PO DAILY 08/01/22 07/09/23 History Alendronate Sodium [Fosamax] 10 mg PO FR 07/09/23 07/09/23 History Amiodarone [Cordarone] 200 mg PO Q2D 07/09/23 07/09/23 History Gabapentin 600 mg PO TID 07/09/23 07/09/23 History Levothyroxine Sodium [Synthroid] 75 mcg PO DAILY 07/09/23 07/09/23 History Meloxicam [Mobic] 15 mg PO DAILY 07/09/23 07/09/23 History Venlafaxine HCl ER [Effexor Xr] 37.5 mg PO DAILY 07/09/23 07/09/23 History Allergies Allergy/AdvReac Type Severity Reaction Status Date / Time Influenza Virus Vaccines AdvReac Severe Rapid Verified 07/09/23 17:44 Heart Rate sertraline [From Zoloft] AdvReac Mild bad dreams Verified 07/09/23 17:44 atenolol AdvReac VERY LOW Verified 07/09/23 17:44 PULSE, LOW BLOOD PRESSURE BETA BLOCKERS AdvReac Intermediate LOW BLOOD Uncoded 07/09/23 17:44 PRESSURE,LOW HEART RATE Physical Exam Vitals: Vital Signs Temp Pulse Pulse Pulse Resp BP BP 07/10/23 12:02 07/10/23 07:00 98.5 F 51 L 20 156/75 07/10/23 03:32 97.9 F 79 18 145/76 07/09/23 20:20 97.9 F 60 18 177/66 07/09/23 20:00 98.4 F 44 L 18 143/55 07/09/23 18:30 98.4 F 49 L 17 135/58 07/09/23 17:00 51 L 17 147/57 07/09/23 16:05 50 L 17 153/70 07/09/23 15:19 52 L 07/09/23 15:18 98.0 F 49 L 18 143/79 07/09/23 14:45 97.7 F 58 L 16 136/61 Pulse Ox 07/10/23 12:02 96 07/10/23 07:00 94 L 07/10/23 03:32 96 07/09/23 20:20 96 07/09/23 20:00 95 07/09/23 18:30 97 07/09/23 17:00 96 07/09/23 16:05 95 07/09/23 15:19 07/09/23 15:18 98 07/09/23 14:45 98 Intake and Output 07/09/23 07/10/23 07/10/23 22:59 06:59 14:59 Other: Voiding Method Toilet Toilet # Voids 1 2 Weight 72.121 kg Results CBC & Chem 7: 07/10/23 05:29 07/10/23 05:29 Labs: Abnormal Lab Results - Last 24 Hours (Table) 07/09/23 07/09/23 07/09/23 Range/Units 15:23 15:23 16:05 Plt Count 122 L (150-450) k/uL Eosinophils # (0.04-0.35) X 10*3/uL Carbon Dioxide 21 L (22-30) mmol/L Anion Gap (4.00-12.00) mmol/L Calcium (8.7-10.3) mg/dL AST 40 H (14-36) U/L Urine Ketones (Negative) SARS-CoV-2 (PCR) Detected A (Not Detectd) 07/09/23 07/10/23 07/10/23 Range/Units 17:48 05:29 05:29 Plt Count 122 L (150-450) k/uL Eosinophils # 0.02 L (0.04-0.35) X 10*3/uL Carbon Dioxide (22-30) mmol/L Anion Gap 12.10 H (4.00-12.00) mmol/L Calcium 8.4 L (8.7-10.3) mg/dL AST (14-36) U/L Urine Ketones 1+ H (Negative) SARS-CoV-2 (PCR) (Not Detectd)
[2023-07-10] MEDS: GABAPENTIN 300 MG CAP PO SCH ×2 (15:16→21:47)
[2023-07-10] MEDS: MAG HYDROX/AL HYDROX/SIMETH 30 ML CUP PO SCH ×2 (15:17→21:47)
[2023-07-10] MEDS: ZOLPIDEM 5 MG TAB PO PRN (21:47)
[2023-07-11] MEDS: LEVOTHYROXINE 75 MCG TAB PO SCH (06:29)
--- NOTE | 2023-07-11 07:57 | P.CONS ---
History of Present Illness - Reason for Consult Consult date: 07/10/23 - History of Present Illness Patient is a 78-year-old female with a past medical history for atrial fibrillation coronary artery disease hypertension hyperlipidemia patient presenting to the ER complaining of chest pain and weakness in this patient who recently tested positive for COVID-19 with a home test patient has been complaining of generalized weakness symptom has been getting worse for about a week started shortly after [place] and did have some URI symptoms patient also have a cough mild in intensity no sputum production did have decrease oral intake nasal congestion some nausea and the patient started having some left- sided chest pain that concerned her and the patient was brought into the hos pital pain was moderate in intensity without radiation denies any purulent sputum on presentation to the hospital the patient was afebrile no fever has been recorded subsequently patient was not tachycardic hypotensive or hypoxic, patient did have white count of 5.0 creatinine 0.72 UA has been negative tested positive for COVID chest x-ray chronic changes without acute pulmonary process patient was admitted to hospital infectious disease was consulted for further management of her COVID-19 infection Past Medical History Past Medical History: Atrial Fibrillation, Coronary Artery Disease (CAD), Cancer, GERD/Reflux, Hyperlipidemia, Musculoskeletal Disorder, Osteoarthritis (OA), Supraventricular Tachycardia (SVT) Additional Past Medical History / Comment(s): breast ca; aortic valve replacement for aortic stenosis; hx migraine headaches; hx of low HBG; possible GI bleed; hx of kidney stone on xray no tx for it; Has nerve stimulator rt side of back with remote control; neuropathy wil feet; insomnia; History of Any Multi-Drug Resistant Organisms: None Reported Past Surgical History: Back Surgery, Breast Surgery, Cardiac Ablation, Coronary Bypass/CABG, Hysterectomy, Orthopedic Surgery Additional Past Surgical History / Comment(s): LEFT HAND SURGERY; BACK SURGERY X2 (laminectomy and fusion); coronary artery bypass surgery and aortic valve replacement 2015 and repair of a cardiac hole/defect; probably a PFO with a patch; EGD and colonoscopy; sx to remove "black spot on lip" benign; breast bx; wil cataracts; bilateral mastectomy 07/30/20; Past Anesthesia/Blood Transfusion Reactions: Previous Problems w/ Anesthesia Additional Past Anesthesia/Blood Transfusion Reaction / Comm: after heart sx "h ad delirium for 3 days post op" (12 hr surgery, lots of pain and pain meds) states "very hard IV start" Past Psychological History: No Psychological Hx Reported Smoking Status: Former smoker Past Alcohol Use History: None Reported Additional Past Alcohol Use History / Comment(s): Quit smoking 1979, started smoking as a teenager. Smoked less than 1 PPD. Past Drug Use History: None Reported - Past Family History Mother Family Medical History: Cancer Additional Family Medical History / Comment(s): breast ca Father Family Medical History: Deep Vein Thrombosis (DVT) Additional Family Medical History / Comment(s): embolism, Medications and Allergies Home Medications Medication Instructions Recorded Confirmed Type RX: Omeprazole [PriLOSEC] 20 mg PO DAILY 09/19/18 07/09/23 History RX: Zolpidem Tartrate [Zolpidem 12.5 mg PO HS PRN 06/18/20 07/09/23 History Tartrate ER] Letrozole [Femara] 2.5 mg PO DAILY 11/07/20 07/09/23 History Apixaban [Eliquis] 5 mg PO BID 03/14/21 07/09/23 History Rosuvastatin Calcium [Crestor] 5 mg PO DAILY 03/14/21 07/09/23 History Donepezil [Aricept] 5 mg PO DAILY 08/01/22 07/09/23 History dilTIAZem HCL [Tiadylt ER] 240 mg PO DAILY 08/01/22 07/09/23 History Alendronate Sodium [Fosamax] 10 mg PO FR 07/09/23 07/09/23 History Amiodarone [Cordarone] 200 mg PO Q2D 07/09/23 07/09/23 History Levothyroxine Sodium [Synthroid] 75 mcg PO DAILY 07/09/23 07/09/23 History Meloxicam [Mobic] 15 mg PO DAILY 07/09/23 07/09/23 History RX: Gabapentin 600 mg PO TID 07/09/23 07/09/23 History Venlafaxine HCl ER [Effexor Xr] 37.5 mg PO DAILY 07/09/23 07/09/23 History Allergies Allergy/AdvReac Type Severity Reaction Status Date / Time Influenza Virus Vaccines AdvReac Severe Rapid Verified 07/09/23 17:44 Heart Rate sertraline [From Zoloft] AdvReac Mild bad dreams Verified 07/09/23 17:44 atenolol AdvReac VERY LOW Verified 07/09/23 17:44 PULSE, LOW BLOOD PRESSURE BETA BLOCKERS AdvReac Intermediate LOW BLOOD Uncoded 07/09/23 17:44 PRESSURE,LOW HEART RATE Physical Exam Vitals: Vital Signs Temp Pulse Pulse Resp BP Pulse Ox 07/10/23 15:00 98.2 F 52 L 21 159/53 94 L 07/10/23 12:02 96 07/10/23 07:00 98.5 F 51 L 20 156/75 94 L 07/10/23 03:32 97.9 F 79 18 145/76 96 07/09/23 20:20 97.9 F 60 18 177/66 96 Intake and Output 07/10/23 07/10/23 07/10/23 06:59 14:59 22:59 Other: Voiding Method Toilet # Voids 2 3 Results CBC & Chem 7: 07/10/23 05:29 07/10/23 05:29 Labs: Abnormal Lab Results - Last 24 Hours (Table) 07/10/23 07/10/23 Range/Units 05:29 05:29 Plt Count 122 L (140-440) X 10*3/uL Eosinophils # 0.02 L (0.04-0.35) X 10*3/uL Anion Gap 12.10 H (4.00-12.00) mmol/L Calcium 8.4 L (8.7-10.3) mg/dL Assessment and Plan Plan: 1patient presented to hospital with generalized weakness did have some URI symptoms cough but no sputum production patient currently not on any fever patient not hypoxic or need for supplemental oxygen chest x-ray was negative for acute infiltrate more likely mild COVID-19 and less without evidence for pneumonia antigen will be mostly supportive. 2patient to continue with Eliquis add zinc and ascorbic acid, no need for remdesivir or steroids 3-droplet isolation We will follow on clinical condition and cultures to further adjust medication if needed Thank you for this consultation we will follow the patient along with you Dictation was produced using [employer] dictation software. please excuse any grammatical, word or spelling errors. Time with Patient: Greater than 30
[2023-07-11] MEDS: APIXABAN 5 MG TAB PO SCH ×2 (10:05→20:20)
[2023-07-11] MEDS: PANTOPRAZOLE 40 MG/10 ML VIAL IVP SCH (10:06)
[2023-07-11] MEDS: ATORVASTATIN 10 MG TAB PO SCH (10:06)
[2023-07-11] MEDS: GABAPENTIN 300 MG CAP PO SCH ×3 (10:06→20:20)
[2023-07-11] MEDS: ASCORBIC ACID 500 MG TAB PO SCH (10:06)
[2023-07-11] MEDS: ZINC SULFATE 220 MG CAP PO SCH (10:07)
[2023-07-11] MEDS: DONEPEZIL 5 MG TAB PO SCH (10:08)
[2023-07-11] MEDS: DILTIAZEM CD 240 MG CAP.ER.24H PO SCH (10:08)
[2023-07-11] MEDS: VENLAFAXINE HCL ER 37.5 MG CAP PO SCH (10:08)
[2023-07-11] MEDS: SODIUM CHLORIDE 0.9% 1,000 ML IV SCH (10:30)
[2023-07-11] MEDS: MAG HYDROX/AL HYDROX/SIMETH 30 ML CUP PO SCH ×4 (11:16→20:20)
--- NOTE | 2023-07-11 16:12 | P.PN ---
Subjective Progress Note Date: 07/11/23 patient is 78-year-old lady with past medical history significant for atrial fibrillation, hypothyroidism, hyperlipidemia who presented to the ER for complaints of generalized weakness and chest pain. Patient stated that after [place] she started having feeling of lethargy and weakness. Patient was having decreased appetite and runny nose. Patient also having nausea and diarrhea. Patient also complaining of cough. Following coughing, patient started having left-sided chest pain which she thinks she could've pulled a muscle. Patient at home checked herself for COVID-19 and found her to be positive. Because of the symptoms, patient came to the ER Initial lab work done in the ER showed WBC 5, hemoglobin 13.7, platelet count 122, sodium 1:30, potassium 3.6, BUN 17, creatinine 0.72 UA negative for infection Influenza A not detected Influenza B not detected RSV not detected COVID-19 detected EKG done in the ER showed heart rate of 49, no ST segment elevation or depres giovanni seen, no T-wave inversions seen. Chest x-ray done in the ER showed chronic changes without acute process Patient admitted to internal medicine service 07/11. Patient seen and examined. Still complaining of abdominal discomfort. Denies any nausea or vomiting. Tolerating diet. REVIEW OF SYSTEMS: CONSTITUTIONAL: No fever, no malaise,. CARDIOVASCULAR: No chest pain, no palpitations, no syncope. PULMONARY: No shortness of breath, no cough, GASTROINTESTINAL: As mentioned above NEUROLOGICAL: No headaches, no weakness, PHYSICAL EXAMINATION: GENERAL: The patient is alert and oriented x3, not in any acute distress. Well developed, well nourished. HEENT: Pupils are round and equally reacting to light. EOMI. No scleral icterus. No conjunctival pallor. Normocephalic, atraumatic. No pharyngeal erythema. No thyromegaly. CARDIOVASCULAR: S1 and S2 present. No murmurs, rubs, or gallops. PULMONARY: Chest is clear to auscultation, no wheezing or crackles. ABDOMEN: Soft, nontender, nondistended, normoactive bowel sounds. No palpable organomegaly. MUSCULOSKELETAL: No joint swelling or deformity. EXTREMITIES: No cyanosis, clubbing, or pedal edema. NEUROLOGICAL: Gross neurological examination did not reveal any focal deficits. SKIN: No rashes. Assessment and plan Dehydration COVID-19 infection Generalized weakness History of atrial fibrillation Hypothyroidism Hyperlipidemia Monitor vital signs Monitor CBC Monitor CMP Continue COVID-19 isolation precautions Continue IV fluids Patient at this time does not meet criteria for initiation for treatment for COVID-19 Continue home meds ID following Labs and medication were reviewed.. Continue same treatment. Continue with symptomatic treatment. Resume home medication. Monitor labs and vitals. DVT and GI prophylaxis. Further recommendations as per clinical course of the patient Dictation was produced using [employer] dictation software. please excuse any grammatical, word or spelling errors. Objective - Vital Signs Vital signs: Vital Signs Temp 98.1 F 07/11/23 15:00 Pulse 50 L 07/11/23 15:00 Resp 21 07/11/23 15:00 BP 129/50 07/11/23 15:00 Pulse Ox 96 07/11/23 15:00 FiO2 Intake & Output 07/10/23 07/11/23 07/11/23 18:59 06:59 18:59 Intake Total 500 Output Total 200 Balance -200 500 Intake: Oral 500 Output: Urine 200 Other: Voiding Method Toilet Toilet # Voids 3 2 3 - Labs CBC & Chem 7: 07/10/23 05:29 07/10/23 05:29
[2023-07-11] MEDS: ZOLPIDEM 5 MG TAB PO PRN (20:20)
[2023-07-12] MEDS: SODIUM CHLORIDE 0.9% 1,000 ML IV SCH (01:34)
[2023-07-12] MEDS: LEVOTHYROXINE 75 MCG TAB PO SCH (05:24)
[2023-07-12 08:43] VITALS: BP 115/66; PULSE 53; RESP 15; TEMP 97.8
[2023-07-12] MEDS: ZINC SULFATE 220 MG CAP PO SCH (09:08)
[2023-07-12] MEDS: ASCORBIC ACID 500 MG TAB PO SCH (09:08)
[2023-07-12] MEDS: MAG HYDROX/AL HYDROX/SIMETH 30 ML CUP PO SCH ×2 (09:08→12:40)
[2023-07-12] MEDS: APIXABAN 5 MG TAB PO SCH (09:08)
[2023-07-12] MEDS: ATORVASTATIN 10 MG TAB PO SCH (09:08)
[2023-07-12] MEDS: DONEPEZIL 5 MG TAB PO SCH (09:08)
[2023-07-12] MEDS: GABAPENTIN 300 MG CAP PO SCH (09:08)
[2023-07-12] MEDS: DILTIAZEM CD 240 MG CAP.ER.24H PO SCH (09:09)
[2023-07-12] MEDS: VENLAFAXINE HCL ER 37.5 MG CAP PO SCH (09:09)
[2023-07-12] MEDS: PANTOPRAZOLE 40 MG/10 ML VIAL IVP SCH (09:10)
[2023-07-12] MEDS: AMIODARONE 200 MG TAB PO SCH (12:39)
--- NOTE | 2023-07-14 10:29 | P.DS ---
Providers Date of admission: 07/09/23 18:29 Expected date of discharge: 07/12/23 Attending physician: Jaxon Oscar MD Consults: 07/10/23 12:45 Consult Physician Routine Consulting Provider: Lai Boone Consult Reason/Comments: COVID-19 infection Do you want consulting provider notified?: Yes Primary care physician: Mallory Oscar Hospital Course: Final Diagnoses: Acute COVID-19 infection Dehydration secondary to the above Generalized weakness secondary to the above Chronic atrial fibrillation, anticoagulated on Eliquis Hypothyroidism Hyperlipidemia Hospital course: This is an 78-year-old female admitted with acute COVID-19 infection accompanied by nonproductive cough, dehydration, generalized weakness, nausea and diarrhea .Did not require supplemental O2 evaluated by infectious disease.maintained on Covid cocktail. Significant clinical improvement. Afebrile, maintaining O2 sats in the high 90s on room air. Ambulating in room, tolerating exertion well. Denies lightheadedness, dizziness or focal deficits. Denies chest pain, palpitations or shortness of breath. Tolerating diet, consuming 75%-100 %, denies nausea vomiting or diarrhea. Denies abdominal pain. Significant clinical improvement. Patient will be discharged home today in stable condition with fair prognosis pending final DC recommendations and clearance per infectious disease. The impression and plan of care has been dictated as directed. : I performed a history and examination of this patient, discussed the same with the dictator. I agree with the dictator's note ,documented as a scribe. Any additional findings or plans will be noted. Patient Condition at Discharge: Stable Plan - Discharge Summary New Discharge Prescriptions: New Zinc Sulfate [Orazinc] 220 mg PO DAILY #30 cap Ascorbic Acid [Vitamin C] 500 mg PO BID #60 tablet Continue Omeprazole [PriLOSEC] 20 mg PO DAILY Zolpidem Tartrate [Zolpidem Tartrate ER] 12.5 mg PO HS PRN PRN Reason: Insomnia Letrozole [Femara] 2.5 mg PO DAILY Rosuvastatin Calcium [Crestor] 5 mg PO DAILY Donepezil [Aricept] 5 mg PO DAILY Venlafaxine HCl ER [Effexor XR] 37.5 mg PO DAILY Levothyroxine Sodium [Synthroid] 75 mcg PO DAILY Amiodarone [Cordarone] 200 mg PO Q2D Gabapentin 600 mg PO TID Apixaban [Eliquis] 5 mg PO BID dilTIAZem HCL [Tiadylt ER] 240 mg PO DAILY Alendronate Sodium [Fosamax] 10 mg PO FR Meloxicam [Mobic] 15 mg PO DAILY Discharge Medication List Omeprazole [PriLOSEC] 20 mg PO DAILY 09/19/18 [History] Zolpidem Tartrate [Zolpidem Tartrate ER] 12.5 mg PO HS PRN 06/18/20 [History] Letrozole [Femara] 2.5 mg PO DAILY 11/07/20 [History] Apixaban [Eliquis] 5 mg PO BID 03/14/21 [History] Rosuvastatin Calcium [Crestor] 5 mg PO DAILY 03/14/21 [History] Donepezil [Aricept] 5 mg PO DAILY 08/01/22 [History] dilTIAZem HCL [Tiadylt ER] 240 mg PO DAILY 08/01/22 [History] Alendronate Sodium [Fosamax] 10 mg PO FR 07/09/23 [History] Amiodarone [Cordarone] 200 mg PO Q2D 07/09/23 [History] Gabapentin 600 mg PO TID 07/09/23 [History] Levothyroxine Sodium [Synthroid] 75 mcg PO DAILY 07/09/23 [History] Meloxicam [Mobic] 15 mg PO DAILY 07/09/23 [History] Venlafaxine HCl ER [Effexor XR] 37.5 mg PO DAILY 07/09/23 [History] Ascorbic Acid [Vitamin C] 500 mg PO BID #60 tablet 07/12/23 [Rx] Zinc Sulfate [Orazinc] 220 mg PO DAILY #30 cap 07/12/23 [Rx] Follow up Appointment(s)/Referral(s): Mallory Oscar DO [Primary Care Provider] - 3 Days Patient Instructions/Handouts: COVID-19 (Coronavirus Disease 2019) (DC), Face Coverings (Masks) and COVID-19 (DC) Activity/Diet/Wound Care/Special Instructions: FOLLOW UP DIRECTED, SOONER FOR WORSENING SYMPTOMS, PROBLEMS OR CONCERS. Discharge Disposition: HOME SELF-CARE
[2023-07-16] MEDS ORDERED: ALENDRONATE SODIUM 10 MG PO SCH (12:40)
== END 2023-07-12 13:10 | disposition home or self-care (01) ==
LOC: EC 13:42 → 6NMEDSUR 18:29
PROVIDERS: ADMIT Family Medicine; ATTEND Family Medicine
DX: U07.1 COVID-19 (principal); E86.0 Dehydration; R53.1 Weakness; I48.20 Chronic atrial fibrillation, unspecified; E03.9 Hypothyroidism, unspecified; E78.5 Hyperlipidemia, unspecified; I25.10 Atherosclerotic heart disease of native coronary artery without angina pectoris; K21.9 Gastro-esophageal reflux disease without esophagitis; G62.9 Polyneuropathy, unspecified; I10 Essential (primary) hypertension; Z87.891 Personal history of nicotine dependence; Z95.1 Presence of aortocoronary bypass graft; Z95.2 Presence of prosthetic heart valve; Z79.01 Long term (current) use of anticoagulants; Z79.83 Long term (current) use of bisphosphonates; Z79.890 Hormone replacement therapy; Z79.1 Long term (current) use of non-steroidal anti-inflammatories (NSAID); Z79.899 Other long term (current) drug therapy
CPT/HCPCS: 96376 ×2; 96361 ×3; 96375 ×2; 96374; 99285; 36415; 94760 ×2; 93005; 80053; 80048; 83735; 84484; 85025 ×2; 85610; 85730; 81003; 87636; 71046; G0378 ×4; J2405; J1885; C9113 ×3

== ENCOUNTER → 2023-08-02 | Outpatient (CLI) | payer MEDICARE ==
[2023-08-02 15:24] LABS: African American GFR (CKD) 56 (>60 ml/min/1.73 sqM); Blood Urea Nitrogen 16 mg/dL (7-17); Non-African American GFR(CKD) 48 (>60 ml/min/1.73 sqM)
--- NOTE | 2023-08-02 17:03 | CT ---
EXAMINATION TYPE: CT abdomen pelvis w con DATE OF EXAM: 08/02/2023 COMPARISON: 08/01/2022 HISTORY: abdominal pain CT DLP: 974 mGycm CONTRAST: CT scan of the abdomen and pelvis is performed with Oral Contrast and with IV Contrast, patient injec denise with 80 mL of Isovue 300. FINDINGS: LUNG BASES-: No visible nodule. No infiltrate. Small hiatal hernia noted. LIVER/GB: No calcified gallstones. No space occupying hepatic lesion. Biliary tree is of normal ca liber. PANCREAS: No inflammation. No distinct mass. SPLEEN: No splenic enlargement. No lesion seen. ADRENALS: No nodule. No thickening. KIDNEYS/BLADDER: No hydronephrosis. No nephrolithiasis. Simple cyst 1.3 cm cyst upper pole left kid gigi. No solid renal masses seen. Compressed urinary bladder limiting evaluation. BOWEL: Normal appendix. Normal bowel caliber. No inflammation. Diverticulosis without diverticuliti s. GENITAL ORGANS: No gross abnormality. LYMPH NODES: No greater than 1cm abdominal or pelvic lymph nodes are appreciated. AORTA: No significant abnormality. OSSEOUS STRUCTURES: There are multilevel degenerative disc disease lumbar spine postoperative decompr essive laminectomy. OTHER: No significant additional abnormality is seen. IMPRESSION: 1. No acute intra-abdominal or intrapelvic process seen at this time.
== END | disposition home or self-care (01) ==
LOC: RADCTMAIN 14:37
PROVIDERS: ATTEND Family Medicine
DX: K59.00 Constipation, unspecified (principal); E86.0 Dehydration; R11.0 Nausea; R10.9 Unspecified abdominal pain
CPT/HCPCS: 82565; 84520; 74177; 36415; Q9967

== ENCOUNTER → 2024-05-10 | Outpatient (CLI) | payer MEDICARE ==
[2024-05-10 13:00] LABS: African American GFR (CKD) 78 (>60 ml/min/1.73 sqM); Blood Urea Nitrogen 12 mg/dL (7-17); Non-African American GFR(CKD) 67 (>60 ml/min/1.73 sqM)
--- NOTE | 2024-05-10 14:51 | CT ---
EXAMINATION TYPE: CT ChestAbdPelvis w con DATE OF EXAM: 05/10/2024 2:21 PM COMPARISON: 08/02/2023.. CLINICAL INDICATION: Female, 79 years old with history of C50.411 BREAST CX, Z03.89 OBSERVATION FOR S USPECTED METS; PHH, breast ca, pt has increased back and hip pain r/o mets Technique: CT ChestAbdPelvis w con; Multiple axial images were obtained. Two-dimensional coronal and sagittal reconstructions were obtained. Contrast used:100 mL of Isovue 370 with IV Contrast, (None if empty) Oral contrast used: with Oral Contrast CT DLP: 492.5 mGycm, Automated exposure control for dose reduction was used. Findings: CHEST: LUNGS/ PLEURA: Azygous fissure in the right upper lung. No focal consolidation, pneumothorax or pleur al effusion. Streaky scarring/atelectasis in the lingula and right middle lobe. Stable left lower lob e 2 mm pulmonary nodule series 7 image 29. AIRWAY: Patent and unremarkable. HEART:. Aortic valve repair changes with mild cardiomegaly. MEDIASTINUM: No gross evidence of adenopathy. VASCULATURE: No aortic aneurysm. The left internal jugular vein communicates with the right ventricl e. MUSCULOSKELETAL: No acute osseous abnormalities. SOFT TISSUES/LYMPH NODES: Unremarkable. LOWER NECK: No significant findings. ABDOMEN: ABDOMEN LIVER: Unremarkable GALLBLADDER AND BILE DUCTS: Unremarkable. PANCREAS: Unremarkable. SPLEEN: Unremarkable. ADRENAL GLANDS: Unremarkable. KIDNEYS AND URETERS: No evidence of hydronephrosis or renal calculus. The ureters are unremarkable. PELVIS BLADDER: Unremarkable REPRODUCTIVE: The uterus is surgically absent. ABDOMEN & PELVIS STOMACH AND BOWEL: No evidence of bowel obstruction. Scattered colonic diverticula. PERITONEUM/RETROPERITONEUM: No evidence of pneumoperitoneum or free fluid. VASCULATURE: No evidence of aortic aneurysm. MUSCULOSKELETAL: No acute osseous abnormalities, post fixation changes to the spine hardware appears intact. No stimulator lead, probable vertebral body hemangioma in T12 vertebral body. Mild degenerati on changes of the hips with subchondral cystic change and osteophyte formation. LYMPH NODES: No gross evidence for lymphadenopathy. SOFT TISSUE/ABDOMINAL WALL: There are stimulator device terminates in the spine. There is severe dege neration changes at the superior margin of the fixation levels at L2-L3 and L5-S1. Fat-containing umbilical hernia. IMPRESSION: 1. No evidence of fracture within the spine or hips. . 2. No evidence for lymphadenopathy or finding to suggest metastatic disease at this time. 3. Aortic valvular repair changes. 4. 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 5. Scattered colonic diverticulosis. 6. Stable left lower lobe 2 mm pulmonary nodule. [facility], Workstation: [id number], 05/10/2024 2:48 PM
== END | disposition home or self-care (01) ==
LOC: RADCTMAIN 12:07
PROVIDERS: ATTEND Internal Medicine Hematology & Oncology
DX: Z03.89 Encounter for observation for other suspected diseases and conditions ruled out (principal); C50.411 Malignant neoplasm of upper-outer quadrant of right female breast; K57.30 Diverticulosis of large intestine without perforation or abscess without bleeding; R91.1 Solitary pulmonary nodule; Z95.2 Presence of prosthetic heart valve
CPT/HCPCS: 82565; 84520; 71260; 74177; 36415; Q9967

== ENCOUNTER → 2024-05-15 | Outpatient (CLI) | payer MEDICARE ==
--- NOTE | 2024-05-16 17:19 | CT ---
EXAMINATION TYPE: CT lumbar spine wo con CT DLP: 375.7 mGycm, Automated exposure control for dose reduction was used. DATE OF EXAM: 05/15/2024 3:30 PM COMPARISON: Nuclear medicine bone scan 05/16/2024, CT chest abdomen pelvis 05/10/2024, CT lumbar spine 12/14/2016, MR lumbar spine 11/12/2016. CLINICAL INDICATION:Female, 79 years old with history of M47.816 SPONDYLOSIS M54.51 M54.16 M43.17 M41 .86; PHH, Lower back and leg pain x years. TECHNIQUE: Multiple axial images were obtained from the midportion of T11 through the sacroiliac alexei nts. Soft tissue and bone windows in coronal and sagittal planes were obtained and reviewed. 3-D ref ormats of the bones were created on a separate workstation and submitted for review. Contrast used: none. Oral contrast used: none. FINDINGS: Alignment: There are 5 lumbar type vertebral bodies. Levocurvature of the lumbar spine with apex at L 3-L4. Moderate prosthesis of L2 on L3. Bone: Postsurgical changes from posterior fusion involving L3-L5. There are bilateral pedicular scre ws and rods at L3 and L5 with single right-sided radicular screw at L4. Hardware appears intact with appropriate alignment. Hardware creates streak artifact which limits evaluation. Diffuse bone deminer alization. No evidence of fracture is identified. Benign vertebral hemangioma involving the T12 verte bral body. Multilevel endplate sclerosis and anterior osteophytosis. Discs: Multilevel disc space narrowing with subchondral cystic formation and vacuum disc disease. T12-L1: No spinal canal or neural foraminal stenosis is identified. L1-L2: Broad-based disc bulge without significant effacement of the anterior thecal sac. No significa nt neural foraminal stenosis. L2-L3: Mild retrolisthesis. Bilateral facet arthropathy. Prominent right-sided ligamenta flavum buckl ing. Mild central canal stenosis. Mild to moderate bilateral neuroforaminal stenosis. L3-L4: Postsurgical changes without gross evidence of significant central canal or neuroforaminal beni nosis. L4-L5: Postsurgical changes without gross evidence of significant central canal or neuroforaminal beni nosis. L5-S1: Broad-based disc bulge with ligamentum flavum buckling and bilateral facet arthropathy contrib [place] to mild central canal stenosis. Moderate bilateral neural foraminal stenosis. Other: Atherosclerotic calcification of the aorta and its branches. Descending colon diverticulosis. Right gluteal stimulator lead device with leads coursing superiorly within the right back soft tissue s. IMPRESSION: 1. No evidence for acute spinal fracture. 2. Postsurgical changes from posterior fusion L3-L5. Hardware appears intact with stable alignment. 3. Moderate multilevel degenerative disc disease most pronounced at L5-S1 and L2-L3 as described abov e. 4. Similar mild retrolisthesis of L2 on L3 with mild levocurvature of the lumbar spine. [facility], , 05/16/2024 5:17 PM
== END | disposition home or self-care (01) ==
LOC: RADCTMAIN 14:45
PROVIDERS: ATTEND Physical Medicine & Rehabilitation
DX: M51.371 Other intervertebral disc degeneration, lumbosacral region with lower extremity pain only (principal); M47.26 Other spondylosis with radiculopathy, lumbar region; M43.17 Spondylolisthesis, lumbosacral region; M41.86 Other forms of scoliosis, lumbar region; Z98.1 Arthrodesis status
CPT/HCPCS: 72131

== ENCOUNTER → 2024-05-16 | Outpatient (CLI) | payer MEDICARE ==
--- NOTE | 2024-05-16 16:32 | NM ---
EXAMINATION TYPE: NM bone scan whole body DATE OF EXAM: 05/16/2024 2:31 PM CLINICAL INDICATION:Female, 79 years old with history of C50.411 BREAST CX; COMPARISON: CT 05/15/2024 TECHNIQUE: Intravenous administration 19.1 mCi Tc 99m MDP followed by multiple scintigraphic images o f the appendicular and axial skeleton. Small [id number] abdomen and thorax imaging was performed a nd submitted on a separate workstation. Images acquired 6 hours post injection. FINDINGS: No abnormal uptake is identified within the appendicular or axial skeleton to suggest metastatic dise ase. Increased uptake at the expected location of the severe uptake on prior CT at L2-L3. Focal uptake wit hin the right breast compatible degeneration. There is increased uptake within the bilateral shoulder, sternoclavicular, and sacroiliac joints con sistent with degenerative changes. No other photopenic areas or areas of increased activity are ident ified. Physiologic radiotracer activity is demonstrated in the kidneys and bladder. IMPRESSION: 1. Nothing to suggest metastatic disease. 2. Increased uptake within the L2-L3 adjoining endplates compatible with degeneration when correlati ng with CT. 3. Degeneration uptake in the right wrist. [facility], , 05/16/2024 4:30 PM
== END | disposition home or self-care (01) ==
LOC: RADNMMAIN 07:07
PROVIDERS: ATTEND Internal Medicine Hematology & Oncology
DX: C50.411 Malignant neoplasm of upper-outer quadrant of right female breast (principal); M19.031 Primary osteoarthritis, right wrist
CPT/HCPCS: 78306; A9503